=== PATIENT | male | born 1975 | race Caucasian/White ===

== ENCOUNTER 2018-06-05 07:58 | Inpatient (IN) | payer OTHER ==
[~2018-06-05] VITALS: Ht 170.2 cm; Wt 72.0 kg
[2018-06-05] VITALS (10 sets, daily range): BP systolic 89–111; BP diastolic 61–90; PULSE 99–108; RESP 13–36; Ht 170.2 cm; Wt 72.0 kg
[2018-06-05] MEDS ORDERED: CEFEPIME 2GM/50 ML (PMX) 50 ML IVPB STA (08:05)
[2018-06-05] MEDS ORDERED: SOD CHLORIDE 0.9% 1,000 ML IV STA ×2 (08:05)
[2018-06-05] MEDS ORDERED: SODIUM CHLORIDE 0.9% 1L BAG IV* STA (08:05)
[2018-06-05] MEDS ORDERED: AMIODARONE 150 MG INJ IV STA (08:14)
[2018-06-05] MEDS ORDERED: ASPIRIN 325 MG TAB PO ONE (08:30)
[2018-06-05] MEDS ORDERED: VANCOMYCIN 1 GM (PMX) 250 ML IVPB ONE (08:30)
[2018-06-05] MEDS ORDERED: FAMOTIDINE 20 MG INJ IV ONE (08:30)
[2018-06-05] MEDS ORDERED: IOHEXOL 100 ML ONE (09:43)
[2018-06-05] MEDS ORDERED: SOD CHLORIDE 0.9% 100 ML ONE (09:44)
[2018-06-05] MEDS ORDERED: LISI10TA2 PO (09:52)
[2018-06-05] MEDS ORDERED: SPIR25TA PO (09:52)
[2018-06-05] MEDS ORDERED: ASPI-817 PO (09:53)
[2018-06-05] MEDS ORDERED: FURO40TA4 PO (09:53)
[2018-06-05] MEDS ORDERED: FENTAnyl 50 MCG/ML VIAL IV ONE (10:00)
[2018-06-05] MEDS ORDERED: ONDANSETRON 4 MG INJ IV PRN (11:00)
[2018-06-05] MEDS ORDERED: morphine 2 MG INJ IV PRN (11:00)
[2018-06-05] MEDS ORDERED: NACL 0.9% 3 ML SYG IV SCH (11:00)
[2018-06-05] MEDS ORDERED: ACETAMINOPHEN 325 MG TAB PO PRN (11:00)
[2018-06-05] MEDS ORDERED: NITROGLYCERIN (SL) 0.4 MG TAB SL PRN (11:00)
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
[2018-06-05] MEDS ORDERED: POTASSIUM CHLORIDE 100 ML IVPB SCH (11:30)
--- NOTE | 2018-06-05 11:51 | ERD ---
ER Documentation Chief Complaint Chief Complaint PT BIB RA 40 with c/o cardiac arrest and ROSC HPI This is a 42-year-old male with a past medical history of hypertension and suspected congestive heart failure as the patient takes Lasix and spironolactone. The patient was brought into the emergency department by EMS after a witnessed arrest. Bystanders which indicated to EMS were friends and coworkers stated that they noticed the patient walking to work when he suddenly fell over and became unresponsive. EMS indicated there is no signs of trauma or drug paraphernalia and the pupils were dilated. When EMS arrived they indicated that the patient was pulseless and placed on a monitor which indicated ventricular fibrillation. The patient underwent brisk chest compressions according to EMS and they administered cardioversion with the patient being placed on high flow supplemental oxygen. They had return of spontaneous ci rculation. When the patient had arrived to the emergency department he was now alert awake and responsive. He stated he did not remember what it happened. He stated he has a history of amphetamine abuse but denies IV opiate use. He states he has no history of alcoholism. He was not complaining of chest pain but was complaining of mild shortness of breath. He denies any recent travel or prolonged immobilization. ROS All systems reviewed and are negative except as per history of present illness. Medications Home Meds Reported Medications Furosemide* (Furosemide*) 40 Mg Tablet, 40 MG PO DAILY, TAB 06/05/18 Aspirin* (Aspirin* EC) 81 Mg Tablet.dr, 81 MG PO DAILY, TAB 06/05/18 Spironolactone* (Aldactone*) 25 Mg Tablet, 25 MG PO DAILY, #30 TAB 06/05/18 Lisinopril* (Lisinopril*) 10 Mg Tablet, 10 MG PO DAILY, #30 TAB 06/05/18 Allergies Allergies: Coded Allergies: No Known Allergy (Unverified , 06/05/18) PMhx/Soc History of Surgery: No Anesthesia Reaction: No Hx Neurological Disorder: No Hx Respiratory Disorders: No Hx Cardiac Disorders: Yes (CHF, arrythmia) Hx Psychiatric Problems: No Hx Miscellaneous Medical Probl: Yes (HTN) Hx Alcohol Use: No Hx Substance Use: Yes (Meth, Marijuana) Hx Tobacco Use: Yes (pk/day) Smoking Status: Current every day smoker Physical Exam Vitals Vital Signs Date Temp Pulse Resp B/P (MAP) Pulse Ox O2 O2 Flow FiO2 Time Delivery Rate 3/30/19 98.1 104 18 109/85 100 Room Air 10:00 (93) 06/05/18 108 20 89/61 (70) 100 Non 09:00 Rebreather 06/05/18 98.8 128 30 104/69 100 08:01 (81) 06/05/18 Non 15 08:00 Rebreather 06/05/18 15.0 08:00 Physical Exam Constitutional:Well-developed. Well-nourished. Disheveled HEENT:Normocephalic. Atraumatic.Pupils were 4 mm equal round reactive to light. Dry mucous membranes.No tonsillar exudates. Neck: No nuchal rigidity. No lymphadenopathy. No posterior cervical spine tenderness or step-offs. Respiratory: Not using accessory muscles of respiration.Lungs were clear to auscultation bilaterally. No rhonchi. No rales. No wheezing. Cardiovascular: Regular rate regular rhythm.No murmurs. No rubs were appreciated.S1, S2 normal. Distal pulses are palpable 2+ bilaterally. GI: Abdomen was soft. Nontender. Non Distended. No pulsatile abdominal masses or bruits. No rebound. No guarding. Bowel sounds were present and normal. Muscle skeletal: Full range of motion of both the upper and lower extremities bilaterally.Normal muscle tone.No assymetrical calf tenderness or swelling. Skin: Diffuse pallor. No petechia, no purpura. No lesions on the palms or the soles of the feet. No maculopapular rash. NEURO: Patient was alert, awake, orientated to person place and time. The patient appeared very confused and nervous as he stated he did not remember what happened. Gait was not initially observed. Speech had regular rate and articulation. No facial droop. Result Diagram: 06/05/18 0811 06/05/18 0832 Results 24 hrs Laboratory Tests Test 06/05/18 08:02 06/05/18 08:11 06/05/18 08:19 06/05/18 08:32 Bedside Glucose 254 mg/dL White Blood 8.2 10^3/ul Count Red Blood Count 4.83 10^6/ul Hemoglobin 11.3 g/dl Hematocrit 37.8 % Mean Corpuscular 78.3 fl Volume Mean Corpuscular 23.4 pg Hemoglobin Mean Corpuscular 29.9 g/dl Hemoglobin Denise nt Red Cell 16.5 % Distribution Width Platelet Count 287 10^3/UL Mean Platelet 9.4 fl Volume Immature 1.100 % Granulocytes % Neutrophils % 63.5 % Lymphocytes % 26.8 % Monocytes % 5.3 % Eosinophils % 2.7 % Basophils % 0.6 % Nucleated Red 0.0 /100WBC Blood Cells % Immature 0.090 10^3/ul Granulocytes # Neutrophils # 5.2 10^3/ul Lymphocytes # 2.2 10^3/ul Monocytes # 0.4 10^3/ul Eosinophils # 0.2 10^3/ul Basophils # 0.1 10^3/ul Nucleated Red 0.0 10^3/ul Blood Cells # Prothrombin Time 14.3 Sec Prothrombin Time 1.1 Ratio INR 1.10 International Normalized Ratio Activated 27.5 Sec Partial Thrombop last Time Magnesium Level 2.0 mg/dl D-Dimer 3965.54 ng/ml D-Dimer Comment Sodium Level 140 mmol/L Potassium Level 3.4 mmol/L Chloride Level 104 mmol/L Carbon Dioxide 25 mmol/L Level Anion Gap 11 Blood Urea 19 mg/dl Nitrogen Creatinine 1.17 mg/dl Est Glomerular > 60 mL/min Filtrat Rate mL/min Glucose Level 165 mg/dl Lactic Acid 2.9 mmol/L Level Calcium Level 8.6 mg/dl Total Bilirubin 1.3 mg/dl Direct Bilirubin 0.00 mg/dl Indirect 1.3 mg/dl Bilirubin Aspartate Amino 32 IU/L Transf (AST/SGOT ) Alanine 24 IU/L Aminotransferase (ALT/SGPT) Alkaline 102 IU/L Phosphatase Ammonia 24 umol/l Creatine Kinase 129 IU/L Creatine Kinase 2.2 Index Creatinine 2.84 ng/ml Kinase MB (Mass) Troponin I 0.025 ng/ml Total Protein 7.2 g/dl Albumin 3.9 g/dl Globulin 3.30 g/dl Albumin/Globulin 1.18 Ratio Free Thyroxine 2.18 ug/ml Index Thyroxine (T4) 6.5 ug/dl Triiodothyronine 33.6 % (T3) Uptake Salicylates < 1.0 mg/dl Level Acetaminophen < 10.0 ug/ml Level Ethyl Alcohol < 10.0 mg/dl Level Test 06/05/18 09:38 06/05/18 10:50 Blood Gas Blood arterial Specimen Source Arterial Blood 06/05/2018 11:23 Date Drawn :00 AM Arterial Blood 7.335 pH (Temp corrected) Arterial Blood 37.8 mmhg pCO2 (Temp correct) Arterial Blood 131.3 mmHG pO2 (Temp corrected) Arterial Blood 19.7 mmol/L HCO3 Arterial Blood -5.6 mmol/L Base Excess Arterial Blood 98.1 mmHG Oxygen Saturatio n Ronni Test N/A Arterial Blood Right Brachial Gas Puncture Site Arterial 0.9 % Blood Carboxyhem oglobin Arterial Blood 0.3 % Methemoglobin Blood Gas A-a O2 59.9 mmHg Differential Oxyhemoglobin 96.9 % Percent Blood Gas 37.0 C Temperature Blood Gas NASAL CANNULA Modality FiO2 33.0 % Blood Gas MDA Notified Whom Blood Gas 06/05/2018 11:26 Notified Time :24 AM Lactic Acid 1.8 mmol/L Level Current Medications Medications Dose Sig/Love Start Time Status Last (Trade) Ordered Route PRN Stop Time Admin Dose Reason Admin Sodium 1,000 ml @ Q1H STAT 06/05/18 DC 06/05/18 Chloride 1,000 mls/hr IV 08:05 08:19 06/05/18 09:04 Sodium 1,000 ml @ Q1H STAT 06/05/18 DC 06/05/18 Chloride 1,000 mls/hr IV 08:05 10:50 06/05/18 09:04 Sodium 2,160 ml BOLUS OVER 2 06/05/18 DC 06/05/18 Chloride HOURS STAT 08:05 08:05 (NS) IV* 06/05/18 08:10 Famotidine 20 mg ONCE ONCE 06/05/18 DC 06/05/18 (Pepcid Iv) IV 08:30 08:19 06/05/18 08:31 Cefepime HCl 50 ml @ ONCE STAT 06/05/18 DC 06/05/18 100 mls/hr IVPB 08:05 09:02 06/05/18 08:34 Vancomycin 250 ml @ ONCE ONCE 06/05/18 DC 06/05/18 HCl 125 mls/hr IVPB 08:30 09:52 06/05/18 10:29 Amiodarone 150 mg ONCE STAT 06/05/18 DC 06/05/18 HCl IV 08:14 08:26 (Cordarone) 06/05/18 08:15 Aspirin 325 mg ONCE ONCE 06/05/18 DC (Aspirin) PO 08:30 06/05/18 08:31 Fentanyl 50 mcg ONCE ONCE 06/05/18 DC 06/05/18 (Sublimaze) IV 10:00 10:01 06/05/18 10:01 Iohexol 100 ml @ ud STK-MED 06/05/18 DC ONCE .ROUTE 09:43 06/05/18 09:44 Sodium 100 ml @ ud STK-MED 06/05/18 DC 06/05/18 Chloride ONCE .ROUTE 09:44 10:31 06/05/18 09:45 Sodium 1,000 ml @ Q24H IV 06/05/18 Chloride 40 mls/hr 10:58 IV Flush 3 ml PER 06/05/18 (NS 3 ml) PROTOCOL IV 11:00 Lorazepam 0.5 mg Q6H PRN 06/05/18 (Ativan) IV .ANXIETY 11:00 Ondansetron 4 mg Q6H PRN 06/05/18 HCl (Zofran IV 11:00 Inj) NAUSEA/VOMITI NG 1 tab Q5M PRN 06/05/18 Nitroglycerin SL .CHEST 11:00 PAIN (Nitroglyceri n (Sl Tab) 0.4 Mg) 650 mg Q6H PRN 06/05/18 Acetaminophen PO .PAIN 1-3 11:00 (Tylenol OR TEMP Tab) 1 tab Q6H PRN 06/05/18 Acetaminophen PO .PAIN 4-6 11:00 / Hydrocodone Bitart ([place] (5/325)) Morphine 2 mg Q4H PRN 06/05/18 Sulfate IV .PAIN 11:00 (morphine) 7-10 40 mg DAILY@06 06/06/18 Pantoprazole IV 06:00 (Protonix Iv) Aspirin 81 mg DAILY PO 06/06/18 (Aspirin) 09:00 80 mg HS PO 06/05/18 Atorvastatin 21:00 Calcium (Lipitor) Potassium 100 ml @ Q2H IVPB 06/05/18 Chloride 50 mls/hr 11:30 06/05/18 15:29 Procedures/MDM The patient presented to the emergency department with an acute and persistent change in their mental status. The differential diagnosis is diverse however reversible causes such as hypoglycemia, opiate overdose, thiamine deficiency were immediately considered. The patient was placed on a plant protection officer, continuous pulse oximetry and IV access was established. The patients airway was secure however hypoxic events such as anemia, shock, or severe pulmonary disease were all considered as etiologies in this patients presentation. Circulation assessed with good cap refill and did not require fluids or pressure support. Finger stick for rapid glucose determined to be normal. The patient had a suspected witnessed cardiac arrest with return of spontaneous circulation. An EKG at 8:00 was immediately obtained upon arrival into the emergency department. 12 Lead EKG tracing ordered and reviewed by myself showed: Sinus tachycardia 110 bpm and no arrhythmia. DC interval normal. QRS duration normal. No ST segment elevation. Left ventricular hypertrophy No ST segment depression. No changes consistent with acute ischemia. The patient was placed on high flow supplemental oxygen however the patient was maintaining his airway. He was alert awake orientated x3. The patient did have return of spontaneous circulation given his clinical history but did not meet hypothermic protocol as the patient was now alert and awake. I did administer amiodarone. I also administered aspirin. He was complaining of mild shortness of breath and therefore obtained a d-dimer which was elevated. He had a CT scan of his chest reviewed by myself the radiologist which showed no signs of aortic dissection or pulmonary embolism. He did have pulmonary vascular congestion. The patient was given gentle IV fluid hydration as he did have an elevated lactic acid and met Sirs criteria upo n arrival. Therefore he was treated for sepsis of unclear etiology. Patient's infectious symptoms have not stabilized and the patient is at risk of rapid decompensation. The patient will be admitted for careful hydration, antibiotic therapy, and infectious source control. Severe Sepsis Assessment: Infectious Source: unknown End organ damage indicated by: Lactate > 2.0 mmol/L Hypotension( SBP < 90 or >40 mmHG drop or MAP < 65) Acute Resp Failure (sat < 92% w/o oxygen) Severe Sepsis Managment: Blood Cultures X 2 before broad spectrum antibiotics initiated within 3 hours of recognition. 30 ml/kg NS bolus Completed Initial Lactate: 2.9 Repeat Lactate pending Septic Shock Assessment (1 hour post 30 ml/kg fluid bolus): Hypotension (SBP < 90 or 40 mmHg drop, MAP < 65): No Lactic acid > 4.0 No The patient began to complain of chest pain at around 9:09 AM. Therefore an EKG was immediately obtained. This was reviewed by myself and indicated the patient had a normal sinus rhythm at 96 bpm. The patient still had criteria for left ventricular hypertrophy however also showed some ischemic changes in the lateral leads with ST segment depression in V4 V5 and V6 however there is no underlying ST segment elevation or depression. At this time I spoke with the correction officer supervisor Dr. Vinson kindly stated he will come to the bedside to evaluate the patient to discuss possible cardiac catheterization. The patient was not a STEMI. I considered further perfusion assessment with CVP measurement, SCVO2, bedside ultrasound volume assessment, passive leg raise, trial of further fluid bolus. And preceded with gentle IV fluid resuscitation but did not receive a total of 30 cc/kg normal saline due to potential fluid overload. Patient will be admitted in serious condition under the care of Dr. Aldridge to the intensive care unit. Critical Care: Time: 120 minutes Treatments/Evaluations: Close monitoring and treatment of unstable vital signs, cardiorespiratory, and neurologic status, while maintaining tight balance of fluid, respiratory, and cardiac interventions. Time does not include performing any of the above billable procedures. Departure Diagnosis: Primary Impression: Ventricular fibrillation Additional Impressions: Signs of return of spontaneous circulation Sepsis Sepsis type: sepsis due to unspecified organism Qualified Codes: A41.9 - Sepsis, unspecified organism Condition: Serious COLLETTE SHERMAN MD Jun 05, 2018 11:38
[2018-06-05] MEDS: SOD CHLORIDE 0.9% 1,000 ML IV SCH ×2 (12:07→16:36)
--- NOTE | 2018-06-05 12:23 | CONS ---
Assessment/Plan Assessment/Plan Hospital Course (Demo Recall) 1. V. fib cardiac arrest 2. Status post cardiopulmonary arrest secondary to above 3. Congestive heart failure rule out severe cardiomyopathy 4. Rule out acute coronary syndrome [place] 5. History of methamphetamine use 6. Noncompliance 7. Smoker 8. Prolonged QT and EKG Recommendations: Replace electrolytes including potassium magnesium to bring potassium more than 4 a mag more than 2.0 Beta-lucille if blood pressure allows Patient was recommended to undergo urgent left heart catheterization coronary angiogram percutaneous coronary intervention. However patient tells me that "is not ready for it yet" he refused to have it done today. Patient is to be closely monitored for any recurrence of ventricular arrhythmias. He has been strongly advised against using drugs and smoking echocardiogram More than 30 minutes critical care time was for management treatment is critically patient excluding any procedures Thank you for his referral. We will continue to follow along with you ALEX OLSEN MD [facility] Consultation Date/Type/Reason Admit Date/Time Date of Consultation: Jun 05, 2018 Type of Consult Cardiology Reason for Consultation VF cardiac arrest Requesting Provider: COLLETTE SHERMAN MD Date/Time of Note DATE: 06/05/18 TIME: 12:17 Hx of Present Illness Urgent interventional cardiology consultation note Chief complaint: V. fib cardiac arrest Reason for consult: V. fib cardiac arrest History of present illness: Thank you for this referral. History was obtained partially from the patient who is a poor historian. From discussion with physician staff including ER physicians This is a 42-year-old male with past medical history significant for congestive heart failure , meth use [place] [facility] [place]opulmonary arrest found to be in V. fib arrest by paramedics in the field. According to bystanders from EMS patient was going to work and as he was walking from his car to the shop he suddenly passed out. EMS approached patient and although was thought to be pulseless, after the pads were attached was found to be in V. fib arrest and patient was immediately shocked. Patient received quality CPR throughout this time. Per report when he arrived to the hospital he spontaneously instantly woke up alert and oriented and the first things that he said was "what happened to me, was shot or stabbed?". Currently patient is seen but arousable. Patient does admit to using meth last night Patient currently denies chest pain although when he arrived he was given pain medication due to intense pain in the chest. Patient denies any discomfort in the abdomen, nausea, vomiting, headache, leg pain. Allergies: No known drug allergies Medications aspirin lisinopril Lasix. However patient admits that he has not been very compliant taking them Family history: Denies any early coronary artery disease to me Social history: Active smoker. Use drug including meds. Denies heavy alcohol use Past medical history: "Irregular heartbeat, congestive heart failure Review of system: Patient denies all others except for above-mentioned Past Medical History Home Meds Reported Medications Furosemide* (Furosemide*) 40 Mg Tablet, 40 MG PO DAILY, TAB 06/05/18 Aspirin* (Aspirin* EC) 81 Mg Tablet.dr, 81 MG PO DAILY, TAB 06/05/18 Spironolactone* (Aldactone*) 25 Mg Tablet, 25 MG PO DAILY, #30 TAB 06/05/18 Lisinopril* (Lisinopril*) 10 Mg Tablet, 10 MG PO DAILY, #30 TAB 06/05/18 Medications Current Medications Sodium Chloride 1,000 ml @ 40 mls/hr Q24H IV Last administered on 06/05/18at 12:07; Admin Dose 40 MLS/HR; Start 06/05/18 at 10:58 IV Flush (NS 3 ml) 3 ml PER PROTOCOL IV ; Start 06/05/18 at 11:00 Lorazepam (Ativan) 0.5 mg Q6H PRN IV .ANXIETY; Start 06/05/18 at 11:00 Ondansetron HCl (Zofran Inj) 4 mg Q6H PRN IV NAUSEA/VOMITING; Start 06/05/18 at 11:00 Nitroglycerin (Nitroglycerin (Sl Tab) 0.4 Mg) 1 tab Q5M PRN SL .CHEST PAIN; Start 06/05/18 at 11:00 Acetaminophen (Tylenol Tab) 650 mg Q6H PRN PO .PAIN 1-3 OR TEMP; Start 06/05/18 at 11:00 Acetaminophen/ Hydrocodone Bitart ([place] (5/325)) 1 tab Q6H PRN PO .PAIN 4-6; Start 06/05/18 at 11:00 Morphine Sulfate (morphine) 2 mg Q4H PRN IV .PAIN 7-10; Start 06/05/18 at 11:00 Pantoprazole (Protonix Iv) 40 mg DAILY@06 IV ; Start 06/06/18 at 06:00 Aspirin (Aspirin) 81 mg DAILY PO ; Start 06/06/18 at 09:00 Atorvastatin Calcium (Lipitor) 80 mg HS PO ; Start 06/05/18 at 21:00 Potassium Chloride 100 ml @ 50 mls/hr Q2H IVPB Last administered on 06/05/18at 12:06; Admin Dose 50 MLS/HR; Start 06/05/18 at 11:30; Stop 06/05/18 at 15:29 Allergies: Coded Allergies: No Known Allergy (Unverified , 06/05/18) Social History Smoking Status: Current every day smoker Exam/Review of Systems Vital Signs Vitals Vital Signs Date Temp Pulse Resp B/P (MAP) Pulse Ox O2 O2 Flow FiO2 Time Delivery Rate 06/05/18 98.1 104 18 109/85 100 Room Air 10:00 (93) 06/05/18 15 08:00 Exam Exam General: no acute distress HEENT: NC/AT. pupils are equal. round. NECK: NO JVD. no stridor. CV: RRR. systolic murmur; no gallop or rubs. PULM: no wheezing or rhonchi. GI: SOFT, NT, ND, no rebound or guarding Extremity: trace B/L LE edema. no clubbing. neuro: Drowsy but arousable responds appropriately Psych: calm and pleasant rectal: deferred Derm: Multiple tattoos EKG was personally reviewed which shows sinus tach with ST-T wave abnormality consistent with LVH and strain pattern there is prolonged QT also noted Head CT: No acute disease CT of chest: 1. No evidence of pulmonary embolism. 2. Diffuse ground-glass opacities and septal thickening of the bilateral lungs suggestive of pulmonary edema. Superimposed infection is not totally excluded. 3. Stable small shotty mediastinal lymph nodes may be reactive. Recommend atte ntion on follow-up. Labs Result Diagram: 06/05/18 0811 06/05/18 0832 Results 24hrs Laboratory Tests Test 06/05/18 08:02 06/05/18 08:11 06/05/18 08:19 06/05/18 08:32 Bedside Glucose 254 H White Blood 8.2 Count Red Blood Count 4.83 Hemoglobin 11.3 L Hematocrit 37.8 L Mean Corpuscular 78.3 L Volume Mean Corpuscular 23.4 L Hemoglobin Mean Corpuscular 29.9 L Hemoglobin Denise nt Red Cell 16.5 H Distribution Width Platelet Count 287 Mean Platelet 9.4 Volume Immature 1.100 H Granulocytes % Neutrophils % 63.5 Lymphocytes % 26.8 Monocytes % 5.3 Eosinophils % 2.7 Basophils % 0.6 Nucleated Red 0.0 Blood Cells % Immature 0.090 H Granulocytes # Neutrophils # 5.2 Lymphocytes # 2.2 Monocytes # 0.4 Eosinophils # 0.2 Basophils # 0.1 Nucleated Red 0.0 Blood Cells # Prothrombin Time 14.3 Prothrombin Time 1.1 Ratio INR 1.10 International Normalized Ratio Activated 27.5 Partial Thrombop last Time Magnesium Level 2.0 D-Dimer 3965.54 H D-Dimer Comment Sodium Level 140 Potassium Level 3.4 L Chloride Level 104 Carbon Dioxide 25 Level Anion Gap 11 Blood Urea 19 Nitrogen Creatinine 1.17 Est Glomerular > 60 Filtrat Rate mL/min Glucose Level 165 Lactic Acid 2.9 *H Level Calcium Level 8.6 Total Bilirubin 1.3 Direct Bilirubin 0.00 Indirect 1.3 H Bilirubin Aspartate Amino 32 Transf (AST/SGOT ) Alanine 24 Aminotransferase (ALT/SGPT) Alkaline 102 Phosphatase Ammonia 24 Creatine Kinase 129 Creatine Kinase 2.2 Index Creatinine 2.84 H Kinase MB (Mass) Troponin I 0.025 Total Protein 7.2 Albumin 3.9 Globulin 3.30 H Albumin/Globulin 1.18 Ratio Free Thyroxine 2.18 Index Thyroxine (T4) 6.5 Triiodothyronine 33.6 (T3) Uptake Salicylates < 1.0 L Level Acetaminophen < 10.0 L Level Ethyl Alcohol < 10.0 H Level Test 06/05/18 09:38 06/05/18 10:40 06/05/18 10:50 Blood Gas Blood arterial Specimen Source Arterial Blood 06/05/2018 11:23 Date Drawn :00 AM Arterial Blood 7.335 L pH (Temp corrected) Arterial Blood 37.8 pCO2 (Temp correct) Arterial Blood 131.3 H pO2 (Temp corrected) Arterial Blood 19.7 L HCO3 Arterial Blood -5.6 L Base Excess Arterial Blood 98.1 H Oxygen Saturatio n Ronni Test N/A Arterial Blood Right Brachial Gas Puncture Site Arterial 0.9 Blood Carboxyhem oglobin Arterial Blood 0.3 Methemoglobin Blood Gas A-a O2 59.9 H Differential Oxyhemoglobin 96.9 Percent Blood Gas 37.0 Temperature Blood Gas NASAL CANNULA Modality FiO2 33.0 Blood Gas MDA Notified Whom Blood Gas 06/05/2018 11:26 Notified Time :24 AM Urine Color YELLOW Urine Clarity SLIGHTLY CLOUDY A Urine pH 6.0 Urine Specific 1.038 H [place] Urine Ketones NEGATIVE Urine Nitrite NEGATIVE Urine Bilirubin NEGATIVE Urine NEGATIVE Urobilinogen Urine Leukocyte NEGATIVE Esterase Urine 15 H Microscopic RBC Urine 17 H Microscopic WBC Urine Bacteria FEW A Urine Hemoglobin NEGATIVE Urine Glucose 1+ H Urine Total 2+ H Protein Urine Opiates Negative Screen Urine Negative Barbiturates Urine positive Amphetamines Screen Urine Negative Benzodiazepines Screen Urine Cocaine Negative Screen Urine Negative Cannabinoids Lactic Acid 1.8 Level Medications Medications Current Medications Sodium Chloride 1,000 ml @ 40 mls/hr Q24H IV Last administered on 06/05/18at 12:07; Admin Dose 40 MLS/HR; Start 06/05/18 at 10:58 IV Flush (NS 3 ml) 3 ml PER PROTOCOL IV ; Start 06/05/18 at 11:00 Lorazepam (Ativan) 0.5 mg Q6H PRN IV .ANXIETY; Start 06/05/18 at 11:00 Ondansetron HCl (Zofran Inj) 4 mg Q6H PRN IV NAUSEA/VOMITING; Start 06/05/18 at 11:00 Nitroglycerin (Nitroglycerin (Sl Tab) 0.4 Mg) 1 tab Q5M PRN SL .CHEST PAIN; Start 06/05/18 at 11:00 Acetaminophen (Tylenol Tab) 650 mg Q6H PRN PO .PAIN 1-3 OR TEMP; Start 06/05/18 at 11:00 Acetaminophen/ Hydrocodone Bitart ([place] (5/325)) 1 tab Q6H PRN PO .PAIN 4-6; Start 06/05/18 at 11:00 Morphine Sulfate (morphine) 2 mg Q4H PRN IV .PAIN 7-10; Start 06/05/18 at 11:00 Pantoprazole (Protonix Iv) 40 mg DAILY@06 IV ; Start 06/06/18 at 06:00 Aspirin (Aspirin) 81 mg DAILY PO ; Start 06/06/18 at 09:00 Atorvastatin Calcium (Lipitor) 80 mg HS PO ; Start 06/05/18 at 21:00 Potassium Chloride 100 ml @ 50 mls/hr Q2H IVPB Last administered on 06/05/18at 12:06; Admin Dose 50 MLS/HR; Start 06/05/18 at 11:30; Stop 06/05/18 at 15:29 ALEX OLSEN MD Jun 05, 2018 12:23
[2018-06-05] MEDS ORDERED: MAGNESIUM SULFATE 2 GM/50 ML 50 ML IVPB ONE (12:30)
[2018-06-05] MEDS: HYDROCODONE/APAP (5/325) TAB PO PRN (13:26)
[2018-06-05] MEDS ORDERED: POTASSIUM CHLORIDE 20 MEQ POWDER FOR ORAL SOLN PO ONE (13:30)
[2018-06-05] MEDS: ATORVASTATIN 80 MG TAB PO SCH (20:37)
[2018-06-06] VITALS (19 sets, daily range): BP systolic 106–139; BP diastolic 69–100; PULSE 97–122; RESP 11–33
[2018-06-06] MEDS: HYDROCODONE/APAP (5/325) TAB PO PRN (03:11)
[2018-06-06] MEDS ORDERED: PANTOPRAZOLE 40 MG INJ IV SCH (06:00)
[2018-06-06] MEDS: ASPIRIN 81 MG TAB PO SCH (08:56)
--- NOTE | 2018-06-06 09:21 | PN ---
Date/Time of Note Date/Time of Note DATE: 06/06/18 TIME: Objective Vitals Vital Signs Date Temp Pulse Resp B/P (MAP) Pulse Ox O2 O2 Flow FiO2 Time Delivery Rate 06/06/18 97.7 105 31 126/90 95 Room Air 08:00 (102) 06/05/18 2.0 17:00 Intake and Output 06/05/18 06/05/18 06/06/18 1515:00 23:00 07:00 IntakeIntake Total 2300 ml 1210 ml 580 ml OutputOutput Total 375 ml BalanceBalance 2300 ml 835 ml 580 ml Results Result Diagram: 06/06/18 0450 06/06/18 0449 Medications Medications Current Medications Sodium Chloride 1,000 ml @ 40 mls/hr Q24H IV Last administered on 06/05/18at 16:36; Admin Dose 40 MLS/HR; Start 06/05/18 at 10:58 IV Flush (NS 3 ml) 3 ml PER PROTOCOL IV ; Start 06/05/18 at 11:00 Lorazepam (Ativan) 0.5 mg Q6H PRN IV .ANXIETY; Start 06/05/18 at 11:00 Ondansetron HCl (Zofran Inj) 4 mg Q6H PRN IV NAUSEA/VOMITING; Start 06/05/18 at 11:00 Nitroglycerin (Nitroglycerin (Sl Tab) 0.4 Mg) 1 tab Q5M PRN SL .CHEST PAIN; Start 06/05/18 at 11:00 Acetaminophen (Tylenol Tab) 650 mg Q6H PRN PO .PAIN 1-3 OR TEMP; Start 06/05/18 at 11:00 Acetaminophen/ Hydrocodone Bitart ([place] (5/325)) 1 tab Q6H PRN PO .PAIN 4-6 Last administered on 06/06/18at 03:11; Admin Dose 1 TAB; Start 06/05/18 at 11:00 Morphine Sulfate (morphine) 2 mg Q4H PRN IV .PAIN 7-10; Start 06/05/18 at 11:00 Pantoprazole (Protonix Iv) 40 mg DAILY@06 IV Last administered on 06/06/18at 05:41; Admin Dose 40 MG; Start 06/06/18 at 06:00 Aspirin (Aspirin) 81 mg DAILY PO Last administered on 06/06/18at 08:56; Admin Dose 81 MG; Start 06/06/18 at 09:00 Atorvastatin Calcium (Lipitor) 80 mg HS PO Last administered on 06/05/18at 20:37; Admin Dose 80 MG; Start 06/05/18 at 21:00 VTE Prophylaxis Risk score (from [facility] [place] risk: 2 SCD applied (from [facility] [place]): No SCD contraindication: other Lines/Catheters IV Catheter Type: Hernandez in Place: No Assessment/Plan Hospital Course Subjective Patient doing well, just complaining of chest discomfort when he takes breaths. Objective Physical exam General: Patient is laying in bed and answers questions appropriately Mentation: Patient is alert and oriented 4, Head: Normocephalic atraumatic Eyes: EOMI, pupils reactive to light Neck: Supple, nontender, midline Respiratory: Clear to auscultation bilaterally Cardiovascular: regular rate, no obvious murmurs Gastrointestinal: non-tender to palpation, bowel sounds heard. Neurological: Moves all extremities spontaneously Skin: No new skin lesions Assessment and plan Cardiopulmonary arrest, V. fib arrest -Shock x1 in the field -Regained complete consciousness, alert and oriented x4, at baseline no apparent residual effects -Most likely secondary to meth use recently and his already failing heart -EKG concerning for ischemia, cardiology recommended cardiac cath, however patient refused yesterday, will think about it, possible today. -Non-ST elevation CO per cardiology per ER doctor -CT head negative, CTA of the chest showing some edema, likely secondary to above cardiopulmonary arrest Likely congestive heart failure -Patient states that he has some heart issues due to meth, likely CHF -Echo noted -Cardiology consulted -Resume home meds of diuretics and blood pressure meds when okay with cardiology Elevated lactic acid -Likely due to cardiopulmonary arrest, monitor Chest pain -Secondary to above cardiopulmonary arrest as well as CPR, pain management as needed Electronic derangement -Replace as needed If disposition -Patient is alert and oriented, cardiology recommendations appreciated, patient to decide if he is okay with cardiac cath or not. DEBI KING Jun 06, 2018 09:21
[2018-06-06] MEDS: SOD CHLORIDE 0.9% 1,000 ML IV SCH (15:52)
[2018-06-06] MEDS ORDERED: morphine LIQ (10 MG/5 ML) CUP PO PRN (16:00)
--- NOTE | 2018-06-06 16:21 | PN ---
DATE: 06/06/2018 INTERVENTIONAL CARDIOLOGY FOLLOWUP PROGRESS NOTE AND CRITICAL CARE SUBJECTIVE: I discussed with the staff. Telemetry was reviewed. The patient has remained in sinus tachycardia mostly. I discussed with 2 brothers in detail. The patient did complain of chest wall t enderness. It is worse with touch. He denies PND or orthopnea to me. MEDICATIONS: Reviewed as per medical reconciliation sheet which was personally reviewed. PHYSICAL EXAMINATION: VITAL SIGNS: Temperature 98, heart of 110, blood pressure of 120/100, respiratory rate of 29. GENERAL: Appears anxious gentleman. HEENT: Normocephalic, atraumatic. Pupils are equal and round. CARDIOVASCULAR: Tachycardic. PULMONARY: With no wheezes heard. Minimal rhonchi at the base. GASTROINTESTINAL: Soft, nontender. CHEST: Positive for reproducible chest wall tenderness with mild palpation. EXTREMITIES: With trivial lower extremity edema. NEUROLOGIC: He is awake and alert. PSYCHIATRIC: Anxious, overall stable. LABORATORY: WBC of 10.2, hemoglobin 11.1, platelets of 294. Sodium 137, potassium 5, BUN of 22, cre atinine 1.18, glucose of 117. Troponin has been negative. LDL is 87, HDL of 27. TSH is 0.46. DIAGNOSTIC DATA: Echocardiogram has showed severe LV dysfunction. ASSESSMENT AND PLAN: 1. Cardiac arrest. 2. Ventricular fibrillation, status post cardioversion. 3. Severe cardiomyopathy. 4. History of drug use. 5. Smoker. 6. History of noncompliance. 7. Prolonged QT on the EKG. RECOMMENDATIONS: Electrolytes including potassium and magnesium will be replaced as needed. Try to keep the potassium more than 4 and magnesium more than 2. I will start the patient on digoxin and ca rvedilol as tolerated increased. For now, we will continue with aspirin and statin. I have had a ve ry lengthy discussion with the patient as well as his 2 brothers. His 2 brothers appeared to be very understanding. I have explained to them that my recommendations are for the patient to get coronary angiography done and if an intervention needs to be done to have a PCI done. The patient also furth er needs to completely stay away from drugs and smoking and has to be using medication on a regular b asis. I also recommended if the patient coronary angio does not show any significant obstructive cor onary artery disease, then he would need to have a defibrillator prior to discharge. If there is a s ignificant obstructive coronary artery disease that can be intervened, then the best option would be to place a LifeVest for the next 3 months and reassess the LV function in about 3 months or so to see if he will qualify for ICD. Risks and benefits of the procedure were discussed with the patient and his 2 brothers in detail. Risk of procedure including infection, vascular complication, bleed ing complication, pneumothorax, hemothorax, perforation, [place], arrhythmia, and renal failure were discussed with them. The patient has not consented to procedure yet. If he agrees to it, we will s chedule the patient for the procedure for tomorrow. We may want to closely monitor him. Transcutane ous patches will be placed on him just in case he needed. More than 40 minutes of critical care time was spent on management and treatment of this critically i ll patient excluding any procedures. Dictated By: ALEX OLSEN MD AV/NTS Conf#: [id number] DID#: [id number] CC: DEBI KING MD;*EndCC*
[2018-06-06] MEDS: LORAZEPAM 2 MG INJ IV PRN (16:35)
[2018-06-06] MEDS: ATORVASTATIN 80 MG TAB PO SCH (20:35)
[2018-06-06] MEDS ORDERED: ZOLPIDEM 5 MG TAB PO ONE (21:30)
[2018-06-07] VITALS (13 sets, daily range): BP systolic 130–147; BP diastolic 77–91; PULSE 97–109; RESP 18–20
[2018-06-07] MEDS: LORAZEPAM 2 MG INJ IV PRN ×2 (01:56→09:29)
[2018-06-07] MEDS: PANTOPRAZOLE (EC) 40 MG TAB PO SCH (06:45)
[2018-06-07] MEDS: ASPIRIN 81 MG TAB PO SCH (09:05)
--- NOTE | 2018-06-07 09:31 | PN ---
Date/Time of Note Date/Time of Note DATE: 06/07/18 TIME: 09:31 Assessment/Plan VTE Prophylaxis Risk score (from Ns)>0 risk: 1 SCD applied (from Ns): No SCD contraindicated: low risk/ambulating Pharmacological prophylaxis: NA/contraindicated Pharm contraindication: low risk/ambulating Lines/Catheters IV C[facility]ter Type [facility]from [facility]): Peripheral IV Urinary Cath still in place: No Assessment/Plan Assessment/Plan 1. Cardiopulmonary arrest s/p V. fib arrest - Most likely secondary to meth use - Cardiology on board and appreciate recommendations. Patient to decide if amenable to cardiac cath - CT head negative, CTA of the chest showing some edema, likely secondary to above cardiopulmonary arrest 2. Severe CM - Cardiology on board and will continue current treatment - counseled about the importance of abstaining from meth use. Likely congestive heart failure - ECHO results noted 3. Anemia - will check iron levels 4. h/o substance abuse - Utox results noted 5. Acute systolic and diastolic heart failure - CTA with pulm edema and BNP elevation noted - ECHO results with EF 15% - will need defibrillator prior to d/c given h/o VFib arrest and low EF 6. Disposition - Patient to decide if he would like to proceed with cardiac cath prior to discharge Result Diagram: 06/07/18 0441 06/07/18 0441 Results 24hrs Laboratory Tests Test 06/07/18 04:41 White Blood Count 9.8 Red Blood Count 4.47 L Hemoglobin 10.7 L Hematocrit 33.9 L Mean Corpuscular Volume 75.8 L Mean Corpuscular Hemoglobin 23.9 L Mean Corpuscular Hemoglobin Concent 31.6 L Red Cell Distribution Width 17.4 H Platelet Count 297 Mean Platelet Volume 9.9 Immature Granulocytes % 0.600 H Neutrophils % 67.8 Lymphocytes % 23.6 Monocytes % 6.1 Eosinophils % 1.1 Basophils % 0.8 Nucleated Red Blood Cells % 0.0 Immature Granulocytes # 0.060 H Neutrophils # 6.6 Lymphocytes # 2.3 Monocytes # 0.6 Eosinophils # 0.1 Basophils # 0.1 Nucleated Red Blood Cells # 0.0 Sodium Level 137 Potassium Level 4.7 Chloride Level 100 Carbon Dioxide Level 24 Anion Gap 13 Blood Urea Nitrogen 21 H Creatinine 1.19 Est Glomerular Filtrat Rate mL/min > 60 Glucose Level 129 Calcium Level 9.0 Phosphorus Level 2.7 Magnesium Level 2.1 Subjective 24 Hr Interval Summary Free Text/Dictation Patient resting and in no acute distress. No acute overnight events. Exam/Review of Systems Exam Vitals Vital Signs Date Temp Pulse Resp B/P (MAP) Pulse Ox O2 O2 Flow FiO2 Time Delivery Rate 06/07/18 98.2 102 18 135/87 98 07:33 (103) 06/06/18 Room Air 17:08 06/05/18 2.0 17:00 Intake and Output 06/06/18 06/06/18 06/07/18 1515:00 23:00 07:00 IntakeIntake Total 600 ml 802 ml OutputOutput Total 300 ml 200 ml BalanceBalance 300 ml -200 ml 802 ml Exam General: Patient is laying in bed. no acute distress Neck: Supple, nontender, midline Respiratory: Clear to auscultation bilaterally. no wheezing or rhonchi Cardiovascular: regular rhythm, tachycardia, no obvious murmurs Gastrointestinal: non-tender to palpation, bowel sounds heard. Neurological: Moves all extremities spontaneously Skin: No new skin lesions Results Results 24hrs Laboratory Tests Test 06/07/18 04:41 White Blood Count 9.8 Red Blood Count 4.47 L Hemoglobin 10.7 L Hematocrit 33.9 L Mean Corpuscular Volume 75.8 L Mean Corpuscular Hemoglobin 23.9 L Mean Corpuscular Hemoglobin Concent 31.6 L Red Cell Distribution Width 17.4 H Platelet Count 297 Mean Platelet Volume 9.9 Immature Granulocytes % 0.600 H Neutrophils % 67.8 Lymphocytes % 23.6 Monocytes % 6.1 Eosinophils % 1.1 Basophils % 0.8 Nucleated Red Blood Cells % 0.0 Immature Granulocytes # 0.060 H Neutrophils # 6.6 Lymphocytes # 2.3 Monocytes # 0.6 Eosinophils # 0.1 Basophils # 0.1 Nucleated Red Blood Cells # 0.0 Sodium Level 137 Potassium Level 4.7 Chloride Level 100 Carbon Dioxide Level 24 Anion Gap 13 Blood Urea Nitrogen 21 H Creatinine 1.19 Est Glomerular Filtrat Rate mL/min > 60 Glucose Level 129 Calcium Level 9.0 Phosphorus Level 2.7 Magnesium Level 2.1 Medications Medication Current Medications Sodium Chloride 1,000 ml @ 40 mls/hr Q24H IV Last administered on 06/06/18at 15:52; Admin Dose 40 MLS/HR; Start 06/05/18 at 10:58 IV Flush (NS 3 ml) 3 ml PER PROTOCOL IV ; Start 06/05/18 at 11:00 Lorazepam (Ativan) 0.5 mg Q6H PRN IV .ANXIETY Last administered on 06/07/18 09:29; Admin Dose 0.5 MG; Start 06/05/18 at 11:00 Ondansetron HCl (Zofran Inj) 4 mg Q6H PRN IV NAUSEA/VOMITING; Start 06/05/18 at 11:00 Nitroglycerin (Nitroglycerin (Sl Tab) 0.4 Mg) 1 tab Q5M PRN SL .CHEST PAIN; Start 06/05/18 at 11:00 Acetaminophen (Tylenol Tab) 650 mg Q6H PRN PO .PAIN 1-3 OR TEMP; Start 06/05/18 at 11:00 Acetaminophen/ Hydrocodone Bitart ([place] (5/325)) 1 tab Q6H PRN PO .PAIN 4-6 Last administered on 06/06/18at 03:11; Admin Dose 1 TAB; Start 06/05/18 at 11:00 Aspirin (Aspirin) 81 mg DAILY PO Last administered on 06/07/18 09:05; Admin Dose 81 MG; Start 06/06/18 at 09:00 Atorvastatin Calcium (Lipitor) 80 mg HS PO Last administered on 06/06/18at 20:35; Admin Dose 80 MG; Start 06/05/18 at 21:00 Digoxin (Digoxin) 0.125 mg DAILY@13 PO ; Start 06/07/18 at 13:00 Carvedilol (Coreg) 3.125 mg BID PO Last administered on 06/07/18at 09:06; Admin Dose 3.125 MG; Start 06/06/18 at 21:00 Pantoprazole (Protonix Tab) 40 mg DAILY@06 PO Last administered on 06/07/18at 06:45; Admin Dose 40 MG; Start 06/07/18 at 06:00 Morphine Sulfate (morphine) 6 mg Q4H PRN PO .PAIN 7-10; Start 06/06/18 at 16:00 ESTHER TABARES MD Jun 07, 2018 09:31
--- NOTE | 2018-06-07 11:35 | RADRPT ---
Echocardiogram Report Patient Name: MIAH ENCARNACIONPatient ID: [id number] : 1975 (42y 6m)Study Date: 06/05/2018 12:51:37 PM Gender: MAccession #: [id number] [place] [facility] [place] Ref.Physician: DEBI KING Height(Cm): 170 BSA: 1.91Weight(Kg): 77.1 Quality: GoodAccount #: Procedures: Echocardiographic Report: Transthoracic echocardiogram with complete 2D, M-Mode, and Doppler examination. Indications: Cardiac Arrest. Measurements: 2D/M Mode Doppler Measurement Value Normal Range Measurement Value Normal Range LA Volume 85.7 [ 18.0 - 58.0 ] ml AV Peak Edy 0.7 [ 100.0 - 170.0 ] cm /sec LA Volume Index 45 [ 16 - 34 ] ml/m2 AV Peak PG 2.0 [ 2.0 - 9.0 ] mmHg LVIDd 2D 7.2 [ 4.2 - 5.8 ] cm LVOT Peak Edy 0.2 [ 70.0 - 110.0 ] cm/ sec LVIDs 2D 6.5 [ 2.5 - 4.0 ] cm MV E Peak Edy 1.1 [ 60.0 - 130.0 ] cm/ sec LVPWd 2D 1.0 [ 0.6 - 1.0 ] cm Lat E` Edy 0.1 [ 10.0 - 15.0 ] cm/s ec IVSd 2D 0.9 [ 0.6 - 1.0 ] cm Lateral E/E` 16.5 [ 1.0 - 2.0 ] ratio AoR Diam 2D 3.2 [ 2.6 - 3.4 ] cm Med E` Edy 0.0 cm/sec EF 2D 20.3 [ 52.0 - 72.0 ] percent TR Peak Edy 2.8 [ 100.0 - 280.0 ] cm /sec LA Dimen 2D 3.8 [ 3.0 - 4.0 ] cm TR Peak PG 31.0 mmHg PV Peak Edy 0.7 [ 40.0 - 80.0 ] cm/s ec PV Peak PG 2.0 mmHg RVSP 51.0 [ 10.0 - 36.0 ] mmHg RA Pressure 20.0 mmHg Findings: Left Ventricle: Normal left ventricular wall thickness. Severe enlargement of left ventricle cavity. Severe left ventricular systolic dysfunction. Ejection fraction is visually estimated at 15 %. Tissue Doppler/Mitral Doppler indices are consistent with restrictive physiology with markedly elevated left atrial pressure (Stage III-IV diastolic dysfunction). E/E'= 30. Right Ventricle: Normal right ventricular size. Moderate right ventricular hypokinesis. Left Atrium: There is mild enlargement of left atrium. LA Volume Index= 45. Right Atrium: The right atrium is normal in size. Atrial Septum: Normal atrial septum. Mitral Valve: Mitral valve leaflets appear mildly thickened. Mild to moderate mitral valve regurgitation. Aortic Valve: No significant aortic stenosis or insufficiency. Normal trileaflet aortic valve structure. Aortic cusps appear mildly calcified. Tricuspid Valve: Normal appearance of the tricuspid valve. Estimated peak PA systolic pressure 51 mmHg. There is mild to moderate tricuspid regurgitation. Pulmonic Valve: Normal pulmonic valve appearance. There is trace pulmonic regurgitation. Pericardium: Normal pericardium with no significant pericardial effusion. Aorta: Normal aortic root. IVC: Dilated inferior vena cava with poor inspiratory collapse consistent with elevated right atrial pressures. Pulmonary Artery: Normal pulmonary artery size. Conclusions: Normal left ventricular wall thickness. Severe enlargement of left ventricle cavity. Severe left ventricular systolic dysfunction. Ejection fraction is visually estimated at 15 %. Tissue Doppler/Mitral Doppler indices are consistent with restrictive physiology with markedly elevated left atrial pressure (Stage III-IV diastolic dysfunction). E/E'= 30. There is mild enlargement of left atrium. LA Volume Index= 45. Mitral valve leaflets appear mildly thickened. Mild to moderate mitral valve regurgitation. No significant aortic stenosis or insufficiency. Normal trileaflet aortic valve structure. Aortic cusps appear mildly calcified. Normal appearance of the tricuspid valve. Estimated peak PA systolic pressure 51 mmHg. There is mild to moderate tricuspid regurgitation. Electronically Signed By: Jarek Mejia 2018-06-05 14:01:30 PDT
[2018-06-07] MEDS: DIGOXIN 0.125 MG TAB PO SCH (13:25)
[2018-06-07] MEDS: HYDROCODONE/APAP (5/325) TAB PO PRN (15:23)
--- NOTE | 2018-06-07 17:45 | CONS ---
Consult Date/Type/Reason Admit Date/Time Jun 05, 2018 at 11:05 Initial Consult Date 06/05/18 Type of Consultation: CV Requesting Provider: COLLETTE SHERMAN MD Date/Time of Note DATE: 06/07/18 TIME: 17:41 Subjective Interventional cardiology follow-up progress note Subjective: Case discussed with the staff. Discussed with the patient younger brother at e bedside. Telemetry was reviewed. Patient has been remained in sinus rhythm however he has not been compliant with telemetry. He has been taking it on multiple times. Patient also has been agitated and has not been following be compliant. He has chest wall tenderness on palpation still. Objective: General: no acute distress HEENT: NC/AT. pupils are equal. round. NECK: NO JVD. no stridor. CV: RRR. systolic murmur; no gallop or rubs. PULM: no wheezing or rhonchi. Chest: Positive reproducible chest wall tenderness GI: SOFT, NT, ND, no rebound or guarding Extremity: trace B/L LE edema. no clubbing. neuro: awake but drowsy keep closing his eyes. Psych: Easily agitated. rectal: deferred Echocardiogram was personally reviewed which shows: Normal left ventricular wall thickness. Severe enlargement of left ventricle cavity. Severe left ventricular systolic dysfunction. Ejection fraction is visually estimated at 15 %. Tissue Doppler/Mitral Doppler indices are consistent with restrictive physiology with markedly elevated left atrial pressure (Stage III-IV diastolic dysfunction). E/E'= 30. There is mild enlargement of left atrium. LA Volume Index= 45. Mitral valve leaflets appear mildly thickened. Mild to moderate mitral valve regurgitation. No significant aortic stenosis or insufficiency. Normal trileaflet aortic valve structure. Aortic cusps appear mildly calcified. Normal appearance of the tricuspid valve. Estimated peak PA systolic pressure 51 mmHg. There is mild to moderate tricuspid regurgitation. Objective Vitals Vital Signs Date Temp Pulse Resp B/P (MAP) Pulse Ox O2 O2 Flow FiO2 Time Delivery Rate 06/07/18 98.0 108 18 147/77 98 15:38 (100) 06/07/18 Nasal 11:28 Cannula 06/05/18 2.0 17:00 Intake and Output 06/06/18 06/06/18 06/07/18 1515:00 23:00 07:00 IntakeIntake Total 600 ml 802 ml OutputOutput Total 300 ml 200 ml BalanceBalance 300 ml -200 ml 802 ml Results/Medications Result Diagram: 06/07/18 0441 06/07/18 0441 Results 24 hrs Laboratory Tests Test 06/07/18 04:41 White Blood Count 9.8 Red Blood Count 4.47 L Hemoglobin 10.7 L Hematocrit 33.9 L Mean Corpuscular Volume 75.8 L Mean Corpuscular Hemoglobin 23.9 L Mean Corpuscular Hemoglobin Concent 31.6 L Red Cell Distribution Width 17.4 H Platelet Count 297 Mean Platelet Volume 9.9 Immature Granulocytes % 0.600 H Neutrophils % 67.8 Lymphocytes % 23.6 Monocytes % 6.1 Eosinophils % 1.1 Basophils % 0.8 Nucleated Red Blood Cells % 0.0 Immature Granulocytes # 0.060 H Neutrophils # 6.6 Lymphocytes # 2.3 Monocytes # 0.6 Eosinophils # 0.1 Basophils # 0.1 Nucleated Red Blood Cells # 0.0 Sodium Level 137 Potassium Level 4.7 Chloride Level 100 Carbon Dioxide Level 24 Anion Gap 13 Blood Urea Nitrogen 21 H Creatinine 1.19 Est Glomerular Filtrat Rate mL/min > 60 Glucose Level 129 Calcium Level 9.0 Phosphorus Level 2.7 Magnesium Level 2.1 Home Meds Reported Medications Furosemide* (Furosemide*) 40 Mg Tablet, 40 MG PO DAILY, TAB 06/05/18 Aspirin* (Aspirin* EC) 81 Mg Tablet.dr, 81 MG PO DAILY, TAB 06/05/18 Spironolactone* (Aldactone*) 25 Mg Tablet, 25 MG PO DAILY, #30 TAB 06/05/18 Lisinopril* (Lisinopril*) 10 Mg Tablet, 10 MG PO DAILY, #30 TAB 06/05/18 Medications Current Medications Sodium Chloride 1,000 ml @ 40 mls/hr Q24H IV Last administered on 06/06/18at 1 5:52; Admin Dose 40 MLS/HR; Start 06/05/18 at 10:58 IV Flush (NS 3 ml) 3 ml PER PROTOCOL IV ; Start 06/05/18 at 11:00 Lorazepam (Ativan) 0.5 mg Q6H PRN IV .ANXIETY Last administered on 06/07/18at 09:29; Admin Dose 0.5 MG; Start 06/05/18 at 11:00 Ondansetron HCl (Zofran Inj) 4 mg Q6H PRN IV NAUSEA/VOMITING; Start 06/05/18 at 11:00 Nitroglycerin (Nitroglycerin (Sl Tab) 0.4 Mg) 1 tab Q5M PRN SL .CHEST PAIN; Start 06/05/18 at 11:00 Acetaminophen (Tylenol Tab) 650 mg Q6H PRN PO .PAIN 1-3 OR TEMP; Start 06/05/18 at 11:00 Acetaminophen/ Hydrocodone Bitart ([place] (5/325)) 1 tab Q6H PRN PO .PAIN 4-6 Last administered on 06/07/18at 15:23; Admin Dose 1 TAB; Start 06/05/18 at 11:00 Aspirin (Aspirin) 81 mg DAILY PO Last administered on 06/07/18at 09:05; Admin Dose 81 MG; Start 06/06/18 at 09:00 Atorvastatin Calcium (Lipitor) 80 mg HS PO Last administered on 06/06/18at 20:35; Admin Dose 80 MG; Start 06/05/18 at 21:00 Digoxin (Digoxin) 0.125 mg DAILY@13 PO Last administered on 06/07/18at 13:25; Admin Dose 0.125 MG; Start 06/07/18 at 13:00 Carvedilol (Coreg) 3.125 mg BID PO Last administered on 06/07/18at 09:06; Admin Dose 3.125 MG; Start 06/06/18 at 21:00 Pantoprazole (Protonix Tab) 40 mg DAILY@06 PO Last administered on 06/07/18at 06:45; Admin Dose 40 MG; Start 06/07/18 at 06:00 Morphine Sulfate (morphine) 6 mg Q4H PRN PO .PAIN 7-10; Start 06/06/18 at 16:00 Assessment/Plan Hospital Course (Demo Recall) 1. Status post cardiac arrest. 2. Ventricular fibrillation, status post cardioversion. 3. Severe cardiomyopathy. 4. History of drug use. 5. Smoker. 6. History of noncompliance. 7. Prolonged QT on the EKG. RECOMMENDATIONS: Electrolytes including potassium and magnesium will be replaced as needed. Try to keep the potassium more than 4 and magnesium more than 2. Continue with digoxin Continue with an increase carvedilol as tolerated increased. For now, we will continue with aspirin and statin. I have had a very lengthy discussion with the patient as well as his 2 brothers. His 2 brothers appeared to be very understanding. I have explained to them that my recommendations are for the patient to get coronary angiography done and if an intervention needs to be done to have a PCI done. The patient also further needs to completely stay away from drugs and smoking and has to be using medication on a regular basis. I also recommended if the patient coronary angio does not show any significant obstructive coronary artery disease, then he would need to have a defibrillator prior to discharge. If there is a significant obstructive coronary artery disease that can be intervened, then the best option would be to place a LifeVest for the next 3 months and reassess the LV function in about 3 months or so to see if he will qualify for ICD. Risks and benefits of the procedure were discussed with the patient and his 2 brothers in detail. Risk of procedure including but not limited to risk of infection, vascular complication, bleeding complication, pneumothorax, hemothorax, perforation, OR, arrhythmia, and renal failure were discussed with them. The patient has not consented to procedure yet and appears confused and cornel tated today and cannot give me a straight answer.. If he agrees to it, we will schedule the patient for the procedure for tomorrow. Importance of compliance including telemetry monitoring discussed with the patient. He does answer that it is annoying and does not wanted we may want to closely monitor him. Transcutaneous patches placed on him just in case he needed, but patient has not been very compliant with Thank you for his referral. We will continue to follow along with you ALEX OLSEN MD [facility] ALEX OLSEN MD Jun 07, 2018 17:45
[2018-06-07] MEDS: ATORVASTATIN 80 MG TAB PO SCH (21:00)
[2018-06-08] VITALS (22 sets, daily range): BP systolic 107–137; BP diastolic 78–100; PULSE 78–103; RESP 10–23
[2018-06-08] MEDS: HYDROCODONE/APAP (5/325) TAB PO PRN ×2 (02:13→20:56)
[2018-06-08] MEDS: PANTOPRAZOLE (EC) 40 MG TAB PO SCH (06:49)
--- NOTE | 2018-06-08 08:48 | PN ---
Date/Time of Note Date/Time of Note DATE: 06/08/18 TIME: 08:48 Assessment/Plan VTE Prophylaxis Risk score (from Ns)>0 risk: 4 SCD applied (from Ns): No SCD contraindicated: low risk/ambulating Pharmacological prophylaxis: NA/contraindicated Pharm contraindication: low risk/ambulating Lines/Catheters IV C[facility]ter [facility]from [facility] Saline Lock Urinary Cath still in place: No Assessment/Plan Assessment/Plan 1. Cardiopulmonary arrest s/p V. fib arrest - Most likely secondary to meth use - Cardiology on board and appreciate recommendations. Patient agreeable to cardiac cath and scheduled today for 1:30pm - CT head negative, CTA of the chest showing some edema, likely secondary to above cardiopulmonary arrest 2. Severe CM - Cardiology on board and will continue current treatment - counseled about the importance of abstaining from meth use. Likely congestive heart failure - ECHO results noted 3. Anemia - will check iron levels 4. h/o substance abuse - Utox results noted 5. Acute systolic and diastolic heart failure - CTA with pulm edema and BNP elevation noted - ECHO results with EF 15% - will need defibrillator prior to d/c if no CAD. If present, will need lifevest for 3 months given h/o VFib arrest and low EF 6. Disposition - Patient agreeable to cardiac cath which will be performed this afternoon Result Diagram: 06/08/18 0513 06/08/18 0513 Results 24hrs Laboratory Tests Test 06/08/18 05:13 White Blood Count 7.8 # Red Blood Count 4.37 L Hemoglobin 10.4 L Hematocrit 32.9 L Mean Corpuscular Volume 75.3 L Mean Corpuscular Hemoglobin 23.8 L Mean Corpuscular Hemoglobin Concent 31.6 L Red Cell Distribution Width 17.4 H Platelet Count 243 Mean Platelet Volume 8.7 Immature Granulocytes % 0.300 Neutrophils % 68.1 Lymphocytes % 21.6 Monocytes % 6.8 Eosinophils % 2.4 Basophils % 0.8 Nucleated Red Blood Cells % 0.0 Immature Granulocytes # 0.020 Neutrophils # 5.3 Lymphocytes # 1.7 Monocytes # 0.5 Eosinophils # 0.2 Basophils # 0.1 Nucleated Red Blood Cells # 0.0 Prothrombin Time 16.2 H Prothrombin Time Ratio 1.3 INR International Normalized Ratio 1.29 Sodium Level 136 Potassium Level 4.6 Chloride Level 104 Carbon Dioxide Level 22 Anion Gap 10 Blood Urea Nitrogen 21 H Creatinine 1.13 Est Glomerular Filtrat Rate mL/min > 60 Glucose Level 95 Calcium Level 8.7 Phosphorus Level 3.2 Magnesium Level 1.9 Total Bilirubin 3.0 H Direct Bilirubin 0.00 Indirect Bilirubin 3.0 H Aspartate Amino Transf (AST/SGOT) 86 H Alanine Aminotransferase (ALT/SGPT) 130 H Alkaline Phosphatase 100 Total Protein 6.4 Albumin 3.4 Globulin 3.00 Albumin/Globulin Ratio 1.13 Subjective 24 Hr Interval Summary Free Text/Dictation Patient states he was hungry this morning after not being fed for the past couple days. He wanted water and something to eat which was why he tried to leave. Brothers at bedside and discussion held about plan of care. Patient agreeable to cardiac cath today and assured will be able to eat after procedure. Admits to shortness of breath but no chest pain. Exam/Review of Systems Exam Vitals Vital Signs Date Temp Pulse Resp B/P (MAP) Pulse Ox O2 O2 Flow FiO2 Time Delivery Rate 06/08/18 97.5 90 20 133/94 95 07:17 (107) 06/08/18 Nasal 00:00 Cannula 06/05/18 2.0 17:00 Intake and Output 06/07/18 06/07/18 06/08/18 1515:00 23:00 07:00 IntakeIntake Total 100 ml 500 ml BalanceBalance 100 ml 500 ml Exam General: Patient is laying in bed. no acute distress. pale complexion Neck: Supple, nontender, midline Respiratory: Clear to auscultation bilaterally. no wheezing or rhonchi Cardiovascular: regular rhythm and rate, no obvious murmurs Gastrointestinal: non-tender to palpation, bowel sounds heard. Neurological: Moves all extremities spontaneously Skin: No new skin lesions Results Results 24hrs Laboratory Tests Test 06/08/18 05:13 White Blood Count 7.8 # Red Blood Count 4.37 L Hemoglobin 10.4 L Hematocrit 32.9 L Mean Corpuscular Volume 75.3 L Mean Corpuscular Hemoglobin 23.8 L Mean Corpuscular Hemoglobin Concent 31.6 L Red Cell Distribution Width 17.4 H Platelet Count 243 Mean Platelet Volume 8.7 Immature Granulocytes % 0.300 Neutrophils % 68.1 Lymphocytes % 21.6 Monocytes % 6.8 Eosinophils % 2.4 Basophils % 0.8 Nucleated Red Blood Cells % 0.0 Immature Granulocytes # 0.020 Neutrophils # 5.3 Lymphocytes # 1.7 Monocytes # 0.5 Eosinophils # 0.2 Basophils # 0.1 Nucleated Red Blood Cells # 0.0 Prothrombin Time 16.2 H Prothrombin Time Ratio 1.3 INR International Normalized Ratio 1.29 Sodium Level 136 Potassium Level 4.6 Chloride Level 104 Carbon Dioxide Level 22 Anion Gap 10 Blood Urea Nitrogen 21 H Creatinine 1.13 Est Glomerular Filtrat Rate mL/min > 60 Glucose Level 95 Calcium Level 8.7 Phosphorus Level 3.2 Magnesium Level 1.9 Total Bilirubin 3.0 H Direct Bilirubin 0.00 Indirect Bilirubin 3.0 H Aspartate Amino Transf (AST/SGOT) 86 H Alanine Aminotransferase (ALT/SGPT) 130 H Alkaline Phosphatase 100 Total Protein 6.4 Albumin 3.4 Globulin 3.00 Albumin/Globulin Ratio 1.13 Medications Medication Current Medications Sodium Chloride 1,000 ml @ 40 mls/hr Q24H IV Last administered on 06/06/18at 15:52; Admin Dose 40 MLS/HR; Start 06/05/18 at 10:58 IV Flush (NS 3 ml) 3 ml PER PROTOCOL IV ; Start 06/05/18 at 11:00 Lorazepam (Ativan) 0.5 mg Q6H PRN IV .ANXIETY Last administered on 06/07/18at 09:29; Admin Dose 0.5 MG; Start 06/05/18 at 11:00 Ondansetron HCl (Zofran Inj) 4 mg Q6H PRN IV NAUSEA/VOMITING; Start 06/05/18 at 11:00 Nitroglycerin (Nitroglycerin (Sl Tab) 0.4 Mg) 1 tab Q5M PRN SL .CHEST PAIN; Start 06/05/18 at 11:00 Acetaminophen (Tylenol Tab) 650 mg Q6H PRN PO .PAIN 1-3 OR TEMP; Start 06/05/18 at 11:00 Acetaminophen/ Hydrocodone Bitart ([place] (5/325)) 1 tab Q6H PRN PO .PAIN 4-6 Last administered on 06/08/18at 02:13; Admin Dose 1 TAB; Start 06/05/18 at 11:00 Aspirin (Aspirin) 81 mg DAILY PO Last administered on 06/07/18at 09:05; Admin Dose 81 MG; Start 06/06/18 at 09:00 Atorvastatin Calcium (Lipitor) 80 mg HS PO Last administered on 06/07/18at 21:00; Admin Dose 80 MG; Start 06/05/18 at 21:00 Digoxin (Digoxin) 0.125 mg DAILY@13 PO Last administered on 06/07/18at 13:25; Admin Dose 0.125 MG; Start 06/07/18 at 13:00 Pantoprazole (Protonix Tab) 40 mg DAILY@06 PO Last administered on 06/08/18at 06:49; Admin Dose 40 MG; Start 06/07/18 at 06:00 Morphine Sulfate (morphine) 6 mg Q4H PRN PO .PAIN 7-10; Start 06/06/18 at 16:00 Carvedilol (Coreg) 6.25 mg BID PO Last administered on 06/07/18at 21:00; Admin Dose 6.25 MG; Start 06/07/18 at 21:00 ESTHER TABARES MD Jun 08, 2018 08:48
[2018-06-08] MEDS: SOD CHLORIDE 0.9% 1,000 ML IV SCH ×3 (10:58→18:50)
[2018-06-08] MEDS: ASPIRIN 81 MG TAB PO SCH (11:28)
[2018-06-08] MEDS ORDERED: LIDOCAINE 1% (MDV) 20 ML INJ ONE (14:32)
[2018-06-08] MEDS ORDERED: HEPARIN 1000 UNITS/ML 10 ML INJ ONE (14:32)
[2018-06-08] MEDS ORDERED: IODIXANOL LOCM 100 ML BTL ONE (14:32)
[2018-06-08] MEDS ORDERED: VERAPAMIL 5 MG INJ ONE (14:32)
[2018-06-08] MEDS ORDERED: NITROGLYCERIN (IC) 100 MCG/ML INJ ONE (14:32)
[2018-06-08] MEDS ORDERED: FENTAnyl 50 MCG/ML VIAL ONE (15:15)
--- NOTE | 2018-06-08 15:36 | OPR ---
Date/Time of Note Date/Time of Note DATE: 06/08/18 TIME: 15:33 Operative Report Procedure Date: Jun 08, 2018 Preoperative Diagnosis VT arrest Postoperative Diagnosis same Operation/Procedure Performed [facility] Surgeon see signature line Transformer Coil Winder N/A Anesthesia Type: moderate sedation Estimated Blood Loss: minimal Transfusion none Specimen none Grafts/Implants none Complications none Procedure Description Cost Control Supervisor: Jarek Mejia MD Indication: Severe cardiomyopathy, V. tach cardiac arrest rule out coronary artery disease Procure performed: #1 left heart catheterization and selective right and left coronary angiogram using left radiall approach. #2 Moderate sedation for more than 30 minutes Findings: 1. Left main: is normal and birfurcates to LAD & LCX. 2. LAD: has no significant% stenosis at proximal or mid LAD. Diagonal is large with about 40% ostial stenosis 3. Left circumflex artery: is nondominant. it has no significant stenosis 4. RCA: is dominant. it has no significant stenosis 5. Ramus intermedius moderate size vessel with about 40% stenosis 6. LVEDP is 29 with no significant gradient across the aortic Procedure in detail: Written informed consent with obtained after risks benefits and alternatives discussed with the patient in detail. risks including but not limited to risk of infection vascular complications, bleeding complications, CT stroke arrhythmia renal failure at even were discussed with the patient in detail. Patient was brought into the cardiac veterinary laboratory technician and placed in supine position. Radial area was prepped and draped in regular sterile fashion and then he was in anesthetized using 1% lidocaine. radial artery was cannulated and using modified seldinger technique a 6 Hungarian sheath was placed in the radial artery. JR4 catheter was advanced and engaged into the right coronary artery and angiographic view was obtained. Then a JL3.5 catheter was advanced and engaged into the left main coronary artery and angiographic view was obtained. Then a pigtail was advanced to engage the left ventricle hemodynamics as recorded by pullback aortic pressure was measured. Patient tolerated the procedure well with no complication. contrast used: 25CC visipaque Conclusions: Mild coronary artery disease Recommendations: Aggressive medical therapy. ICD for secondary prevention of sudden cardiac prior to discharge JAREK MEJIA MD [facility] JAREK MEJIA MD Jun 08, 2018 15:36
--- NOTE | 2018-06-08 16:09 | CONS ---
Consult Date/Type/Reason Admit Date/Time Jun 05, 2018 at 11:05 Initial Consult Date 06/05/18 Type of Consultation: CV Requesting Provider: COLLETTE SHERMAN MD Date/Time of Note DATE: 06/08/18 TIME: 16:06 Subjective Interventional cardiology follow-up progress note Subjective: Case discussed with the staff. Discussed with the patient brothers at the [facility]. Telemetry was reviewed. Patient has been remained in sinus rhythm Patient also has been intermittently agitated and has leave AMA but changed his mind and came back. He has chest wall tenderness on palpation still but much improved He had finally agreed to undergo coronary angiography which was done on 06/08/2018 which showed no significant obstructive coronary artery disease Objective: General: no acute distress HEENT: NC/AT. pupils are equal. round. NECK: NO JVD. no stridor. CV: RRR. systolic murmur; no gallop or rubs. PULM: no wheezing or rhonchi. Chest: Positive reproducible chest wall tenderness GI: SOFT, NT, ND, no rebound or guarding Extremity: trace B/L LE edema. no clubbing. neuro: awake and alert Psych: Easily agitated. rectal: deferred Echocardiogram was personally reviewed which shows: Normal left ventricular wall thickness. Severe enlargement of left ventricle cavity. Severe left ventricular systolic dysfunction. Ejection fraction is visually estimated at 15 %. Tissue Doppler/Mitral Doppler indices are consistent with restrictive physiology with markedly elevated left atrial pressure (Stage III-IV diastolic dysfunction). E/E'= 30. There is mild enlargement of left atrium. LA Volume Index= 45. Mitral valve leaflets appear mildly thickened. Mild to moderate mitral valve regurgitation. No significant aortic stenosis or insufficiency. Normal trileaflet aortic valve structure. Aortic cusps appear mildly calcified. Normal appearance of the tricuspid valve. Estimated peak PA systolic pressure 51 mmHg. There is mild to moderate tricuspid regurgitation. Objective Vitals Vital Signs Date Temp Pulse Resp B/P (MAP) Pulse Ox O2 O2 Flow FiO2 Time Delivery Rate 06/08/18 90 12:23 06/08/18 97.7 20 137/100 92 11:18 (112) 06/08/18 Nasal 00:00 Cannula 06/05/18 2.0 17:00 Intake and Output 06/07/18 06/07/18 06/08/18 1515:00 23:00 07:00 IntakeIntake Total 100 ml 500 ml BalanceBalance 100 ml 500 ml Results/Medications Result Diagram: 06/08/1813 06/08/1813 Results 24 hrs Laboratory Tests Test 06/08/18 05:13 White Blood Count 7.8 # Red Blood Count 4.37 L Hemoglobin 10.4 L Hematocrit 32.9 L Mean Corpuscular Volume 75.3 L Mean Corpuscular Hemoglobin 23.8 L Mean Corpuscular Hemoglobin Concent 31.6 L Red Cell Distribution Width 17.4 H Platelet Count 243 Mean Platelet Volume 8.7 Immature Granulocytes % 0.300 Neutrophils % 68.1 Lymphocytes % 21.6 Monocytes % 6.8 Eosinophils % 2.4 Basophils % 0.8 Nucleated Red Blood Cells % 0.0 Immature Granulocytes # 0.020 Neutrophils # 5.3 Lymphocytes # 1.7 Monocytes # 0.5 Eosinophils # 0.2 Basophils # 0.1 Nucleated Red Blood Cells # 0.0 Prothrombin Time 16.2 H Prothrombin Time Ratio 1.3 INR International Normalized Ratio 1.29 Sodium Level 136 Potassium Level 4.6 Chloride Level 104 Carbon Dioxide Level 22 Anion Gap 10 Blood Urea Nitrogen 21 H Creatinine 1.13 Est Glomerular Filtrat Rate mL/min > 60 Glucose Level 95 Calcium Level 8.7 Phosphorus Level 3.2 Magnesium Level 1.9 Iron Level 19 L Total Iron Binding Capacity 411 Percent Iron Saturation 5 L Total Bilirubin 3.0 H Direct Bilirubin 0.00 Indirect Bilirubin 3.0 H Aspartate Amino Transf (AST/SGOT) 86 H Alanine Aminotransferase (ALT/SGPT) 130 H Alkaline Phosphatase 100 Total Protein 6.4 Albumin 3.4 Globulin 3.00 Albumin/Globulin Ratio 1.13 Home Meds Reported Medications Furosemide* (Furosemide*) 40 Mg Tablet, 40 MG PO DAILY, TAB 06/05/18 Aspirin* (Aspirin* EC) 81 Mg Tablet.dr, 81 MG PO DAILY, TAB 06/05/18 Spironolactone* (Aldactone*) 25 Mg Tablet, 25 MG PO DAILY, #30 TAB 06/05/18 Lisinopril* (Lisinopril*) 10 Mg Tablet, 10 MG PO DAILY, #30 TAB 06/05/18 Medications Current Medications Sodium Chloride 1,000 ml @ 40 mls/hr Q24H IV Last administered on 06/06/18at 15:52; Admin Dose 40 MLS/HR; Start 06/05/18 at 10:58 IV Flush (NS 3 ml) 3 ml PER PROTOCOL IV ; Start 06/05/18 at 11:00 Lorazepam (Ativan) 0.5 mg Q6H PRN IV .ANXIETY Last administered on 06/07/18at 09:29; Admin Dose 0.5 MG; Start 06/05/18 at 11:00 Ondansetron HCl (Zofran Inj) 4 mg Q6H PRN IV NAUSEA/VOMITING; Start 06/05/18 at 11:00 Nitroglycerin (Nitroglycerin (Sl Tab) 0.4 Mg) 1 tab Q5M PRN SL .CHEST PAIN; Start 06/05/18 at 11:00 Acetaminophen (Tylenol Tab) 650 mg Q6H PRN PO .PAIN 1-3 OR TEMP; Start 06/05/18 at 11:00 Acetaminophen/ Hydrocodone Bitart ([place] (5/325)) 1 tab Q6H PRN PO .PAIN 4-6 Last administered on 06/08/18at 02:13; Admin Dose 1 TAB; Start 06/05/18 at 11:00 Aspirin (Aspirin) 81 mg DAILY PO Last administered on 06/08/18 11:28; Admin Dose 81 MG; Start 06/06/18 at 09:00 Atorvastatin Calcium (Lipitor) 80 mg HS PO Last administered on 06/07/18at 21:00; Admin Dose 80 MG; Start 06/05/18 at 21:00 Digoxin (Digoxin) 0.125 mg DAILY@13 PO Last administered on 06/07/18 13:25; Admin Dose 0.125 MG; Start 06/07/18 at 13:00 Pantoprazole (Protonix Tab) 40 mg DAILY@06 PO Last administered on 06/08/18 06:49; Admin Dose 40 MG; Start 06/07/18 at 06:00 Morphine Sulfate (morphine) 6 mg Q4H PRN PO .PAIN 7-10; Start 06/06/18 at 16:00 Carvedilol (Coreg) 6.25 mg BID PO Last administered on 06/08/18 11:29; Admin Dose 6.25 MG; Start 06/07/18 at 21:00 Assessment/Plan Hospital Course (Demo Recall) 1. Status post cardiac arrest. 2. Ventricular fibrillation, status post cardioversion. 3. Severe cardiomyopathy. 4. History of drug use. 5. Smoker. 6. History of noncompliance. 7. Prolonged QT on the EKG. RECOMMENDATIONS: Electrolytes including potassium and magnesium will be replaced as needed. Try to keep the potassium more than 4 and magnesium more than 2. Continue with digoxin Continue with an increase carvedilol as tolerated increased. Will DC statin and aspirin now that he has no significant obstructive coronary artery disease I have had a very lengthy discussion with the patient as well as his 2 brothers. His 2 brothers appeared to be very understanding. I have explained to them that my recommendations are for the patient to get ICD to prevent second cardiac . the patient also further needs to completely stay away from drugs and smoking and has to be using medication on a regular basis. The patient has consented to procedure now although intermittently previously has changed his mind. Patient has been scheduled for ICD placement tomorrow morning. Thank you for his referral. We will continue to follow along with you ALEX OLSEN MD [facility] ALEX OLSEN MD Jun 08, 2018 16:08
[2018-06-08] MEDS: LORAZEPAM 2 MG INJ IV PRN (16:32)
[2018-06-08] MEDS: DIGOXIN 0.125 MG TAB PO SCH (18:50)
[2018-06-08] MEDS: ATORVASTATIN 80 MG TAB PO SCH (20:56)
[2018-06-08] MEDS ORDERED: SOD CHLORIDE 0.9% 1,000 ML IV SCH (22:00)
[2018-06-09 04:00] VITALS: PULSE 83
[2018-06-09 04:05] VITALS: BP 105/77; PULSE 87; RESP 20
[2018-06-09] MEDS: PANTOPRAZOLE (EC) 40 MG TAB PO SCH (05:59)
--- NOTE | 2018-06-09 12:30 | DS ---
Date/Time of Note Date/Time of Note DATE: 06/09/18 TIME: 12:27 Discharge Summary Admission/Discharge Info Admit Date/Time Jun 05, 2018 at 11:05 Discharge Date/Time Jun 09, 2018 at 06:50 Discharge Diagnosis 1. Cardiopulmonary arrest s/p V. fib arrest 2. Severe CM 3. Anemia 4. h/o substance abuse 5. Acute systolic and diastolic heart failure Patient Condition: Stable Consults Cardiology- Dr. 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 fib arrest by paramedics in the field. According to bystanders from EMS patient was going to work and as he was walking from his car to the shop he suddenly passed out. EMS approached patient and although was thought to be pulseless, after the pads were attached was found to be in V. fib arrest and patient was immediately shocked. Patient received quality CPR throughout this time. Patient was a bit groggy in the ambulance and when he arrived to the hospital he spontaneously instantly woke up alert and oriented and the first things that he said was "what happened to me, was shot or stabbed?". Currently patient is very sleepy and is snoring however is easily aroused. Patient does admit to using meth last night however states he has not been using it on a routine basis as he was previous he told of his failing heart due to meth use. Patient denies using any other illicit substances at this time. Patient currently denies chest pain although when he arrived he was given pain medication due to intense pain in the chest. Patient denies any discomfort in the abdomen, nausea, vomiting, headache, leg pain. Hospital Course Patient was admitted and evaluated by cardiology who recommended LHC and defibrillator placement given EF findings of 15% as well as episode of Vfib arrest. Patient was noncompliant during hospitalization with keeping tele monitoring on and maintaining NPO status. He tried to elope once but returned to his room. He agreed to cardiac catheterization and plans were made for AICD placement but patient left AGAINST MEDICAL ADVICE prior to the procedure. Home Meds Reported Medications Furosemide* (Furosemide*) 40 Mg Tablet, 40 MG PO DAILY, TAB 06/05/18 Aspirin* (Aspirin* EC) 81 Mg Tablet.dr, 81 MG PO DAILY, TAB 06/05/18 Spironolactone* (Aldactone*) 25 Mg Tablet, 25 MG PO DAILY, #30 TAB 06/05/18 Lisinopril* (Lisinopril*) 10 Mg Tablet, 10 MG PO DAILY, #30 TAB 06/05/18 Primary Care Provider [facility] Time spent on discharge: < 30 minutes Pending Labs Laboratory Tests Test 06/09/18 12:20 White Blood Count Pending Red Blood Count Pending Hemoglobin Pending Hematocrit Pending Mean Corpuscular Volume Pending Mean Corpuscular Hemoglobin Pending Mean Corpuscular Hemoglobin Concent Pending Red Cell Distribution Width Pending Platelet Count Pending Mean Platelet Volume Pending ESTHER TABARES MD Jun 09, 2018 12:30
== END 2018-06-09 06:50 | disposition left against medical advice (07) | DRG 280 ==
LOC: E/R 07:58 → ICU 11:05 → 6WM 06-06 17:44 → UNDODISIN 06-08 09:57
PROVIDERS: ADMIT Internal Medicine; ATTEND Internal Medicine
PROC: B211YZZ Fluoroscopy of Multiple Coronary Arteries using Other Contrast (ICD-10-PCS; 2018-06-08)
PROC: B215YZZ Fluoroscopy of Left Heart using Other Contrast (ICD-10-PCS; 2018-06-08)
PROC: 4A023N7 Measurement of Cardiac Sampling and Pressure, Left Heart, Percutaneous Approach (ICD-10-PCS; principal; 2018-06-08 13:30)
DX: I49.01 Ventricular fibrillation (principal); I21.4 Non-ST elevation (NSTEMI) myocardial infarction; I50.41 Acute combined systolic (congestive) and diastolic (congestive) heart failure; I46.2 Cardiac arrest due to underlying cardiac condition; I11.0 Hypertensive heart disease with heart failure; I42.9 Cardiomyopathy, unspecified; I45.81 Long QT syndrome; I25.10 Atherosclerotic heart disease of native coronary artery without angina pectoris; D64.9 Anemia, unspecified; F17.210 Nicotine dependence, cigarettes, uncomplicated; F15.10 Other stimulant abuse, uncomplicated; Z79.82 Long term (current) use of aspirin; Z91.14 Patient's other noncompliance with medication regimen; Z53.21 Procedure and treatment not carried out due to patient leaving prior to being seen by health care provider
CPT/HCPCS: 36600; 70450; 71045; 71275; 80048; 80053; 80061; 80069; 80307; 81001; 82140; 82550; 82553; 82803; 82962; 83036; 83540; 83605; 83735; 83880; 84100; 84436; 84443; 84479; 84484; 85025; 85378; 85610; 85730; 87081; 87086; 93005; 93306; 93458; 96361; 96365; 96375; C1887; C9113; J0282; J0692; J1644; J2060; J3010; J3370; J3475; J3480; J7030; Q9967

== ENCOUNTER 2018-06-09 08:09 | Emergency (ER) | payer OTHER ==
[~2018-06-09] VITALS: Ht 167.6 cm; Wt 65.0 kg
[~2018-06-09 08:09] MED LIST: ASPI-817 PO; FURO40TA4 PO; LISI10TA2 PO; SPIR25TA PO
[2018-06-09 08:15] VITALS: Ht 167.6 cm; Wt 65.0 kg
--- NOTE | 2018-06-09 08:26 | ERD ---
ER Documentation Chief Complaint Chief Complaint CODE GREEN: PT C/O DIZZINESS. PT TO HAVE AICD PLACEMENT TODAY AMJessica'Christina HPI 42-year-old male presents the emergency department from the [facility] for shortness of breath. Patient was recently admitted after a return of spontaneous circulation after a V. fib arrest. He underwent an angiogram yesterday that demonstrated nonocclusive disease but was noted to have a significant cardiomyopathy. He was scheduled for an AICD placement today but signed out AGAINST MEDICAL ADVICE. He made it as far as the [facility] when he began having shortness of breath and was brought back to the emergency department. He has no new symptoms at this time including no loss of consciousness, chest pain. ROS All systems reviewed and are negative except as per history of present illness. Medications Home Meds Reported Medications Furosemide* (Furosemide*) 40 Mg Tablet, 40 MG PO DAILY, TAB 06/05/18 Aspirin* (Aspirin* EC) 81 Mg Tablet.dr, 81 MG PO DAILY, TAB 06/05/18 Spironolactone* (Aldactone*) 25 Mg Tablet, 25 MG PO DAILY, #30 TAB 06/05/18 Lisinopril* (Lisinopril*) 10 Mg Tablet, 10 MG PO DAILY, #30 TAB 06/05/18 Allergies Allergies: Coded Allergies: No Known Allergy (Unverified , 06/05/18) PMhx/Soc History of Surgery: No Anesthesia Reaction: No (UNK) Hx Neurological Disorder: No Hx Respiratory Disorders: No Hx Cardiac Disorders: Yes (CHF, ARRYTHMIA) Hx Psychiatric Problems: No Hx Miscellaneous Medical Probl: Yes (HTN) Hx Alcohol Use: No Hx Substance Use: Yes (METH, MARIJUANA) Hx Tobacco Use: Yes (1 DAY) Physical Exam Vitals Vital Signs Date Temp Pulse Resp B/P (MAP) Pulse Ox O2 O2 Flow FiO2 Time Delivery Rate 06/09/18 97.5 89 17 139/113 97 08:15 (122) Physical Exam GENERAL: Pale ill-appearing male HEENT: Pupils equal, round, and reactive to light. EOMI. There is no scleral icterus. NECK: C-spine is soft and supple, there is no meningismus. There is no cervical lymphadenopathy. LUNGS: Clear to auscultation bilaterally. There are no rales, wheezes or rhonchi. HEART: Regular rate and rhythm, no murmurs, clicks, rubs or gallops. ABDOMEN: Soft, non-tender, non-distended. There are bowel sounds in all four quadrants. No rebound or guarding. EXTREMITIES: There is no peripheral cyanosis or edema. No focal swelling or erythema. NEURO: The patient moves all four extremities with 5/5 strength. Cranial nerves II - XII are intact. Normal gait. Alert and oriented SKIN: There is no apparent rash or petechiae. HEME/LYMPHATIC: There is no evidence of excessive bruising or lymphedema. PSYCHIATRIC: The patient does not appear anxious or depressed. Procedures/MDM Patient was taken to a room, seen and evaluated. Comfort measures were initiated. Diagnostic tests were ordered and reviewed. 3 LEAD RHYTHM STRIP: Normal sinus rhythm without ectopy EK lead EKG reviewed by myself: Normal Sinus Rhythm Nonspecific interventricular conduction delay ST depressions and T wave inversions in the lateral leads, no ST elevation Impression: Abnormal EKG RADIOLOGY: Reviewed with the radiologist CONSULTATION: Hospitalist was notified for admission. Dr. Mejia was notified. REEVALUATION: 0825: Records from the hospital were reviewed and patient was readmitted MEDICAL DECISION MAKIN-year-old male with a history of a previous V. fib arrest presents to the emergency department after leaving AGAINST MEDICAL ADVICE. At this time, his disease is known based on his recent angiogram and echocardiogram. Patient will be brought back upstairs having rescinded his AMA to continue his treatment. Departure Diagnosis: Primary Impression: Cardiomyopathy Condition: SARAH Leal Jun 09, 2018 08:26
[2018-06-09] MEDS ORDERED: DEXTROSE 5%-0.45% NACL 1,000 ML IV SCH (08:29)
[2018-06-09] MEDS ORDERED: MAGNESIUM HYDROXIDE 30ML CUP PO PRN (08:30)
[2018-06-09] MEDS ORDERED: NACL 0.9% 3 ML SYG IV SCH (08:30)
[2018-06-09] MEDS ORDERED: DOCUSATE SODIUM 100 MG CAP PO PRN (08:30)
[2018-06-09] MEDS ORDERED: ACETAMINOPHEN 325 MG TAB PO PRN (08:30)
[2018-06-09] MEDS ORDERED: ONDANSETRON 4 MG INJ IV PRN (08:30)
--- NOTE | 2018-06-09 08:35 | HP ---
Date/Time of Note Date/Time of Note DATE: 06/09/18 TIME: 08:35 Assessment/Plan VTE Prophylaxis SCD applied (from Nsg): Yes Pharmacological prophylaxis: other Assessment/Plan Assessment/Plan 1. Severe Cardiomyopathy - Cardiology on board with plans for pacer placement on Thursday - continue current medications. d/c aspirin and statin given no CAD found on PCI - ECHO results noted 2. H/o Cardiopulmonary arrest s/p V. fib arrest - Plans for AICD placement on thursday - continue digoxin and carvedilol - Most likely secondary to meth use - Cardiology on board and appreciate recommendations 3. Anemia - will need PO replacement upon discharge 4. h/o substance abuse 5. Acute systolic and diastolic heart failure - ECHO results with EF 15% 6. tobacco abuse 7. Diet - Cardiac 8. Disposition - Admit to telemetry with close monitoring pending AICD placement on Thursday HPI/ROS Admit Date/Time Admit Date/Time 06/09/18 0835 Hx of Present Illness 42 yo M with recent hospitalization following Vfib arrest and PCI left the hospital this am AGAINST MEDICAL ADVICE but did not make it farther than the front door. Yemi Helms was called and patient was taken to ED for evaluation of shortness of breath and dizziness. When discussed reason for leaving, he stated that he was just getting frustrated since was being kept NPO. Discussed need for AICD placement which he was agreeable to and stated he was not going to leave again. Patient admitted to shortness of breath, thirst, and hunger, but denies any LOC, chest pain, palpitations, nausea, vomiting, abdominal issues or urinary issues. ROS Constitutional: No fatigue, No nausea Eyes: No discharge ENT: No congestion Respiratory: shortness of breath; No cough, No wheezing Cardiovascular: lightheadedness; No chest pain, No palpitations Gastrointestinal: No pain, No constipation, No diarrhea, No nausea, No vomiting Genitourinary: No bleeding, No discharge, No flank pain Musculoskeletal: No back pain Skin: no complaints Neurologic: no complaints Endocrine: no complaints Lymphatic: no complaints Psychological: nl mood/affect Immunologic: no complaints PMH/Family/Social Past Medical History Medical History: congestive heart failure, other (anemia) Medications Current Medications Aspirin (Halfprin) 81 mg DAILY PO ; Start 06/09/18 at 09:00 Furosemide (Lasix) 40 mg DAILY PO ; Start 06/09/18 at 09:00 Lisinopril (Zestril) 10 mg DAILY PO ; Start 06/09/18 at 09:00 Spironolactone (Aldactone) 25 mg DAILY PO ; Start 06/09/18 at 09:00 Dextrose/Sodium Chloride 1,000 ml @ 40 mls/hr Q24H IV ; Start 06/09/18 at 08:29 IV Flush (NS 3 ml) 3 ml PER PROTOCOL IV ; Start 06/09/18 at 08:30 Ondansetron HCl (Zofran Inj) 4 mg Q6H PRN IV NAUSEA/VOMITING; Start 06/09/18 at 08:30 Acetaminophen (Tylenol Tab) 650 mg Q6H PRN PO .PAIN 1-3 OR TEMP; Start 06/09/18 at 08:30 Docusate Sodium (Colace) 100 mg Q12H PRN PO .CONSTIPATION; Start 06/09/18 at 08:30 Magnesium Hydroxide (Milk Of Mag) 30 ml DAILY PRN PO .CONSTIPATION; Start 06/09/18 at 08:30 Pantoprazole (Protonix Tab) 40 mg DAILY@06 PO ; Start 06/10/18 at 06:00 Coded Allergies: No Known Allergy (Unverified , 06/09/18) Past Surgical History Past Surgical Hx: other (PCI) Family History Significant Family History: no pertinent family hx Social History Alcohol Use: other Smoking Status: Current every day smoker Drug Use: other (meth use) Exam/Review of Systems Vital Signs Vitals Vital Signs Date Temp Pulse Resp B/P (MAP) Pulse Ox O2 O2 Flow FiO2 Time Delivery Rate 06/09/18 97.5 89 17 139/113 97 08:15 (122) Exam Exam General: Patient is laying in bed and answers questions appropriately Mentation: Patient is alert and oriented 4 Head: Normocephalic atraumatic Eyes: EOMI, pupils reactive to light Neck: Supple, nontender, midline Respiratory: Clear to auscultation bilaterally Cardiovascular: regular rate and rhythm,, no obvious murmurs Gastrointestinal: soft, non-tender to palpation, bowel sounds heard. Neurological: Moves all extremities spontaneously Skin: No new skin lesions. pale complexion Additional Comments Home medications reviewed ESTHER TABARES MD Jun 09, 2018 08:35
[2018-06-09] MEDS ORDERED: SPIRONOLACTONE 25 MG TAB PO SCH (09:00)
[2018-06-09] MEDS ORDERED: FUROSEMIDE 40 MG TAB PO SCH (09:00)
[2018-06-09] MEDS ORDERED: morphine 2 MG INJ IV PRN (09:00)
[2018-06-09] MEDS ORDERED: HYDROCODONE/APAP (5/325) TAB PO PRN (09:00)
[2018-06-09] MEDS ORDERED: LORAZEPAM 2 MG INJ IV PRN (09:00)
[2018-06-09] MEDS ORDERED: ASPIRIN (EC) 81 MG TAB PO SCH (09:00)
[2018-06-09] MEDS ORDERED: LISINOPRIL 10 MG TAB PO SCH (09:00)
--- NOTE | 2018-06-09 10:21 | CONS ---
Assessment/Plan Assessment/Plan Hospital Course (Demo Recall) 1. Status post cardiac arrest. 2. Ventricular fibrillation, status post cardioversion. 3. Severe nonischemic cardiomyopathy. 4. History of drug use. 5. Smoker. 6. History of noncompliance. 7. Prolonged QT on the EKG. 8. Congestive heart failure acute on chronic secondary to systolic heart failure RECOMMENDATIONS: Electrolytes including potassium and magnesium will be replaced as needed. Try to keep the potassium more than 4 and magnesium more than 2. Continue with digoxin carvedilol OFF statin and aspirin now that he has no significant obstructive coronary artery disease I have had a very lengthy discussion with the patient as well as his 2 brothers. His 2 brothers appeared to be very understanding. I have explained to them that my recommendations are for the patient to get ICD to prevent second cardiac . the patient also further needs to completely stay away from drugs and smoking and has to be using medication on a regular basis. The patient has consented to procedure now although intermittently previously has changed his mind and this morning he had signed out against AMA again patient has been scheduled for ICD placement once he consents Thank you for his referral. We will continue to follow along with you ALEX OLSEN MD [facility] Consultation Date/Type/Reason Admit Date/Time 06/09/18 0835 Date of Consultation: Jun 09, 2018 Type of Consult Cardiology Reason for Consultation CHF cardiomyopathy Requesting Provider: ESTHER TABARES MD Date/Time of Note DATE: 06/09/18 TIME: 10:12 Hx of Present Illness interventional cardiology consultation note Chief complaint: Weakness shortness of breath diaphoresis Reason for consult: History of V. fib cardiac arrest History of present illness: Thank you for this referral. History was obtained partially from the patient who is a poor historian. From discussion with physician staff including ER physicians and from the review of the old chart. Patient also very well-known to me since he just left the hospital AMA AGAINST MEDICAL ADVICE This is a 42-year-old male with past medical history significant for congestive heart failure , meth use , with recent V. fib cardiopulmonary arrest found to be in V. fib arrest who was admitted to the hospital over the past week after his V. fib arrest. Patient is stabilized workup included coronary angiography which was done yesterday by myself which did not show major obstructive coronary artery disease. Patient has threatened multiple times to sign AGAINST MEDICAL ADVICE but his brother have convinced him to come back. This morning he was in fact scheduled to get an ICD. However prior to the ICD he signed out AGAINST MEDICAL ADVICE and left the hospital. Patient could not go very far and in the parking lot he became shortness of breath diaphoretic weak and had to be brought back to the emergency room. Patient mitigated admitted for workup. No V. tach at this point is noted Allergies: No known drug allergies Medications as per medical reconciliation sheet. Patient has been noncompliant at home with his medications Family history: Denies any early coronary artery disease to me Social history: Active smoker. Use drug including meds. Denies heavy alcohol use Past medical history: V. fib cardiac arrest in May 2018 severe nonischemic cardiomyopathy ejection fracture of about 15% Review of system: Patient denies all others except for above-mentioned Past Medical History Home Meds Reported Medications Furosemide* (Furosemide*) 40 Mg Tablet, 40 MG PO DAILY, TAB 06/05/18 Aspirin* (Aspirin* EC) 81 Mg Tablet.dr, 81 MG PO DAILY, TAB 06/05/18 Spironolactone* (Aldactone*) 25 Mg Tablet, 25 MG PO DAILY, #30 TAB 06/05/18 Lisinopril* (Lisinopril*) 10 Mg Tablet, 10 MG PO DAILY, #30 TAB 06/05/18 Medications Current Medications Aspirin (Halfprin) 81 mg DAILY PO Last administered on 06/09/18at 09:52; Admin Dose 81 MG; Start 06/09/18 at 09:00 Furosemide (Lasix) 40 mg DAILY PO Last administered on 06/09/18at 09:52; Admin Dose 40 MG; Start 06/09/18 at 09:00 Lisinopril (Zestril) 10 mg DAILY PO Last administered on 06/09/18at 09:51; Admin Dose 10 MG; Start 06/09/18 at 09:00 Dextrose/Sodium Chloride 1,000 ml @ 40 mls/hr Q24H IV Last administered on 06/09/18at 09:53; Admin Dose 40 MLS/HR; Start 06/09/18 at 08:29 IV Flush (NS 3 ml) 3 ml PER PROTOCOL IV ; Start 06/09/18 at 08:30 Ondansetron HCl (Zofran Inj) 4 mg Q6H PRN IV NAUSEA/VOMITING; Start 06/09/18 at 08:30 Acetaminophen (Tylenol Tab) 650 mg Q6H PRN PO .PAIN 1-3 OR TEMP; Start 06/09/18 at 08:30 Docusate Sodium (Colace) 100 mg Q12H PRN PO .CONSTIPATION; Start 06/09/18 at 08:30 Magnesium Hydroxide (Milk Of Mag) 30 ml DAILY PRN PO .CONSTIPATION; Start 06/09/18 at 08:30 Pantoprazole (Protonix Tab) 40 mg DAILY@06 PO ; Start 06/10/18 at 06:00 Carvedilol (Coreg) 6.25 mg BID PO ; Start 06/09/18 at 09:00; Status UNV Digoxin (Digoxin) 0.125 mg DAILY@13 PO ; Start 06/09/18 at 13:00; Status UNV Atorvastatin Calcium (Lipitor) 80 mg HS PO ; Start 06/09/18 at 21:00; Status UNV Lorazepam (Ativan) 0.5 mg Q6H PRN IV anxiety; Start 06/09/18 at 09:00 Acetaminophen/ Hydrocodone Bitart ([place] (5/325)) 1 tab Q6H PRN PO MODERATE PAIN LEVEL 4-6; Start 06/09/18 at 09:00; Status UNV Morphine Sulfate (morphine) 2 mg Q4H PRN IV SEVERE PAIN LEVEL 7-10; Start 06/09/18 at 09:00 Allergies: Coded Allergies: No Known Allergy (Unverified , 06/09/18) Social History Smoking Status: Current every day smoker Exam/Review of Systems Vital Signs Vitals Vital Signs Date Temp Pulse Resp B/P (MAP) Pulse Ox O2 O2 Flow FiO2 Time Delivery Rate 06/09/18 89 21 135/106 100 Nasal 10:00 (116) Cannula 06/09/18 2.0 09:30 06/09/18 97.5 08:15 Exam Exam General: no acute distress HEENT: NC/AT. pupils are equal. round. NECK: + JVD. no stridor. CV: RRR. systolic murmur; no gallop or rubs. PULM: no wheezing or rhonchi. GI: SOFT, NT, ND, no rebound or guarding Extremity: trace B/L LE edema. no clubbing. neuro: awake and alert, OX3. Psych: Anxious rectal: deferred Medications Medications Current Medications Aspirin (Halfprin) 81 mg DAILY PO Last administered on 06/09/18at 09:52; Admin Dose 81 MG; Start 06/09/18 at 09:00 Furosemide (Lasix) 40 mg DAILY PO Last administered on 06/09/18at 09:52; Admin Dose 40 MG; Start 06/09/18 at 09:00 Lisinopril (Zestril) 10 mg DAILY PO Last administered on 06/09/18at 09:51; Admin Dose 10 MG; Start 06/09/18 at 09:00 Dextrose/Sodium Chloride 1,000 ml @ 40 mls/hr Q24H IV Last administered on 06/09/18at 09:53; Admin Dose 40 MLS/HR; Start 06/09/18 at 08:29 IV Flush (NS 3 ml) 3 ml PER PROTOCOL IV ; Start 06/09/18 at 08:30 Ondansetron HCl (Zofran Inj) 4 mg Q6H PRN IV NAUSEA/VOMITING; Start 06/09/18 at 08:30 Acetaminophen (Tylenol Tab) 650 mg Q6H PRN PO .PAIN 1-3 OR TEMP; Start 06/09/18 at 08:30 Docusate Sodium (Colace) 100 mg Q12H PRN PO .CONSTIPATION; Start 06/09/18 at 08:30 Magnesium Hydroxide (Milk Of Mag) 30 ml DAILY PRN PO .CONSTIPATION; Start 06/09/18 at 08:30 Pantoprazole (Protonix Tab) 40 mg DAILY@06 PO ; Start 06/10/18 at 06:00 Carvedilol (Coreg) 6.25 mg BID PO ; Start 06/09/18 at 09:00; Status UNV Digoxin (Digoxin) 0.125 mg DAILY@13 PO ; Start 06/09/18 at 13:00; Status UNV Atorvastatin Calcium (Lipitor) 80 mg HS PO ; Start 06/09/18 at 21:00; Status UNV Lorazepam (Ativan) 0.5 mg Q6H PRN IV anxiety; Start 06/09/18 at 09:00 Acetaminophen/ Hydrocodone Bitart ([place] (5/325)) 1 tab Q6H PRN PO MODERATE PAIN LEVEL 4-6; Start 06/09/18 at 09:00; Status UNV Morphine Sulfate (morphine) 2 mg Q4H PRN IV SEVERE PAIN LEVEL 7-10; Start 06/09/18 at 09:00 ALEX OLSEN MD Jun 09, 2018 10:21
--- NOTE | 2018-06-09 12:39 | DS ---
Date/Time of Note Date/Time of Note DATE: 06/09/18 TIME: 12:38 Discharge Summary Admission/Discharge Info Admit Date/Time 06/09/18 0830 Discharge Date/Time 06/09/18 1030 AGAINST MEDICAL ADVICE Discharge Diagnosis 1. Severe Cardiomyopathy 2. H/o Cardiopulmonary arrest s/p V. fib arrest 3. Anemia 4. h/o substance abuse 5. Acute systolic and diastolic heart failure 6. tobacco abuse Patient Condition: Stable Consults Cardiology- Dr Mejia Hx of Present Illness 42 yo M with recent hospitalization following Vfib arrest and PCI left the hospital this am AGAINST MEDICAL ADVICE but did not make it farther than the front door. Yemi Scooter was called and patient was taken to ED for evaluation of shortness of breath and dizziness. When discussed reason for leaving, he stated that he was just getting frustrated since was being kept NPO. Discussed need for AICD placement which he was agreeable to and stated he was not going to leave again. Patient admitted to shortness of breath, thirst, and hunger, but denies any LOC, chest pain, palpitations, nausea, vomiting, abdominal issues or urinary issues. Hospital Course Patient left AGAINST MEDICAL ADVICE again following interview. No workup or interventions were performed prior to his leave. Home Meds Reported Medications Furosemide* (Furosemide*) 40 Mg Tablet, 40 MG PO DAILY, TAB 06/05/18 Aspirin* (Aspirin* EC) 81 Mg Tablet., 81 MG PO DAILY, TAB 06/05/18 Spironolactone* (Aldactone*) 25 Mg Tablet, 25 MG PO DAILY, #30 TAB 06/05/18 Lisinopril* (Lisinopril*) 10 Mg Tablet, 10 MG PO DAILY, #30 TAB 06/05/18 Primary Care Provider [facility] Time spent on discharge: < 30 minutes ESTHER TABARES MD Jun 09, 2018 12:39
[2018-06-09] MEDS ORDERED: DIGOXIN 0.125 MG TAB PO SCH (13:00)
[2018-06-09] MEDS ORDERED: ATORVASTATIN 80 MG TAB PO SCH (21:00)
[2018-06-10] MEDS ORDERED: PANTOPRAZOLE (EC) 40 MG TAB PO SCH (06:00)
[2018-06-11] VITALS (9 sets, daily range): BP systolic 101–111; BP diastolic 59–71; PULSE 62–70; RESP 13–22
== END 2018-06-09 12:37 | disposition left against medical advice (07) ==
LOC: E/R 08:09 → CANBEDREQ 20:32
DX: I42.9 Cardiomyopathy, unspecified (principal); I10 Essential (primary) hypertension; I50.9 Heart failure, unspecified; Z79.82 Long term (current) use of aspirin; Z87.891 Personal history of nicotine dependence
CPT/HCPCS: J7042; Z7610; 36415; 99283

== ENCOUNTER 2018-06-09 13:29 | Inpatient (IN) | payer OTHER ==
[~2018-06-09] VITALS: Ht 170.2 cm; Wt 68.1 kg
--- NOTE | 2018-06-09 13:46 | ERD ---
ER Documentation Chief Complaint Chief Complaint BIB RA FOR EVAL OF CP AND DIZZINESS. PT SIGNED OUT AMA MULTIPLE TIMES HPI 42-year-old male who was recently readmitted to the hospital for placement of an AICD secondary to a nonischemic cardiomyopathy that resulted in a cardiac arrest event with return of spontaneous circulation who then checked out AGAINST MEDICAL ADVICE represents to the emergency department to complete his admission. Patient has no new complaints at this time. He reports no chest pain or shortness of breath. ROS All systems reviewed and are negative except as per history of present illness. Medications Home Meds Reported Medications Furosemide* (Furosemide*) 40 Mg Tablet, 40 MG PO DAILY, TAB 06/05/18 Aspirin* (Aspirin* EC) 81 Mg Tablet.dr, 81 MG PO DAILY, TAB 06/05/18 Spironolactone* (Aldactone*) 25 Mg Tablet, 25 MG PO DAILY, #30 TAB 06/05/18 Lisinopril* (Lisinopril*) 10 Mg Tablet, 10 MG PO DAILY, #30 TAB 06/05/18 Allergies Allergies: Coded Allergies: No Known Allergy (Unverified , 06/09/18) PMhx/Soc History of Surgery: No Anesthesia Reaction: No (UNK) Hx Neurological Disorder: No Hx Respiratory Disorders: No Hx Cardiac Disorders: Yes (CHF, ARRYTHMIA) Hx Psychiatric Problems: No Hx Miscellaneous Medical Probl: Yes (HTN) Hx Alcohol Use: No Hx Substance Use: Yes (METH, MARIJUANA) Hx Tobacco Use: Yes (1 DAY) Physical Exam Vitals Vital Signs Date Temp Pulse Resp B/P (MAP) Pulse Ox O2 O2 Flow FiO2 Time Delivery Rate 06/09/18 97.5 89 17 130/96 100 13:31 (107) Physical Exam GENERAL: Chronically ill but in no acute distress HEENT: Pupils equal, round, and reactive to light. EOMI. There is no scleral icterus. NECK: C-spine is soft and supple, there is no meningismus. There is no cervical lymphadenopathy. LUNGS: Clear to auscultation bilaterally. There are no rales, wheezes or rhonchi. HEART: Regular rate and rhythm, no murmurs, clicks, rubs or gallops. ABDOMEN: Soft, non-tender, non-distended. There are bowel sounds in all four quadrants. No rebound or guarding. EXTREMITIES: There is no peripheral cyanosis or edema. No focal swelling or erythema. NEURO: The patient moves all four extremities with 5/5 strength. Cranial nerves II - XII are intact. Normal gait. Alert and oriented SKIN: There is no apparent rash or petechiae. HEME/LYMPHATIC: There is no evidence of excessive bruising or lymphedema. PSYCHIATRIC: The patient does not appear anxious or depressed. Procedures/MDM Patient was taken to a room, seen and examined Medical decision makin-year-old male read presents the emergency department after signing out AGAINST MEDICAL ADVICE twice. Medical screening examination shows that this is his ongoing issue. He will be readmitted for placement of his AICD. Departure Diagnosis: Primary Impression: Cardiomyopathy Condition: SARAH Leal Jun 09, 2018 13:46
[2018-06-09] MEDS ORDERED: SOD CHLORIDE 0.9% 1,000 ML IV SCH (14:39)
[2018-06-09] MEDS ORDERED: NITROGLYCERIN (SL) 0.4 MG TAB SL PRN (15:00)
[2018-06-09] MEDS ORDERED: DOCUSATE SODIUM 100 MG CAP PO PRN (15:00)
[2018-06-09] MEDS ORDERED: ACETAMINOPHEN 325 MG TAB PO PRN (15:00)
[2018-06-09] MEDS ORDERED: ONDANSETRON 4 MG INJ IV PRN (15:00)
[2018-06-09] MEDS ORDERED: NACL 0.9% 3 ML SYG IV SCH (15:00)
[2018-06-09] MEDS ORDERED: MAGNESIUM HYDROXIDE 30ML CUP PO PRN (15:00)
[2018-06-09] MEDS ORDERED: morphine 2 MG INJ IV PRN (15:00)
--- NOTE | 2018-06-09 15:18 | HP ---
Date/Time of Note Date/Time of Note DATE: 06/09/18 TIME: 15:10 Assessment/Plan VTE Prophylaxis SCD applied (from Nsg): Yes Pharmacological prophylaxis: NA/contraindicated Pharm contraindication: low risk/ambulating Assessment/Plan Assessment/Plan 1. Severe Cardiomyopathy - patient agreeable for now to stay until AICD placement on Thursday - Cardiology informed patient returned to ED after 2nd AMA today - ECHO results noted 2. H/o Cardiopulmonary arrest s/p V. fib arrest - Plans for AICD placement on Thursday - continue digoxin and carvedilol - Most likely secondary to meth use - Cardiology on board and appreciate recommendations 3. Anemia - will need PO replacement upon discharge 4. h/o substance abuse 5. Acute systolic and diastolic heart failure - ECHO results with EF 15% 6. tobacco abuse 7. Diet - Cardiac 8. Disposition - Will admit patient to telemetry pending AICD placement on Thursday. Given patients recent admission for VFib cardiac arrest with severe CM, benefits outweigh the risk for placement of AICD prior to discharge. Discussed with patient need to stop leaving AMA and returning to the hospital. HPI/ROS Admit Date/Time Admit Date/Time 06/09/18 1400 Hx of Present Illness 42 yo M with PMH Vfib arrest, severe CM, Illicit drug use, and tobacco abuse presented to ED after leaving AMA twice today for reevaluation for chest pain and shortness of breath. Patient states he left this am after finding out he wasn't going to have the AICD placed until Thursday. He reports when he talks for long periods of time he starts to cough with associated chest pain. He saw his brothers following leaving the ED this am and had a discussion. He returned to the ED for AICD placement. Patient admits to shortness of breath and chest discomfort with prolonged talking but denies any chest pain, nausea, vomiting, dizziness, abdominal issues, or urinary issues when at rest. ROS All 12 systems reviewed and pertinent positives as per HPI. All others negative. Constitutional: No chills, No fatigue, No nausea Eyes: No discharge ENT: No congestion Respiratory: shortness of breath; No cough, No sputum, No wheezing Cardiovascular: chest pain; No lightheadedness, No palpitations Gastrointestinal: No pain, No constipation, No diarrhea, No nausea, No vomiting Genitourinary: no complaints Musculoskeletal: no complaints Skin: No bruising, No laceration, No rash Neurologic: No confusion, No dizziness, No focal-weakness, No syncope Endocrine: no complaints Lymphatic: no complaints Psychological: nl mood/affect Immunologic: no complaints PMH/Family/Social Past Medical History Medical History: congestive heart failure, other (anemia) Medications Current Medications Digoxin (Digoxin) 0.125 mg DAILY@13 PO ; Start 06/10/18 at 13:00 Carvedilol (Coreg) 6.25 mg BID PO ; Start 06/09/18 at 21:00 Sodium Chloride 1,000 ml @ 20 mls/hr Q24H IV ; Start 06/09/18 at 14:39; Stop 06/10/18 at 00:38 IV Flush (NS 3 ml) 3 ml PER PROTOCOL IV ; Start 06/09/18 at 15:00 Ondansetron HCl (Zofran Inj) 4 mg Q6H PRN IV NAUSEA/VOMITING; Start 06/09/18 at 15:00 Nitroglycerin (Nitroglycerin (Sl Tab) 0.4 Mg) 1 tab Q5M PRN SL .CHEST PAIN; Start 06/09/18 at 15:00 Acetaminophen (Tylenol Tab) 650 mg Q6H PRN PO .PAIN 1-3 OR TEMP; Start 06/09/18 at 15:00 Acetaminophen/ Hydrocodone Bitart ([place] (5/325)) 1 tab Q6H PRN PO .PAIN 4-6; Start 06/09/18 at 15:00 Morphine Sulfate (morphine) 2 mg Q4H PRN IV .PAIN 7-10; Start 06/09/18 at 15:00 Docusate Sodium (Colace) 100 mg Q12H PRN PO .CONSTIPATION; Start 06/09/18 at 15:00 Magnesium Hydroxide (Milk Of Mag) 30 ml DAILY PRN PO .CONSTIPATION; Start 06/09/18 at 15:00 Pantoprazole (Protonix Iv) 40 mg DAILY@06 IV ; Start 06/10/18 at 06:00 Coded Allergies: No Known Allergy (Unverified , 06/09/18) Past Surgical History Past Surgical Hx: other (PCI) Family History Significant Family History: no pertinent family hx Social History Alcohol Use: other Smoking Status: Current every day smoker Drug Use: other (meth) Exam/Review of Systems Vital Signs Vitals Vital Signs Date Temp Pulse Resp B/P (MAP) Pulse Ox O2 O2 Flow FiO2 Time Delivery Rate 06/09/18 97.5 89 17 130/96 100 13:31 (107) Exam Exam General: Patient is laying in bed and answers questions appropriately. fatigued. dry cough with prolonged talking Mentation: Patient is alert and oriented 4 Head: Normocephalic atraumatic Eyes: EOMI, pupils reactive to light Neck: Supple, nontender, midline Respiratory: Clear to auscultation bilaterally Cardiovascular: regular rate and rhythm,, no obvious murmurs Gastrointestinal: soft, non-tender to palpation, bowel sounds heard. Neurological: Moves all extremities spontaneously Skin: No new skin lesions. pale complexion Additional Comments home medications reviewed ESTHER TABARES MD Jun 09, 2018 15:18
[2018-06-09] MEDS ORDERED: traZODone 50 MG TAB PO PRN (15:30)
[2018-06-09 22:12] VITALS: PULSE 95
[2018-06-09 22:15] VITALS: BP 132/95; PULSE 98; RESP 20; Ht 170.2 cm; Wt 68.1 kg
[2018-06-09 22:45] VITALS: BP 132/95; PULSE 98; RESP 20
[2018-06-10] VITALS (10 sets, daily range): BP systolic 126–180; BP diastolic 88–92; PULSE 75–98; RESP 16–18
[2018-06-10] MEDS: PANTOPRAZOLE 40 MG INJ IV SCH (05:45)
[2018-06-10] MEDS: LISINOPRIL 10 MG TAB PO SCH (08:18)
--- NOTE | 2018-06-10 09:11 | CONS ---
Assessment/Plan Assessment/Plan Hospital Course (Demo Recall) 1. Status post cardiac arrest. 2. Ventricular fibrillation, status post cardioversion. 3. Severe nonischemic cardiomyopathy. 4. History of drug use. 5. Smoker. 6. History of noncompliance. 7. Prolonged QT on the EKG. 8. Congestive heart failure acute on chronic secondary to systolic heart failure RECOMMENDATIONS: Electrolytes including potassium and magnesium will be replaced as needed. Try to keep the potassium more than 4 and magnesium more than 2. Continue with digoxin carvedilol We will add lisinopril and increase as tolerated/needed. Diuretic as needed I have had a very lengthy discussion with the patient as well as his 2 brothers. His 2 brothers appeared to be very understanding. I have explained to them that my recommendations are for the patient to get ICD to prevent second cardiac . the patient also further needs to completely stay away from drugs and smoking and has to be using medication on a regular basis. Risks benefits alternatives of ICD placement defibrillator threshold testing was discussed with the patient in detail. Risks including but not limited to risk of infection vascular complication bleeding complication pneumothorax hemothorax arrhythmia renal failure that anesthesiology complication etc. discussed with him in detail. Importance of compliance been discussed with him. At this point he has agreed to the procedure and has consented to it. Patient will be scheduled for tomorrow again for the procedure, although intermittently previously the has changed his mind had signed out against AMA . We will keep n.p.o. after midnight for the planned procedure for tomorrow at noontime Thank you for his referral. We will continue to follow along with you ALEX OLSEN MD [facility] Consultation Date/Type/Reason Admit Date/Time 06/09/18 1400 Date of Consultation: Jun 10, 2018 Type of Consult Cardiology Requesting Provider: ESTHER TABARES MD Date/Time of Note DATE: 06/10/18 TIME: 09:06 Hx of Present Illness interventional cardiology consult ation note Chief complaint: Weakness shortness of breath Reason for consult: History of V. fib cardiac arrest History of present illness: Thank you for this referral. History was obtained partially from the patient who is a poor historian. From discussion with physician staff including PREMA matt and from the review of the old chart. Patient also very well-known to me since he just left the hospital AMA AGAINST MEDICAL ADVICE This is a 42-year-old male with past medical history significant for congestive heart failure , meth use , with recent V. fib cardiopulmonary arrest found to be in V. fib arrest who was admitted to the hospital over the past week after his V. fib arrest. Patient is workup included coronary angiography which was done 06/08/18 by myself which did not show major obstructive coronary artery disease. Patient has threatened multiple times to sign AGAINST MEDICAL ADVICE but his brother have convinced him to come back. Patient signed an AGAINST MEDICAL ADVICE again multiple times yesterday. He was scheduled to have an ICD left AGAINST MEDICAL ADVICE. He came back to the emergency room because of increasing shortness of breath and he came to emergency room signed out AMA. However came back again. Now he wants to proceed with ICD as of now No V. tach at this point is noted Allergies: No known drug allergies Medications as per medical reconciliation sheet. Patient has been noncompliant at home with his medications Family history: Denies any early coronary artery disease to me Social history: Active smoker. Use drug including meds. Denies heavy alcohol use Past medical history: V. fib cardiac arrest in May 2018 severe nonischemic cardiomyopathy ejection fracture of about 15% Review of system: Patient denies all others except for above-mentioned Past Medical History Home Meds Reported Medications Furosemide* (Furosemide*) 40 Mg Tablet, 40 MG PO DAILY, TAB 06/05/18 Aspirin* (Aspirin* EC) 81 Mg Tablet.dr, 81 MG PO DAILY, TAB 06/05/18 Spironolactone* (Aldactone*) 25 Mg Tablet, 25 MG PO DAILY, #30 TAB 06/05/18 Lisinopril* (Lisinopril*) 10 Mg Tablet, 10 MG PO DAILY, #30 TAB 06/05/18 Medications Current Medications Digoxin (Digoxin) 0.125 mg DAILY@13 PO ; Start 06/10/18 at 13:00 Carvedilol (Coreg) 6.25 mg BID PO Last administered on 06/10/18at 08:18; Admin Dose 6.25 MG; Start 06/09/18 at 21:00 IV Flush (NS 3 ml) 3 ml PER PROTOCOL IV ; Start 06/09/18 at 15:00 Ondansetron HCl (Zofran Inj) 4 mg Q6H PRN IV NAUSEA/VOMITING; Start 06/09/18 at 15:00 Nitroglycerin (Nitroglycerin (Sl Tab) 0.4 Mg) 1 tab Q5M PRN SL .CHEST PAIN; Start 06/09/18 at 15:00 Acetaminophen (Tylenol Tab) 650 mg Q6H PRN PO .PAIN 1-3 OR TEMP; Start 06/09/18 at 15:00 Acetaminophen/ Hydrocodone Bitart ([place] (5/325)) 1 tab Q6H PRN PO .PAIN 4-6; Start 06/09/18 at 15:00 Morphine Sulfate (morphine) 2 mg Q4H PRN IV .PAIN 7-10; Start 06/09/18 at 15:00 Docusate Sodium (Colace) 100 mg Q12H PRN PO .CONSTIPATION; Start 06/09/18 at 15:00 Magnesium Hydroxide (Milk Of Mag) 30 ml DAILY PRN PO .CONSTIPATION; Start 06/09/18 at 15:00 Pantoprazole (Protonix Iv) 40 mg DAILY@06 IV Last administered on 06/10/18at 05:45; Admin Dose 40 MG; Start 06/10/18 at 06:00 Trazodone HCl (Desyrel) TAKE 1 TABLET HS ... HS PRN PO insomnia Last administ ered on 06/10/18at 00:57; Admin Dose 50 MG; Start 06/09/18 at 15:30 Lisinopril (Zestril) 10 mg DAILY PO Last administered on 06/10/18at 08:18; Admin Dose 10 MG; Start 06/10/18 at 09:00 Dextrose/Sodium Chloride 1,000 ml @ 100 mls/hr Q10H IV ; Start 06/11/18 at 02:00; Stop 06/11/18 at 11:59; Status UNV Allergies: Coded Allergies: No Known Allergy (Unverified , 06/09/18) Past Surgical History Past Surgical Hx: other (PCI) Social History Alcohol Use: other Smoking Status: Current every day smoker Drug Use: other (meth) Exam/Review of Systems Vital Signs Vitals Vital Signs Date Temp Pulse Resp B/P (MAP) Pulse Ox O2 O2 Flow FiO2 Time Delivery Rate 06/10/18 98.7 98 18 140/92 98 Room Air 07:25 (108) Exam Exam Objective: General: no acute distress HEENT: NC/AT. pupils are equal. round. NECK: NO JVD. no stridor. CV: RRR. systolic murmur; no gallop or rubs. PULM: no wheezing or rhonchi. Chest: Positive reproducible chest wall tenderness GI: SOFT, NT, ND, no rebound or guarding Extremity: trace B/L LE edema. no clubbing. neuro: awake and alert at this point Psych: Calm at the moment rectal: deferred Echocardiogram was personally reviewed which shows: Normal left ventricular wall thickness. Severe enlargement of left ventricle ca vity. Severe left ventricular systolic dysfunction. Ejection fraction is visually estimated at 15 %. Tissue Doppler/Mitral Doppler indices are consistent with restrictive physiology with markedly elevated left atrial pressure (Stage III-IV diastolic dysfunction). E/E'= 30. There is mild enlargement of left atrium. LA Volume Index= 45. Mitral valve leaflets appear mildly thickened. Mild to moderate mitral valve regurgitation. No significant aortic stenosis or insufficiency. Normal trileaflet aortic valve structure. Aortic cusps appear mildly calcified. Normal appearance of the tricuspid valve. Estimated peak PA systolic pressure 51 mmHg. There is mild to moderate tricuspid regurgitation. Labs Result Diagram: 06/10/18 0757 Results 24hrs Laboratory Tests Test 06/09/18 16:37 06/10/18 07:57 Urine Opiates Screen Negative Urine Barbiturates Negative Urine Amphetamines Screen Negative Urine Benzodiazepines Screen Negative Urine Cocaine Screen Negative Urine Cannabinoids Negative White Blood Count 7.7 Red Blood Count 4.60 L Hemoglobin 10.9 L Hematocrit 34.4 L Mean Corpuscular Volume 74.8 L Mean Corpuscular Hemoglobin 23.7 L Mean Corpuscular Hemoglobin Concent 31.7 L Red Cell Distribution Width 18.3 H Platelet Count 304 Mean Platelet Volume 9.7 Immature Granulocytes % 0.400 Neutrophils % 69.0 Lymphocytes % 20.4 Monocytes % 7.5 Eosinophils % 2.1 Basophils % 0.6 Nucleated Red Blood Cells % 0.0 Immature Granulocytes # 0.030 Neutrophils # 5.3 Lymphocytes # 1.6 Monocytes # 0.6 Eosinophils # 0.2 Basophils # 0.1 Nucleated Red Blood Cells # 0.0 Medications Medications Current Medications Digoxin (Digoxin) 0.125 mg DAILY@13 PO ; Start 06/10/18 at 13:00 Carvedilol (Coreg) 6.25 mg BID PO Last administered on 06/10/18at 08:18; Admin Dose 6.25 MG; Start 06/09/18 at 21:00 IV Flush (NS 3 ml) 3 ml PER PROTOCOL IV ; Start 06/09/18 at 15:00 Ondansetron HCl (Zofran Inj) 4 mg Q6H PRN IV NAUSEA/VOMITING; Start 06/09/18 at 15:00 Nitroglycerin (Nitroglycerin (Sl Tab) 0.4 Mg) 1 tab Q5M PRN SL .CHEST PAIN; Start 06/09/18 at 15:00 Acetaminophen (Tylenol Tab) 650 mg Q6H PRN PO .PAIN 1-3 OR TEMP; Start 06/09/18 at 15:00 Acetaminophen/ Hydrocodone Bitart ([place] (5/325)) 1 tab Q6H PRN PO .PAIN 4-6; Start 06/09/18 at 15:00 Morphine Sulfate (morphine) 2 mg Q4H PRN IV .PAIN 7-10; Start 06/09/18 at 15:00 Docusate Sodium (Colace) 100 mg Q12H PRN PO .CONSTIPATION; Start 06/09/18 at 15:00 Magnesium Hydroxide (Milk Of Mag) 30 ml DAILY PRN PO .CONSTIPATION; Start 06/09/18 at 15:00 Pantoprazole (Protonix Iv) 40 mg DAILY@06 IV Last administered on 06/10/18at 05:45; Admin Dose 40 MG; Start 06/10/18 at 06:00 Trazodone HCl (Desyrel) TAKE 1 TABLET HS ... HS PRN PO insomnia Last administered on 06/10/18at 00:57; Admin Dose 50 MG; Start 06/09/18 at 15:30 Lisinopril (Zestril) 10 mg DAILY PO Last administered on 06/10/18at 08:18; Admin Dose 10 MG; Start 06/10/18 at 09:00 Dextrose/Sodium Chloride 1,000 ml @ 100 mls/hr Q10H IV ; Start 06/11/18 at 02:00; Stop 06/11/18 at 11:59; Status ALEX ECHEVERRIA MD Jun 10, 2018 09:11
--- NOTE | 2018-06-10 09:21 | PN ---
Date/Time of Note Date/Time of Note DATE: 06/10/18 TIME: 09:21 Assessment/Plan VTE Prophylaxis SCD applied (from Nsg): Yes Pharmacological prophylaxis: NA/contraindicated Pharm contraindication: surgical contra Lines/Catheters IV Catheter Type (from Nrsg): Saline Lock Urinary Cath still in place: No Assessment/Plan Assessment/Plan 1. Severe Cardiomyopathy - Plans for AICD placement tomorrow and will keep NPO after midnight - Cardiology consultation appreciated - ECHO results noted 2. H/o Cardiopulmonary arrest s/p V. fib arrest - continue digoxin and carvedilol - Most likely secondary to meth use - Cardiology on board and appreciate recommendations 3. Anemia - will need PO replacement upon discharge 4. h/o substance abuse - utox negative 5. Acute systolic and diastolic heart failure - ECHO results with EF 15% 6. tobacco abuse 7. Disposition - keep NPO after midnight for AICD placement tomorrow Result Diagram: 06/10/18 0757 Results 24hrs Laboratory Tests Test 06/09/18 16:37 06/10/18 07:57 Urine Opiates Screen Negative Urine Barbiturates Negative Urine Amphetamines Screen Negative Urine Benzodiazepines Screen Negative Urine Cocaine Screen Negative Urine Cannabinoids Negative White Blood Count 7.7 Red Blood Count 4.60 L Hemoglobin 10.9 L Hematocrit 34.4 L Mean Corpuscular Volume 74.8 L Mean Corpuscular Hemoglobin 23.7 L Mean Corpuscular Hemoglobin Concent 31.7 L Red Cell Distribution Width 18.3 H Platelet Count 304 Mean Platelet Volume 9.7 Immature Granulocytes % 0.400 Neutrophils % 69.0 Lymphocytes % 20.4 Monocytes % 7.5 Eosinophils % 2.1 Basophils % 0.6 Nucleated Red Blood Cells % 0.0 Immature Granulocytes # 0.030 Neutrophils # 5.3 Lymphocytes # 1.6 Monocytes # 0.6 Eosinophils # 0.2 Basophils # 0.1 Nucleated Red Blood Cells # 0.0 Subjective 24 Hr Interval Summary Free Text/Dictation Patient resting and denies any acute issues. Discussed AICD placement tomorrow and to not leave AMA. Exam/Review of Systems Exam Vitals Vital Signs Date Temp Pulse Resp B/P (MAP) Pulse Ox O2 O2 Flow FiO2 Time Delivery Rate 06/10/18 94 09:17 06/10/18 98.7 18 140/92 98 Room Air 07:25 (108) Exam General: Patient is laying in bed and answers questions appropriately Mentation: Patient is alert and oriented 4 Neck: Supple, nontender, midline Respiratory: Clear to auscultation bilaterally Cardiovascular: regular rate and rhythm,, no obvious murmurs Gastrointestinal: soft, non-tender to palpation, bowel sounds heard. Neurological: Moves all extremities spontaneously Skin: No new skin lesions. pale complexion Results Results 24hrs Laboratory Tests Test 06/09/18 16:37 06/10/18 07:57 Urine Opiates Screen Negative Urine Barbiturates Negative Urine Amphetamines Screen Negative Urine Benzodiazepines Screen Negative Urine Cocaine Screen Negative Urine Cannabinoids Negative White Blood Count 7.7 Red Blood Count 4.60 L Hemoglobin 10.9 L Hematocrit 34.4 L Mean Corpuscular Volume 74.8 L Mean Corpuscular Hemoglobin 23.7 L Mean Corpuscular Hemoglobin Concent 31.7 L Red Cell Distribution Width 18.3 H Platelet Count 304 Mean Platelet Volume 9.7 Immature Granulocytes % 0.400 Neutrophils % 69.0 Lymphocytes % 20.4 Monocytes % 7.5 Eosinophils % 2.1 Basophils % 0.6 Nucleated Red Blood Cells % 0.0 Immature Granulocytes # 0.030 Neutrophils # 5.3 Lymphocytes # 1.6 Monocytes # 0.6 Eosinophils # 0.2 Basophils # 0.1 Nucleated Red Blood Cells # 0.0 Medications Medication Current Medications Digoxin (Digoxin) 0.125 mg DAILY@13 PO ; Start 06/10/18 at 13:00 Carvedilol (Coreg) 6.25 mg BID PO Last administered on 06/10/18at 08:18; Admin Do se 6.25 MG; Start 06/09/18 at 21:00 IV Flush (NS 3 ml) 3 ml PER PROTOCOL IV ; Start 06/09/18 at 15:00 Ondansetron HCl (Zofran Inj) 4 mg Q6H PRN IV NAUSEA/VOMITING; Start 06/09/18 at 15:00 Nitroglycerin (Nitroglycerin (Sl Tab) 0.4 Mg) 1 tab Q5M PRN SL .CHEST PAIN; Start 06/09/18 at 15:00 Acetaminophen (Tylenol Tab) 650 mg Q6H PRN PO .PAIN 1-3 OR TEMP; Start 06/09/18 at 15:00 Acetaminophen/ Hydrocodone Bitart ([place] (5/325)) 1 tab Q6H PRN PO .PAIN 4-6; Start 06/09/18 at 15:00 Morphine Sulfate (morphine) 2 mg Q4H PRN IV .PAIN 7-10; Start 06/09/18 at 15:00 Docusate Sodium (Colace) 100 mg Q12H PRN PO .CONSTIPATION; Start 06/09/18 at 15:00 Magnesium Hydroxide (Milk Of Mag) 30 ml DAILY PRN PO .CONSTIPATION; Start 06/09/18 at 15:00 Pantoprazole (Protonix Iv) 40 mg DAILY@06 IV Last administered on 06/10/18at 05:45; Admin Dose 40 MG; Start 06/10/18 at 06:00 Trazodone HCl (Desyrel) TAKE 1 TABLET HS ... HS PRN PO insomnia Last administered on 06/10/18at 00:57; Admin Dose 50 MG; Start 06/09/18 at 15:30 Lisinopril (Zestril) 10 mg DAILY PO Last administered on 06/10/18at 08:18; Admin Dose 10 MG; Start 06/10/18 at 09:00 Dextrose/Sodium Chloride 1,000 ml @ 100 mls/hr Q10H IV ; Start 06/11/18 at 02:00; Stop 06/11/18 at 11:59 ESTHER TABARES MD Jun 10, 2018 09:21
[2018-06-10] MEDS: DIGOXIN 0.125 MG TAB PO SCH (12:36)
[2018-06-10] MEDS ORDERED: traZODone 50 MG TAB PO PRN (17:30)
[2018-06-11] VITALS (17 sets, daily range): BP systolic 92–140; BP diastolic 46–91; PULSE 68–96; RESP 13–18
[2018-06-11] MEDS ORDERED: DEXTROSE 5%-0.9% NACL 1,000 ML IV SCH (02:00)
[2018-06-11] MEDS: PANTOPRAZOLE 40 MG INJ IV SCH (06:06)
--- NOTE | 2018-06-11 08:38 | PN ---
Date/Time of Note Date/Time of Note DATE: 06/11/18 TIME: 08:37 Assessment/Plan VTE Prophylaxis Risk score (from [facility] [place])>0 risk: 1 SCD applied (from [facility] [place]): No SCD contraindicated: low risk/ambulating Pharmacological prophylaxis: NA/contraindicated Pharm contraindication: surgical contra Lines/Catheters Urinary Cath still in place: No Assessment/Plan Assessment/Plan 1. Severe Cardiomyopathy - AICD placement today and discussed with pt and brother postoperative care - Cardiology consultation appreciated - ECHO results noted 2. H/o Cardiopulmonary arrest s/p V. fib arrest - continue digoxin and carvedilol - Most likely secondary to meth use - Cardiology on board and appreciate recommendations 3. Anemia - will need PO replacement upon discharge 4. h/o substance abuse - utox negative 5. Acute systolic and diastolic heart failure - ECHO results with EF 15% 6. tobacco abuse 7. Disposition - AICD placement today Result Diagram: 06/11/18 0534 06/11/18 0534 Results 24hrs Laboratory Tests Test 06/11/18 05:34 White Blood Count 8.2 Red Blood Count 4.78 Hemoglobin 11.2 L Hematocrit 36.2 L Mean Corpuscular Volume 75.7 L Mean Corpuscular Hemoglobin 23.4 L Mean Corpuscular Hemoglobin Concent 30.9 L Red Cell Distribution Width 17.7 H Platelet Count 324 Mean Platelet Volume 9.6 Immature Granulocytes % 0.400 Neutrophils % 69.8 Lymphocytes % 18.4 Monocytes % 7.5 Eosinophils % 3.3 Basophils % 0.6 Nucleated Red Blood Cells % 0.0 Immature Granulocytes # 0.030 Neutrophils # 5.7 Lymphocytes # 1.5 Monocytes # 0.6 Eosinophils # 0.3 Basophils # 0.1 Nucleated Red Blood Cells # 0.0 Prothrombin Time 13.2 Prothrombin Time Ratio 1.0 INR International Normalized Ratio 0.99 Sodium Level 139 Potassium Level 4.4 Chloride Level 104 Carbon Dioxide Level 25 Anion Gap 10 Blood Urea Nitrogen 18 Creatinine 1.04 Est Glomerular Filtrat Rate mL/min > 60 Glucose Level 105 Calcium Level 9.0 Magnesium Level 1.9 Total Bilirubin 1.1 Direct Bilirubin 0.00 Indirect Bilirubin 1.1 Aspartate Amino Transf (AST/SGOT) 40 Alanine Aminotransferase (ALT/SGPT) 96 H Alkaline Phosphatase 135 H B-Type Natriuretic Peptide 8010 H Total Protein 7.2 Albumin 3.8 Globulin 3.40 H Albumin/Globulin Ratio 1.11 Digoxin Level 0.5 L Subjective 24 Hr Interval Summary Free Text/Dictation Patient is doing well and denies any new issues. No acute overnight events. Plans for AICD today Exam/Review of Systems Exam Vitals Vital Signs Date Temp Pulse Resp B/P (MAP) Pulse Ox O2 O2 Flow FiO2 Time Delivery Rate 06/11/18 96 08:18 06/11/18 97.5 16 132/91 98 Room Air 07:30 (105) Intake and Output 06/10/18 06/10/18 06/11/18 1515:00 23:00 07:00 IntakeIntake Total 1220 ml BalanceBalance 1220 ml Exam General: Patient is laying in bed and answers questions appropriately Mentation: Patient is alert and oriented 4 Neck: Supple, nontender, midline Respiratory: Clear to auscultation bilaterally Cardiovascular: regular rate and rhythm,, no obvious murmurs Gastrointestinal: soft, non-tender to palpation, bowel sounds heard. Neurological: Moves all extremities spontaneously. no focal deficits appreciated Results Results 24hrs Laboratory Tests Test 06/11/18 05:34 White Blood Count 8.2 Red Blood Count 4.78 Hemoglobin 11.2 L Hematocrit 36.2 L Mean Corpuscular Volume 75.7 L Mean Corpuscular Hemoglobin 23.4 L Mean Corpuscular Hemoglobin Concent 30.9 L Red Cell Distribution Width 17.7 H Platelet Count 324 Mean Platelet Volume 9.6 Immature Granulocytes % 0.400 Neutrophils % 69.8 Lymphocytes % 18.4 Monocytes % 7.5 Eosinophils % 3.3 Basophils % 0.6 Nucleated Red Blood Cells % 0.0 Immature Granulocytes # 0.030 Neutrophils # 5.7 Lymphocytes # 1.5 Monocytes # 0.6 Eosinophils # 0.3 Basophils # 0.1 Nucleated Red Blood Cells # 0.0 Prothrombin Time 13.2 Prothrombin Time Ratio 1.0 INR International Normalized Ratio 0.99 Sodium Level 139 Potassium Level 4.4 Chloride Level 104 Carbon Dioxide Level 25 Anion Gap 10 Blood Urea Nitrogen 18 Creatinine 1.04 Est Glomerular Filtrat Rate mL/min > 60 Glucose Level 105 Calcium Level 9.0 Magnesium Level 1.9 Total Bilirubin 1.1 Direct Bilirubin 0.00 Indirect Bilirubin 1.1 Aspartate Amino Transf (AST/SGOT) 40 Alanine Aminotransferase (ALT/SGPT) 96 H Alkaline Phosphatase 135 H B-Type Natriuretic Peptide 8010 H Total Protein 7.2 Albumin 3.8 Globulin 3.40 H Albumin/Globulin Ratio 1.11 Digoxin Level 0.5 L Medications Medication Current Medications Digoxin (Digoxin) 0.125 mg DAILY@13 PO Last administered on 06/10/18at 12:36; Admin Dose 0.125 MG; Start 06/10/18 at 13:00 Carvedilol (Coreg) 6.25 mg BID PO Last administered on 06/10/18at 21:31; Admin Dose 6.25 MG; Start 06/09/18 at 21:00 IV Flush (NS 3 ml) 3 ml PER PROTOCOL IV ; Start 06/09/18 at 15:00 Ondansetron HCl (Zofran Inj) 4 mg Q6H PRN IV NAUSEA/VOMITING; Start 06/09/18 at 15:00 Nitroglycerin (Nitroglycerin (Sl Tab) 0.4 Mg) 1 tab Q5M PRN SL .CHEST PAIN; Start 06/09/18 at 15:00 Acetaminophen (Tylenol Tab) 650 mg Q6H PRN PO .PAIN 1-3 OR TEMP; Start 06/09/18 at 15:00 Acetaminophen/ Hydrocodone Bitart ([place] (5/325)) 1 tab Q6H PRN PO .PAIN 4-6; Start 06/09/18 at 15:00 Morphine Sulfate (morphine) 2 mg Q4H PRN IV .PAIN 7-10; Start 06/09/18 at 15:00 Docusate Sodium (Colace) 100 mg Q12H PRN PO .CONSTIPATION; Start 06/09/18 at 15:00 Magnesium Hydroxide (Milk Of Mag) 30 ml DAILY PRN PO .CONSTIPATION; Start 06/09/18 at 15:00 Pantoprazole (Protonix Iv) 40 mg DAILY@06 IV Last administered on 06/11/18at 06:06; Admin Dose 40 MG; Start 06/10/18 at 06:00 Lisinopril (Zestril) 10 mg DAILY PO Last administered on 06/10/18at 08:18; Admin Dose 10 MG; Start 06/10/18 at 09:00 Dextrose/Sodium Chloride 1,000 ml @ 100 mls/hr Q10H IV Last administered on 06/11/18at 02:07; Admin Dose 100 MLS/HR; Start 06/11/18 at 02:00; Stop 06/11/18 at 11:59 Trazodone HCl (Desyrel) 50 mg HS MAY REPEAT X 1 PRN PO insomnia; Start 06/10/18 at 17:30 ESTHER TABARES MD Jun 11, 2018 08:37
[2018-06-11] MEDS: LISINOPRIL 10 MG TAB PO SCH (08:44)
--- NOTE | 2018-06-11 10:54 | CONS ---
Consult Date/Type/Reason Admit Date/Time Jun 09, 2018 at 13:44 Initial Consult Date 06/10/18 Type of Consultation: cv Requesting Provider: ESTHER TABARES MD Date/Time of Note DATE: 06/11/18 TIME: 10:51 Subjective interventional cardiology follow up note S: Jason STAFF physicians and pt's brother tele was reviewed. pt remains in NSR he is calm now and has not signed out AMA again and has been agreeable to ICD so far Objective: General: no acute distress HEENT: NC/AT. pupils are equal. round. NECK: NO JVD. no stridor. CV: RRR. systolic murmur; no gallop or rubs. PULM: no wheezing or rhonchi. Chest: Positive reproducible chest wall tenderness GI: SOFT, NT, ND, no rebound or guarding Extremity: trace B/L LE edema. no clubbing. neuro: sleeping comfortably Psych: Calm at the moment rectal: deferred Echocardiogram was personally reviewed which shows: Normal left ventricular wall thickness. Severe enlargement of left ventricle cavity. Severe left ventricular systolic dysfunction. Ejection fraction is visually estimated at 15 %. Tissue Doppler/Mitral Doppler indices are consistent with restrictive physiology with markedly elevated left atrial pressure (Stage III-IV diastolic dysfunction). E/E'= 30. There is mild enlargement of left atrium. LA Volume Index= 45. Mitral valve leaflets appear mildly thickened. Mild to moderate mitral valve regurgitation. No significant aortic stenosis or insufficiency. Normal trileaflet aortic valve structure. Aortic cusps appear mildly calcified. Normal appearance of the tricuspid valve. Estimated peak PA systolic pressure 51 mmHg. There is mild to moderate tricuspid regurgitation. Objective Vitals Vital Signs Date Temp Pulse Resp B/P (MAP) Pulse Ox O2 O2 Flow FiO2 Time Delivery Rate 06/11/18 96 08:18 06/11/18 97.5 16 132/91 98 Room Air 07:30 (105) Intake and Output 06/10/18 06/10/18 06/11/18 1515:00 23:00 07:00 IntakeIntake Total 1220 ml BalanceBalance 1220 ml Results/Medications Result Diagram: 06/11/18 0534 06/11/18 0534 Results 24 hrs Laboratory Tests Test 06/11/18 05:34 White Blood Count 8.2 Red Blood Count 4.78 Hemoglobin 11.2 L Hematocrit 36.2 L Mean Corpuscular Volume 75.7 L Mean Corpuscular Hemoglobin 23.4 L Mean Corpuscular Hemoglobin Concent 30.9 L Red Cell Distribution Width 17.7 H Platelet Count 324 Mean Platelet Volume 9.6 Immature Granulocytes % 0.400 Neutrophils % 69.8 Lymphocytes % 18.4 Monocytes % 7.5 Eosinophils % 3.3 Basophils % 0.6 Nucleated Red Blood Cells % 0.0 Immature Granulocytes # 0.030 Neutrophils # 5.7 Lymphocytes # 1.5 Monocytes # 0.6 Eosinophils # 0.3 Basophils # 0.1 Nucleated Red Blood Cells # 0.0 Prothrombin Time 13.2 Prothrombin Time Ratio 1.0 INR International Normalized Ratio 0.99 Sodium Level 139 Potassium Level 4.4 Chloride Level 104 Carbon Dioxide Level 25 Anion Gap 10 Blood Urea Nitrogen 18 Creatinine 1.04 Est Glomerular Filtrat Rate mL/min > 60 Glucose Level 105 Calcium Level 9.0 Magnesium Level 1.9 Total Bilirubin 1.1 Direct Bilirubin 0.00 Indirect Bilirubin 1.1 Aspartate Amino Transf (AST/SGOT) 40 Alanine Aminotransferase (ALT/SGPT) 96 H Alkaline Phosphatase 135 H B-Type Natriuretic Peptide 8010 H Total Protein 7.2 Albumin 3.8 Globulin 3.40 H Albumin/Globulin Ratio 1.11 Digoxin Level 0.5 L Home Meds Reported Medications Furosemide* (Furosemide*) 40 Mg Tablet, 40 MG PO DAILY, TAB 06/05/18 Aspirin* (Aspirin* EC) 81 Mg Tablet.dr, 81 MG PO DAILY, TAB 06/05/18 Spironolactone* (Aldactone*) 25 Mg Tablet, 25 MG PO DAILY, #30 TAB 06/05/18 Lisinopril* (Lisinopril*) 10 Mg Tablet, 10 MG PO DAILY, #30 TAB 06/05/18 Medications Current Medications Digoxin (Digoxin) 0.125 mg DAILY@13 PO Last administered on 06/10/18at 12:36; Admin Dose 0.125 MG; Start 06/10/18 at 13:00 Carvedilol (Coreg) 6.25 mg BID PO Last administered on 06/11/18at 08:44; Admin Dose 6.25 MG; Start 06/09/18 at 21:00 IV Flush (NS 3 ml) 3 ml PER PROTOCOL IV ; Start 06/09/18 at 15:00 Ondansetron HCl (Zofran Inj) 4 mg Q6H PRN IV NAUSEA/VOMITING; Start 06/09/18 at 15:00 Nitroglycerin (Nitroglycerin (Sl Tab) 0.4 Mg) 1 tab Q5M PRN SL .CHEST PAIN; Start 06/09/18 at 15:00 Acetaminophen (Tylenol Tab) 650 mg Q6H PRN PO .PAIN 1-3 OR TEMP; Start 06/09/18 at 15:00 Acetaminophen/ Hydrocodone Bitart ([place] (5/325)) 1 tab Q6H PRN PO .PAIN 4-6; Start 06/09/18 at 15:00 Morphine Sulfate (morphine) 2 mg Q4H PRN IV .PAIN 7-10; Start 06/09/18 at 15:00 Docusate Sodium (Colace) 100 mg Q12H PRN PO .CONSTIPATION; Start 06/09/18 at 15:00 Magnesium Hydroxide (Milk Of Mag) 30 ml DAILY PRN PO .CONSTIPATION; Start 06/09/18 at 15:00 Pantoprazole (Protonix Iv) 40 mg DAILY@06 IV Last administered on 06/11/18at 06:06; Admin Dose 40 MG; Start 06/10/18 at 06:00 Lisinopril (Zestril) 10 mg DAILY PO Last administered on 06/11/18at 08:44; Admin Dose 10 MG; Start 06/10/18 at 09:00 Dextrose/Sodium Chloride 1,000 ml @ 100 mls/hr Q10H IV Last administered on 06/11/18at 02:07; Admin Dose 100 MLS/HR; Start 06/11/18 at 02:00; Stop 06/11/18 at 11:59 Trazodone HCl (Desyrel) 50 mg HS MAY REPEAT X 1 PRN PO insomnia; Start 06/10/18 at 17:30 Assessment/Plan Hospital Course (Demo Recall) 1. Status post cardiac arrest. 2. Ventricular fibrillation, status post cardioversion. 3. Severe nonischemic cardiomyopathy. 4. History of drug use. 5. Smoker. 6. History of noncompliance. 7. Prolonged QT on the EKG. 8. Congestive heart failure acute on chronic secondary to systolic heart failure 9/debility RECOMMENDATIONS: Electrolytes including potassium and magnesium will be replaced as needed. Try to keep the potassium more than 4 and magnesium more than 2. Continue with digoxin Continue with carvedilol and increase as needed/tolerated cont lisinopril and increase as tolerated/needed. Diuretic as needed Plan for ICD placement today Thank you for his referral. We will continue to follow along with you ALEX OLSEN MD [facility] ALEX OLSEN MD Jun 11, 2018 10:54
--- NOTE | 2018-06-11 12:36 | PREAC ---
Date/Time of Note Date/Time of Note DATE: 06/11/18 TIME: 12:34 Anesthesia Eval and Record Evaluation Time Pre-Procedure Interview DATE: 06/11/18 TIME: 12:34 Age 42 Sex male NPO: 8 hrs Preoperative diagnosis S/P ventricular fibrillation and cardiac arrest Planned procedure AICD placement Past Medical History Past Medical History: Includes Cardio: HTN, Arrythmia, CHF, Other (Cardiomyopathy) Psych: Anxiety Recreational drugs: Other (Methamphetamine) Surgery & Anesthesia Issues No known issue Meds Anticoagulation: No Beta Yogesh within 24 hr: No Reason Beta Yogesh not given: Pt. not on B-Yogesh Reported Medications Furosemide* (Furosemide*) 40 Mg Tablet, 40 MG PO DAILY, TAB 06/05/18 Aspirin* (Aspirin* EC) 81 Mg Tablet.dr, 81 MG PO DAILY, TAB 06/05/18 Spironolactone* (Aldactone*) 25 Mg Tablet, 25 MG PO DAILY, #30 TAB 06/05/18 Lisinopril* (Lisinopril*) 10 Mg Tablet, 10 MG PO DAILY, #30 TAB 06/05/18 Current Medications Digoxin (Digoxin) 0.125 mg DAILY@13 PO Last administered on 06/10/18at 12:36; Admin Dose 0.125 MG; Start 06/10/18 at 13:00 Carvedilol (Coreg) 6.25 mg BID PO Last administered on 06/11/18at 08:44; Admin Dose 6.25 MG; Start 06/09/18 at 21:00 IV Flush (NS 3 ml) 3 ml PER PROTOCOL IV ; Start 06/09/18 at 15:00 Ondansetron HCl (Zofran Inj) 4 mg Q6H PRN IV NAUSEA/VOMITING; Start 06/09/18 at 15:00 Nitroglycerin (Nitroglycerin (Sl Tab) 0.4 Mg) 1 tab Q5M PRN SL .CHEST PAIN; Start 06/09/18 at 15:00 Acetaminophen (Tylenol Tab) 650 mg Q6H PRN PO .PAIN 1-3 OR TEMP; Start 06/09/18 at 15:00 Acetaminophen/ Hydrocodone Bitart ([place] (5/325)) 1 tab Q6H PRN PO .PAIN 4-6; Start 06/09/18 at 15:00 Morphine Sulfate (morphine) 2 mg Q4H PRN IV .PAIN 7-10; Start 06/09/18 at 15:00 Docusate Sodium (Colace) 100 mg Q12H PRN PO .CONSTIPATION; Start 06/09/18 at 15:00 Magnesium Hydroxide (Milk Of Mag) 30 ml DAILY PRN PO .CONSTIPATION; Start 06/09/18 at 15:00 Pantoprazole (Protonix Iv) 40 mg DAILY@06 IV Last administered on 06/11/18at 06:06; Admin Dose 40 MG; Start 06/10/18 at 06:00 Lisinopril (Zestril) 10 mg DAILY PO Last administered on 06/11/18at 08:44; Admin Dose 10 MG; Start 06/10/18 at 09:00 Trazodone HCl (Desyrel) 50 mg HS MAY REPEAT X 1 PRN PO insomnia; Start 06/10/18 at 17:30 Meds reviewed: Yes Allergies Coded Allergies: No Known Allergy (Unverified , 06/09/18) Allergies Reviewed: Yes Labs/Studies Labs Reviewed: Reviewed by anesthesiologist Result Diagram: 06/11/18 0534 06/11/18 0534 Laboratory Tests 06/11/18 05:34 test: N/A Pre-procedure Exam Last vitals Vital Signs Date Temp Pulse Resp B/P (MAP) Pulse Ox O2 O2 Flow FiO2 Time Delivery Rate 06/11/18 73 12:07 06/11/18 97.6 16 130/86 98 Room Air 11:44 (101) Airway: Adequate mouth opening Mallampati: Mallampati I Teeth: Normal Lung: Normal Heart: Normal ASA Physical Status ASA physical status: 3 Emergency: None Planned Anesthetic General/MAC: MAC Planned Pain Management Parenteral pain med Pre-operative Attestations Prior to commencing anesthesia and surgery, the patient was re-evaluated, there was verification of: *The patient's identity *The results of appropriate recent lab work and preoperative vital signs *The above evaluation not changing prior to induction *Anesthetic plan, risk benefits, alternative and complications discussed with patient/family; questions answered; patient/family understands, accepts and wishes to proceed. MIRELA KING MD Jun 11, 2018 12:36
[2018-06-11] MEDS ORDERED: PROPOFOL 20 ML ONE (12:45)
[2018-06-11] MEDS ORDERED: MIDAZOLAM 1 MG/ML 2 ML INJ ONE ×2 (12:45→13:36)
[2018-06-11] MEDS ORDERED: FENTAnyl 50 MCG/ML VIAL ONE ×2 (12:45→13:39)
[2018-06-11] MEDS: DIGOXIN 0.125 MG TAB PO SCH (13:00)
[2018-06-11] MEDS ORDERED: IODIXANOL LOCM 50 ML BTL ONE (13:05)
[2018-06-11] MEDS ORDERED: CEFAZOLIN 1 GM/50 ML (PMX) 50 ML IVPB ONE ×2 (13:10)
[2018-06-11] MEDS ORDERED: LIDOCAINE 1%/EPI (1:100,000) (MDV) 20 ML ONE (13:18)
[2018-06-11] MEDS ORDERED: POLYMYXIN/BACITRACIN 1L IRRIG IRR SCH (13:30)
[2018-06-11] MEDS ORDERED: POLYMYXIN/BACITRACIN 1L IRRIG IRR ONE (14:00)
--- NOTE | 2018-06-11 14:21 | OPR ---
Date/Time of Note Date/Time of Note DATE: 06/11/18 TIME: 14:17 Operative Report Procedure Date: Jun 11, 2018 Preoperative Diagnosis VF Postoperative Diagnosis same Operation/Procedure Performed ICD Surgeon see signature line Reed Man TONEY Anesthesia Type: other Estimated Blood Loss: minimal Transfusion none Specimen none Grafts/Implants none Complications none Procedure Description Operative\Procedure NOTE: Procedure performed: Implantation of single-chamber ICD using a MRI compatible [place] device Left subclavian venogram and radiological interpretations Fluoroscopy and supervision Intracardiac electrocardiogram and defibrillator threshold testing. Indication: CHF and severe cardiomyopathy. V. fib cardiac arrest Patinet meets secondary as well as primary indication for ICD placement Anesthesia: Per anesthesiologist Legislative Analyst: Alex Mejia MD Procedure in detail: Written informed consent was obtained after risks benefits and alternatives discussed with the patient and family in detail. Risks including but not limited to risk of infection, bleeding complications, anesthesia related complications, ID, CVA, perforation, pneumothorax hemothorax, etc discussed with pt in detail. Patient was brought into into the Manager Of Transportation and placed in supine position. sedation was given. Right and left chest area was prepped and draped in regular sterile fashion. [] Left subclavian venogram was performed that showed patent subclavian vein and a small cephalic vein. AC groove area was anesthetized using 1% lidocaine with epi. A 4 cm incision was made in the AC g roove area. Blunt dissection was carried out. Cephalic vein was isolated. It was cannulated using a micropuncture needle and an BMW wire was advanced through into the inferior vena cava. Micropuncture sheath was placed over it. BMW wire was removed and a J-wire was advanced through it. Then the micropuncture sheath was removed and a 7 Czech sheath was placed over into the cephalic vein. RV ICD lead was advanced under direct fluoroscopy and placed in the apex. Once a good position was found, threshold was checked which showed excellent threshold. It was screwed into place and threshold were checked again which showed good injury pattern and no diaphragmatic stimulation at 10 V an excellent thresholds. Then the sheath was peeled away. lead was tied down using 0 Ethibond suture. Pocket was irrigated with antibiotic solution. The lead was checked again which showed good thresholds. Then leads were connected into the device. Device was placed into the pocket and sutured using 0 Ethibond suture. At this point if defibrillator threshold testing was performed. First external defibrillator was checked as 1 J. Then through the device patient was induced into V. fib using the method of shock on T. The device appropriately detected the V. fib and successfully cardioverted the patient back into sinus/paced rhythm at 30 J (18 J was unsuccessful). Pocket was irrigated again using antibiotic solution. Wound was closed with 1 layer of 2.0 Vicryl and 2 layers of 3.0 Vicryl. Steri- Strip was applied and pressure dressing was applied. Patient tolerated procedure well with no complication and was transferred to the recovery room in stable condition. Immediate complication: none Please see physical chart for details regarding pacemaker information and t hresholds. Conclusions: Successful implantation of single -chamber ICD and defibrillator threshold testing. ALEX MEJIA MD Jun 11, 2018 14:21
--- NOTE | 2018-06-11 17:05 | PAC ---
Date/Time of Note Date/Time of Note DATE: 06/11/18 TIME: 17:04 Post-Anesthesia Notes Post-Anesthesia Note Last documented vital signs Vital Signs Date Temp Pulse Resp B/P (MAP) Pulse Ox O2 O2 Flow FiO2 Time Delivery Rate 06/11/18 70 16:03 06/11/18 97.7 16 118/68 91 Room Air 15:54 (85) 06/11/18 8.0 14:59 Activity: WNL Respiratory function: WNL Cardiovascular function: WNL Mental status: Baseline Pain reasonably controlled: Yes Hydration appropriate: Yes Nausea/Vomiting absent: Yes MIRELA KING MD Jun 11, 2018 17:05
[2018-06-11] MEDS ORDERED: FUROSEMIDE 20 MG INJ IV ONE (18:30)
[2018-06-11] MEDS: HYDROCODONE/APAP (5/325) TAB PO PRN (18:49)
[2018-06-11] MEDS: CEFAZOLIN 1 GM/50 ML (PMX) 50 ML IVPB SCH (21:44)
[2018-06-11] MEDS: morphine 2 MG INJ IV PRN (23:22)
[2018-06-12] VITALS (11 sets, daily range): BP systolic 105–123; BP diastolic 67–83; PULSE 54–84; RESP 16–20
[2018-06-12] MEDS: morphine 2 MG INJ IV PRN (02:13)
[2018-06-12] MEDS: PANTOPRAZOLE (EC) 40 MG TAB PO SCH (06:45)
[2018-06-12] MEDS: CEFAZOLIN 1 GM/50 ML (PMX) 50 ML IVPB SCH ×2 (06:45→13:43)
[2018-06-12] MEDS: HYDROCODONE/APAP (5/325) TAB PO PRN ×2 (08:49→13:41)
[2018-06-12] MEDS: LISINOPRIL 10 MG TAB PO SCH (08:50)
--- NOTE | 2018-06-12 09:14 | PN ---
Date/Time of Note Date/Time of Note DATE: 06/12/18 TIME: 09:14 Assessment/Plan VTE Prophylaxis Risk score (from Ns)>0 risk: 1 SCD applied (from Ns): No SCD contraindicated: low risk/ambulating Pharmacological prophylaxis: NA/contraindicated, other Pharm contraindication: low risk/ambulating Lines/Catheters IV [facility]from [facility]): Peripheral IV Urinary Cath still in place: No Assessment/Plan Assessment/Plan 1. Severe Cardiomyopathy s/p AICD placement 06/11/18 - Patient tolerated AICD placement yesterday and doing well. Surgical incision site clean and dry - continue antibiotics per Cardiology for infection prevention - Cardiology consultation appreciated - ECHO results noted 2. H/o Cardiopulmonary arrest s/p V. fib arrest - continue digoxin and carvedilol - Most likely secondary to meth use - Cardiology on board and appreciate recommendations 3. Anemia - will need PO replacement upon discharge 4. h/o substance abuse - utox negative 5. Acute systolic and diastolic heart failure - ECHO results with EF 15% 6. tobacco abuse 7. Disposition - Continue current treatment per Cardiology recommendations Result Diagram: 06/11/18 0534 06/11/18 0534 Subjective 24 Hr Interval Summary Free Text/Dictation Patient doing well and denies any acute issues. Resting comfortably and only experiencing pain with movement. No acute overnight events. Exam/Review of Systems Exam Vitals Vital Signs Date Temp Pulse Resp B/P (MAP) Pulse Ox O2 O2 Flow FiO2 Time Delivery Rate 06/12/18 54 08:02 06/12/18 98.7 16 116/71 98 Room Air 07:26 (86) 06/11/18 8.0 14:59 Intake and Output 06/11/18 06/11/18 06/12/18 1414:59 22:59 06:59 IntakeIntake Total 420 ml BalanceBalance 420 ml Exam General: Patient is laying in bed and answers questions appropriately Mentation: Patient is alert and oriented 4 Neck: Supple Chest: steri strips in place left chest wall. no discharge or drainage Respiratory: Clear to auscultation bilaterally. no wheezing Cardiovascular: regular rate and rhythm,, no obvious murmurs Gastrointestinal: soft, non-tender to palpation, bowel sounds heard. Neurological: Moves all extremities spontaneously. no focal deficits appreciated Medications Medication Current Medications Digoxin (Digoxin) 0.125 mg DAILY@13 PO Last administered on 06/10/18 12:36; Admin Dose 0.125 MG; Start 06/10/18 at 13:00 Carvedilol (Coreg) 6.25 mg BID PO Last administered on 06/12/18 08:49; Admin Dose 6.25 MG; Start 06/09/18 at 21:00 IV Flush (NS 3 ml) 3 ml PER PROTOCOL IV ; Start 06/09/18 at 15:00 Ondansetron HCl (Zofran Inj) 4 mg Q6H PRN IV NAUSEA/VOMITING; Start 06/09/18 at 15:00 Nitroglycerin (Nitroglycerin (Sl Tab) 0.4 Mg) 1 tab Q5M PRN SL .CHEST PAIN; Start 06/09/18 at 15:00 Acetaminophen (Tylenol Tab) 650 mg Q6H PRN PO .PAIN 1-3 OR TEMP; Start 06/09/18 at 15:00 Acetaminophen/ Hydrocodone Bitart ([place] (5/325)) 1 tab Q6H PRN PO .PAIN 4-6 Last administered on 06/12/18 08:49; Admin Dose 1 TAB; Start 06/09/18 at 15:00 Docusate Sodium (Colace) 100 mg Q12H PRN PO .CONSTIPATION; Start 06/09/18 at 15:00 Magnesium Hydroxide (Milk Of Mag) 30 ml DAILY PRN PO .CONSTIPATION; Start 06/09/18 at 15:00 Lisinopril (Zestril) 10 mg DAILY PO Last administered on 06/12/18at 08:50; Admin Dose 10 MG; Start 06/10/18 at 09:00 Trazodone HCl (Desyrel) 50 mg HS MAY REPEAT X 1 PRN PO insomnia Last administered on 06/12/18 02:53; Admin Dose 50 MG; Start 06/10/18 at 17:30 Morphine Sulfate (morphine) 1 mg Q1H PRN IV PAIN Last administered on 06/12/18 02:13; Admin Dose 1 MG; Start 06/11/18 at 14:30 Cefazolin Sodium 50 ml @ 100 mls/hr Q8 IVPB Last administered on 06/12/18 06:45; Admin Dose 100 MLS/HR; Start 06/11/18 at 22:00; Stop 06/12/18 at 14:29 Pantoprazole (Protonix Tab) 40 mg DAILY@06 PO Last administered on 06/12/18at 06:45; Admin Dose 40 MG; Start 06/12/18 at 06:00 Morphine Sulfate (morphine) 6 mg Q4H PRN PO .PAIN 7-10; Start 06/11/18 at 17:30 ESTHER TABARES MD Jun 12, 2018 09:14
--- NOTE | 2018-06-12 11:02 | CONS ---
Assessment/Plan Assessment/Plan Assessment/Plan (Daily) Assessment 1. Status post cardiac arrest. 2. Ventricular fibrillation, status post cardioversio, s/p ICD 3. Severe nonischemic cardiomyopathy. 4. History of drug use. 5. Smoker. 6. History of noncompliance. 7. Prolonged QT on the EKG. 8. Congestive heart failure acute on chronic secondary to systolic heart failure Plan: continue beta lucille and COURTNEY Consultation Date/Type/Reason Admit Date/Time Jun 09, 2018 at 13:44 Initial Consult Date 06/10/18 Type of Consult Cardiology Requesting Provider: ESTHER TABARES MD Date/Time of Note DATE: 06/12/18 TIME: 11:01 24 HR Interval Summary Free Text/Dictation fatigued, no distress Detailed Summary Respiratory: no complaints Cardiovascular: no complaints Gastrointestinal: no complaints Musculoskeletal: no complaints Skin: no complaints Neurologic: no complaints Endocrine: no complaints Exam/Review of Systems Vital Signs Vitals Vital Signs Date Temp Pulse Resp B/P (MAP) Pulse Ox O2 O2 Flow FiO2 Time Delivery Rate 06/12/18 54 08:02 06/12/18 98.7 16 116/71 98 Room Air 07:26 (86) 06/11/18 8.0 14:59 Intake and Output 06/11/18 06/11/18 06/12/18 1515:00 23:00 07:00 IntakeIntake Total 420 ml BalanceBalance 420 ml Exam Constitutional: frail Head: normocephalic, atraumatic Neck: supple Respiratory: clear to auscultation Cardiovascular: regular rate and rhythm Gastrointestinal: soft Musculoskeletal: nl extremities to inspection Labs Result Diagram: 06/11/18 0534 06/11/18 0534 Medications Medications Current Medications Digoxin (Digoxin) 0.125 mg DAILY@13 PO Last administered on 06/10/18at 12:36; Admin Dose 0.125 MG; Start 06/10/18 at 13:00 Carvedilol (Coreg) 6.25 mg BID PO Last administered on 06/12/18at 08:49; Admin Dose 6.25 MG; Start 06/09/18 at 21:00 IV Flush (NS 3 ml) 3 ml PER PROTOCOL IV ; Start 06/09/18 at 15:00 Ondansetron HCl (Zofran Inj) 4 mg Q6H PRN IV NAUSEA/VOMITING; Start 06/09/18 at 15:00 Nitroglycerin (Nitroglycerin (Sl Tab) 0.4 Mg) 1 tab Q5M PRN SL .CHEST PAIN; Start 06/09/18 at 15:00 Acetaminophen (Tylenol Tab) 650 mg Q6H PRN PO .PAIN 1-3 OR TEMP; Start 06/09/18 at 15:00 Acetaminophen/ Hydrocodone Bitart ([place] (5/325)) 1 tab Q6H PRN PO .PAIN 4-6 Last administered on 06/12/18at 08:49; Admin Dose 1 TAB; Start 06/09/18 at 15:00 Docusate Sodium (Colace) 100 mg Q12H PRN PO .CONSTIPATION; Start 06/09/18 at 15:00 Magnesium Hydroxide (Milk Of Mag) 30 ml DAILY PRN PO .CONSTIPATION; Start 06/09/18 at 15:00 Lisinopril (Zestril) 10 mg DAILY PO Last administered on 06/12/18at 08:50; Admin Dose 10 MG; Start 06/10/18 at 09:00 Trazodone HCl (Desyrel) 50 mg HS MAY REPEAT X 1 PRN PO insomnia Last administered on 06/12/18 02:53; Admin Dose 50 MG; Start 06/10/18 at 17:30 Morphine Sulfate (morphine) 1 mg Q1H PRN IV PAIN Last administered on 06/12/18at 02:13; Admin Dose 1 MG; Start 06/11/18 at 14:30 Cefazolin Sodium 50 ml @ 100 mls/hr Q8 IVPB Last administered on 06/12/18at 06:45; Admin Dose 100 MLS/HR; Start 06/11/18 at 22:00; Stop 06/12/18 at 14:29 Pantoprazole (Protonix Tab) 40 mg DAILY@06 PO Last administered on 06/12/18at 06:45; Admin Dose 40 MG; Start 06/12/18 at 06:00 Morphine Sulfate (morphine) 6 mg Q4H PRN PO .PAIN 7-10; Start 06/11/18 at 17:30 KAYODE DAILEY MD Jun 12, 2018 11:02
[2018-06-12] MEDS: DIGOXIN 0.125 MG TAB PO SCH (13:42)
[2018-06-12] MEDS: morphine LIQ (10 MG/5 ML) CUP PO PRN (19:03)
[2018-06-13] VITALS (10 sets, daily range): BP systolic 110–122; BP diastolic 70–85; PULSE 64–88; RESP 18–19
[2018-06-13] MEDS: HYDROCODONE/APAP (5/325) TAB PO PRN (00:10)
[2018-06-13] MEDS: morphine 2 MG INJ IV PRN (05:11)
[2018-06-13] MEDS: PANTOPRAZOLE (EC) 40 MG TAB PO SCH (06:06)
[2018-06-13] MEDS: LISINOPRIL 10 MG TAB PO SCH (08:51)
--- NOTE | 2018-06-13 09:13 | PN ---
Date/Time of Note Date/Time of Note DATE: 06/13/18 TIME: 09:13 Assessment/Plan VTE Prophylaxis Risk score (from Ns)>0 risk: 3 SCD applied (from Ns): No SCD contraindicated: low risk/ambulating Pharmacological prophylaxis: NA/contraindicated Pharm contraindication: low risk/ambulating Lines/Catheters [facility] Saline Lock Urinary Cath still in place: No Assessment/Plan Assessment/Plan 1. Severe Cardiomyopathy s/p AICD placement 06/11/18 - Patient instructed to keep arm in sling with he has not been compliant. Surgical incision site clean and dry - completed prophylactic antibiotics - Cardiology consultation appreciated. When cleared from Cardio standpoint, will d/c home - ECHO results noted 2. H/o Cardiopulmonary arrest s/p V. fib arrest - continue digoxin and carvedilol - Most likely secondary to meth use - Cardiology on board and appreciate recommendations 3. Anemia - iron supplement when d/c home 4. h/o substance abuse - utox negative 5. Acute systolic and diastolic heart failure - ECHO results with EF 15% 6. tobacco abuse 7. Disposition - When cleared by Cardiology, will d/c home Result Diagram: 06/11/18 0534 06/11/18 0534 Subjective 24 Hr Interval Summary Free Text/Dictation Patient states hes feeling well and denies any acute issues. Discussed postoperative care but not keeping arm in sling. Encouraged outpatient follow u p as well. No acute overnight events. Exam/Review of Systems Exam Vitals Vital Signs Date Temp Pulse Resp B/P (MAP) Pulse Ox O2 O2 Flow FiO2 Time Delivery Rate 06/13/18 98.2 83 18 121/78 96 Room Air 08:07 (92) 06/11/18 8.0 14:59 Intake and Output 06/12/18 06/12/18 06/13/18 1414:59 22:59 06:59 IntakeIntake Total 600 ml BalanceBalance 600 ml Exam General: Patient is laying in bed and answers questions appropriately Neck: Supple Chest: steri strips in place left chest wall. no discharge or drainage Respiratory: Clear to auscultation bilaterally. no wheezing Cardiovascular: regular rate and rhythm,, no obvious murmurs Gastrointestinal: soft, non-tender to palpation, bowel sounds heard. Medications Medication Current Medications Digoxin (Digoxin) 0.125 mg DAILY@13 PO Last administered on 06/12/18at 13:42; A dmin Dose 0.125 MG; Start 06/10/18 at 13:00 Carvedilol (Coreg) 6.25 mg BID PO Last administered on 06/13/18 08:51; Admin Dose 6.25 MG; Start 06/09/18 at 21:00 IV Flush (NS 3 ml) 3 ml PER PROTOCOL IV ; Start 06/09/18 at 15:00 Ondansetron HCl (Zofran Inj) 4 mg Q6H PRN IV NAUSEA/VOMITING; Start 06/09/18 at 15:00 Nitroglycerin (Nitroglycerin (Sl Tab) 0.4 Mg) 1 tab Q5M PRN SL .CHEST PAIN; Start 06/09/18 at 15:00 Acetaminophen (Tylenol Tab) 650 mg Q6H PRN PO .PAIN 1-3 OR TEMP; Start 06/09/18 at 15:00 Acetaminophen/ Hydrocodone Bitart ([place] (5/325)) 1 tab Q6H PRN PO .PAIN 4-6 Last administered on 06/13/18at 00:10; Admin Dose 1 TAB; Start 06/09/18 at 15:00 Docusate Sodium (Colace) 100 mg Q12H PRN PO .CONSTIPATION; Start 06/09/18 at 15:00 Magnesium Hydroxide (Milk Of Mag) 30 ml DAILY PRN PO .CONSTIPATION; Start 06/09/18 at 15:00 Lisinopril (Zestril) 10 mg DAILY PO Last administered on 06/13/18at 08:51; Admin Dose 10 MG; Start 06/10/18 at 09:00 Trazodone HCl (Desyrel) 50 mg HS MAY REPEAT X 1 PRN PO insomnia Last administered on 06/12/18 02:53; Admin Dose 50 MG; Start 06/10/18 at 17:30 Morphine Sulfate (morphine) 1 mg Q1H PRN IV PAIN Last administered on 06/13/18 05:11; Admin Dose 1 MG; Start 06/11/18 at 14:30 Pantoprazole (Protonix Tab) 40 mg DAILY@06 PO Last administered on 06/13/18 06:06; Admin Dose 40 MG; Start 06/12/18 at 06:00 Morphine Sulfate (morphine) 6 mg Q4H PRN PO .PAIN 7-10 Last administered on 06/12/18at 19:03; Admin Dose 6 MG; Start 06/11/18 at 17:30 ESTHER TABARES MD Jun 13, 2018 09:13
[2018-06-13] MEDS ORDERED: FERR325T5 PO (11:18)
[2018-06-13] MEDS ORDERED: FURO40TA4 PO (11:18)
[2018-06-13] MEDS ORDERED: CARV6.2579 PO (11:18)
[2018-06-13] MEDS ORDERED: DIGO125T PO (11:18)
[2018-06-13] MEDS ORDERED: LISI10TA2 PO (11:18)
--- NOTE | 2018-06-13 11:24 | PDOCDIS ---
Discharge Instructions DIAGNOSIS Discharge Diagnosis 1. Severe Cardiomyopathy s/p AICD placement 06/11/18 2. H/o Cardiopulmonary arrest s/p V. fib arrest 3. Iron deficiency anemia 4. h/o substance abuse 5. Acute systolic and diastolic heart failure-stable 6. tobacco abuse CONDITION [id number] Patient Condition: [id number] Stable HOME CARE INSTRUCTIONS: [id number] Diet Instructions: [id number] Low Fat /Cholesterol ACTIVITY: [id number] Activity Restrictions: [id number] No Restrictions FOLLOW UP/APPOINTMENTS Follow-up Plan 1. Call Dr. Javi Walls's office in order to make an appointment as soon as possible to establish care 2. Call Dr. Mejia's office in order to schedule a follow up after AICD placement. Its important to keep your arm in a slings for 3 weeks 3. Take all medications as prescribed. You will need to continue on Digoxin daily, Lisinopril daily, and Coreg twice a day. Take Lasix only when experiencing lower extremity swelling or feel as if you are gaining weight due to fluid retention 4. if experiencing any concerning symptoms, please go to your nearest emergency department REFERRALS Other Referrals Javi Walls MD Specialty: Internal Medicine Office Address [address] [place] [address] Office Jarek Mejia MD Specialty: Cardiology Office Address [address] [place] [address] Office ESTHER TABARES MD Jun 13, 2018 11:24
[2018-06-13] MEDS: DIGOXIN 0.125 MG TAB PO SCH (13:21)
--- NOTE | 2018-06-13 14:00 | CONS ---
Assessment/Plan Cardiology NYHA: II Heart Failure Type: Acute on Chronic Heart Failure Type: Systolic Assessment/Plan Hospital Course (Demo Recall) Coverage for Dr. Mejia 1. Status post cardiac arrest. 2. Ventricular fibrillation, status post cardioversion. 3. Severe nonischemic cardiomyopathy. 4. History of drug use. 5. Smoker. 6. History of noncompliance. 7. Prolonged QT on the EKG. 8. Congestive heart failure acute on chronic secondary to systolic heart failur e -ICD site with no significant abnormalities -Continue beta-lucille, COURTNEY inhibitor -Diuretics as needed -DC planning Consultation Date/Type/Reason Admit Date/Time Jun 09, 2018 at 13:44 Initial Consult Date 06/10/18 Type of Consult Cardiology Requesting Provider: ESTHER TABARES MD Date/Time of Note DATE: 06/13/18 TIME: 13:58 24 HR Interval Summary Free Text/Dictation No shortness of breath, palpitations or chest discomfort Exam/Review of Systems Vital Signs Vitals Vital Signs Date Temp Pulse Resp B/P (MAP) Pulse Ox O2 O2 Flow FiO2 Time Delivery Rate 06/13/18 86 12:00 06/13/18 98.2 18 122/85 99 Room Air 11:18 (97) 06/11/18 8.0 14:59 Intake and Output 06/12/18 06/12/18 06/13/18 1515:00 23:00 07:00 IntakeIntake Total 600 ml BalanceBalance 600 ml Exam Constitutional: alert, oriented (No apparent distress) Respiratory: other (Coarse breath sounds bilaterally, no wheezing) Cardiovascular: regular rate and rhythm (S1-S2 heard) Gastrointestinal: soft, non-tender, bowel sounds Extremities: other (No edema) Additional Comments ICD pocket site left upper chest wall, no drainage from incision, no erythema Labs Result Diagram: 06/11/18 0534 06/11/18 0534 Medications Medications Current Medications Digoxin (Digoxin) 0.125 mg DAILY@13 PO Last administered on 06/13/18at 13:21; Admin Dose 0.125 MG; Start 06/10/18 at 13:00 Carvedilol (Coreg) 6.25 mg BID PO Last administered on 06/13/18at 08:51; Admin Dose 6.25 MG; Start 06/09/18 at 21:00 IV Flush (NS 3 ml) 3 ml PER PROTOCOL IV ; Start 06/09/18 at 15:00 Ondansetron HCl (Zofran Inj) 4 mg Q6H PRN IV NAUSEA/VOMITING; Start 06/09/18 at 15:00 Nitroglycerin (Nitroglycerin (Sl Tab) 0.4 Mg) 1 tab Q5M PRN SL .CHEST PAIN; Start 06/09/18 at 15:00 Acetaminophen (Tylenol Tab) 650 mg Q6H PRN PO .PAIN 1-3 OR TEMP; Start 06/09/18 at 15:00 Acetaminophen/ Hydrocodone Bitart ([place] (5/325)) 1 tab Q6H PRN PO .PAIN 4-6 Last administered on 06/13/18at 00:10; Admin Dose 1 TAB; Start 06/09/18 at 15:00 Docusate Sodium (Colace) 100 mg Q12H PRN PO .CONSTIPATION; Start 06/09/18 at 15:00 Magnesium Hydroxide (Milk Of Mag) 30 ml DAILY PRN PO .CONSTIPATION; Start 06/09/18 at 15:00 Lisinopril (Zestril) 10 mg DAILY PO Last administered on 06/13/18at 08:51; Admin Dose 10 MG; Start 06/10/18 at 09:00 Trazodone HCl (Desyrel) 50 mg HS MAY REPEAT X 1 PRN PO insomnia Last administered on 06/12/18at 02:53; Admin Dose 50 MG; Start 06/10/18 at 17:30 Morphine Sulfate (morphine) 1 mg Q1H PRN IV PAIN Last administered on 06/13/18at 05:11; Admin Dose 1 MG; Start 06/11/18 at 14:30 Pantoprazole (Protonix Tab) 40 mg DAILY@06 PO Last administered on 06/13/18 06:06; Admin Dose 40 MG; Start 06/12/18 at 06:00 Morphine Sulfate (morphine) 6 mg Q4H PRN PO .PAIN 7-10 Last administered on 06/12/18at 19:03; Admin Dose 6 MG; Start 06/11/18 at 17:30 Noah Lozano DO Jun 13, 2018 14:00
--- NOTE | 2018-06-13 15:50 | DS ---
Date/Time of Note Date/Time of Note DATE: 06/13/18 TIME: 15:47 Discharge Summary Admission/Discharge Info Admit Date/Time Jun 09, 2018 at 13:44 Discharge Date/Time 06/13/18 Discharge Diagnosis 1. Severe Cardiomyopathy s/p AICD placement 06/11/18 2. H/o Cardiopulmonary arrest s/p V. fib arrest 3. Iron deficiency anemia 4. h/o substance abuse 5. Acute systolic and diastolic heart failure-stable 6. tobacco abuse Patient Condition: Stable Consults Cardiology- Dr. Mejia Procedures 06/11/18 Procedure performed: Implantation of single-chamber ICD using a MRI compatible [place] device Left subclavian venogram and radiological interpretations Fluoroscopy and supervision Intracardiac electrocardiogram and defibrillator threshold testing. Hx of Present Illness 42 yo M with PMH Vfib arrest, severe CM, Illicit drug use, and tobacco abuse presented to ED after leaving AMA twice today for reevaluation for chest pain and shortness of breath. Patient states he left this am after finding out he wasn't going to have the AICD placed until Thursday. He reports when he talks for long periods of time he starts to cough with associated chest pain. He saw his brothers following leaving the ED this am and had a discussion. He returned to the ED for AICD placement. Patient admits to shortness of breath and chest discomfort with prolonged talking but denies any chest pain, nausea, vomiting, dizziness, abdominal issues, or urinary issues when at rest. Hospital Course Patient was admitted for placement given recent cardiac arrest secondary to Vfib. Patient had AICD placed on 06/11/18 without any issues. He completed 3 doses of antibiotics and AICD was function properly after interrogation. Patient did not have any complications and pain was controlled. Patient was cleared by Cardiology for discharge and discussed post operative management. Patient remained stable during hospital course. Vitals and physical exam remained stable and patient was discharged home in good condition. Home Meds Active Scripts Ferrous Sulfate (Ferrous Sulfate) 325 Mg Tablet., 325 MG PO DAILY for 30 Days, #30 TAB 6 Refills Prov:ESTHER TABARES MD 06/13/18 Digoxin* (Digitek*) 125 Mcg Tablet, 0.125 MG PO DAILY@13 for 30 Days, #30 TAB 6 Refills Prov:ESTHER TABARES MD 06/13/18 Carvedilol* (Carvedilol*) 6.25 Mg Tablet, 6.25 MG PO BID for 30 Days, #60 TAB 6 Refills Prov:ESTHER TABARES MD 06/13/18 Furosemide* (Furosemide*) 40 Mg Tablet, 40 MG PO DAILY PRN for swelling of lower extremities for 30 Days, #30 TAB 6 Refills Prov:ESTHER TABARES MD 06/13/18 Lisinopril* (Lisinopril*) 10 Mg Tablet, 10 MG PO DAILY for 30 Days, #30 TAB Prov:ESTHER TABARES MD 06/13/18 Discontinued Reported Medications Aspirin* (Aspirin* EC) 81 Mg Tablet., 81 MG PO DAILY, TAB 06/05/18 Spironolactone* (Aldactone*) 25 Mg Tablet, 25 MG PO DAILY, #30 TAB 06/05/18 Follow-up Plan 1. Call Dr. Javi Walls's office in order to make an appointment as soon as possible to establish care 2. Call Dr. Mejia's office in order to schedule a follow up after AICD placement. Its important to keep your arm in a slings for 3 weeks 3. Take all medications as prescribed. You will need to continue on Digoxin daily, Lisinopril daily, and Coreg twice a day. Take Lasix only when experiencing lower extremity swelling or feel as if you are gaining weight due to fluid retention 4. if experiencing any concerning symptoms, please go to your nearest emergency department Primary Care Provider [facility] Time spent on discharge: > 30 minutes ESTHER TABARES MD Jun 13, 2018 15:50
[2018-06-13] MEDS: morphine LIQ (10 MG/5 ML) CUP PO PRN (16:01)
== END 2018-06-13 17:06 | disposition home or self-care (01) | DRG 245 ==
LOC: E/R 13:29 → TEL 13:44
PROVIDERS: ADMIT Internal Medicine; ATTEND Internal Medicine
PROC: 0JH608Z Insertion of Defibrillator Generator into Chest Subcutaneous Tissue and Fascia, Open Approach (ICD-10-PCS; principal; 2018-06-11)
PROC: 0JH60PZ Insertion of Cardiac Rhythm Related Device into Chest Subcutaneous Tissue and Fascia, Open Approach (ICD-10-PCS; 2018-06-11)
DX: I42.9 Cardiomyopathy, unspecified (principal); I50.41 Acute combined systolic (congestive) and diastolic (congestive) heart failure; D50.9 Iron deficiency anemia, unspecified; F17.200 Nicotine dependence, unspecified, uncomplicated; Z86.74 Personal history of sudden cardiac arrest
CPT/HCPCS: 33249; 71045; 80053; 80162; 80307; 83735; 83880; 85025; 85610; 93005; C1722; C1895; C9113; J0690; J1940; J2250; J2270; J3010; J7030; J7042; Q9967

== ENCOUNTER 2018-06-15 08:40 | Emergency (ER) | payer SELFPAY ==
[~2018-06-15] VITALS: Ht 165.1 cm; Wt 68.3 kg
[~2018-06-15 08:40] MED LIST changes: -ASPI-817 PO; +CARV6.2579 PO; +DIGO125T PO; +FERR325T5 PO; -SPIR25TA PO
[2018-06-15 08:44] VITALS: BP 164/86; PULSE 102; RESP 16; Ht 165.1 cm; Wt 68.3 kg
== END 2018-06-15 10:54 | disposition left against medical advice (07) ==
LOC: E/R 08:40
DX: Z53.21 Procedure and treatment not carried out due to patient leaving prior to being seen by health care provider (principal)

== ENCOUNTER 2018-06-15 14:43 | Inpatient (IN) | payer OTHER ==
[~2018-06-15] VITALS: Ht 162.6 cm; Wt 67.0 kg
[2018-06-15 15:12] VITALS: Ht 162.6 cm; Wt 67.0 kg
[2018-06-15] MEDS ORDERED: SODIUM CHLORIDE 0.9% 1L BAG IV* STA (15:20)
[2018-06-15] MEDS ORDERED: ACETAMINOPHEN 325 MG TAB PO ONE (15:30)
[2018-06-15] MEDS ORDERED: CEFTRIAXONE 1 GM/50 ML (PMX) 50 ML IVPB ONE (18:30)
[2018-06-15] MEDS ORDERED: hydrALAzine 20 MG INJ IV PRN (19:00)
[2018-06-15] MEDS ORDERED: morphine 2 MG INJ IV PRN (19:00)
[2018-06-15] MEDS ORDERED: ACETAMINOPHEN 325 MG TAB PO PRN (19:00)
[2018-06-15] MEDS ORDERED: NACL 0.9% 3 ML SYG IV SCH (19:00)
[2018-06-15] MEDS ORDERED: ONDANSETRON 4 MG INJ IV PRN (19:00)
[2018-06-15] MEDS ORDERED: LORAZEPAM 2 MG INJ IV PRN (19:00)
[2018-06-15] MEDS ORDERED: HYDROCODONE/APAP (5/325) TAB PO PRN (19:00)
[2018-06-15] MEDS ORDERED: VANCOMYCIN IV PER PHARMACY XX SCH (19:00)
[2018-06-15] MEDS ORDERED: MAGNESIUM HYDROXIDE 30ML CUP PO PRN (19:00)
[2018-06-15] MEDS ORDERED: NITROGLYCERIN (SL) 0.4 MG TAB SL PRN (19:00)
[2018-06-15] MEDS ORDERED: ALBUTEROL/IPRATROPIUM (NEB) 3 ML AMP HHN PRN (19:00)
[2018-06-15] MEDS ORDERED: DOCUSATE SODIUM 100 MG CAP PO PRN (19:00)
[2018-06-15] MEDS ORDERED: FUROSEMIDE 40 MG TAB PO PRN (19:00)
[2018-06-15] MEDS ORDERED: ZOLPIDEM 5 MG TAB PO PRN (20:00)
--- NOTE | 2018-06-15 20:18 | HP ---
DATE OF ADMISSION: 06/15/2018 IDENTIFICATION: This is a 42-year-old male. CHIEF COMPLAINT: Cough and chest pain. HISTORY OF PRESENT ILLNESS: A 42-year-old male with past medical history of severe cardiomyopathy, s moking history, recent cardiac arrest, IV drug abuse, recent AICD placement for severe cardiomyopathy , and advanced congestive heart failure who comes in after experiencing cough and chest pain for the last 3 days. The patient denies any upper or lower GI bleeding, no nausea or vomiting, no diarrhea o r constipation, but he has been having some subjective fevers at home; and when he came in today, he was found with a temperature of 101.4. He was given antibiotic in the ER, he had a chest x-ray perfo rmed that showed cardiomegaly and left chest pulse generator with intact leads. The patient's white blood cell count was normal, however. The patient was recently hospitalized here at our hospital fro 06/09/2018 to 06/13/2018. At that time, he was treated first, again as mentioned above, severe car diomyopathy with an AICD placement on 06/11/2018. The patient denies any oozing or discharge from hi s surgical incision site of his AICD. PAST MEDICAL HISTORY: As stated above. ALLERGIES: NO KNOWN DRUG ALLERGIES. MEDICATIONS AT HOME: 1. Ferrous sulfate 325 mg daily. 2. Coreg 6.25 mg b.i.d. 3. Digoxin 0.125 mg daily. 4. Lisinopril 10 mg daily. 5. Furosemide 40 mg daily p.r.n. PAST SURGICAL HISTORY: Again, he had the recent AICD placement on 06/11/2018. SOCIAL HISTORY: Again, positive smoking history, positive history of drug abuse. PHYSICAL EXAMINATION: VITAL SIGNS: T-max 101.4, pulse 103 to 109, respirations 15 to 26, blood pressure 119 to 136 systoli c over 89 to 76 diastolic, sating at 100% on room air. GENERAL: The patient is lying in bed, answering questions appropriately. No acute distress. HEENT: Pupils equal, round, react to light, intact. NECK: Supple, no thyromegaly. CHEST: The left upper chest area where the incision was made for AICD placement, appears to be clean , dry and intact. There are still Steri-Strips in place. CARDIOVASCULAR: S1, S2 heard. No rubs or gallops. LUNGS: Clear to auscultation bilaterally. ABDOMEN: Soft, nontender, nondistended. Normal bowel sounds. No rebound or guarding. MUSCULOSKELETAL: No lower extremity edema bilaterally. NEUROLOGIC: No focal deficits. LABORATORIES: CBC is normal. The comprehensive metabolic panel is normal. Troponin is negative x1. Lactic acid is 1.8. Coags are normal. We mentioned the chest x-ray findings. ASSESSMENT AND PLAN: A 42-year-old male coming in with fever and chest pain and cough for 3 days wit h a recent AICD placement performed on 06/11/2018 on his last admission signs of systemic inflammator y response syndrome. 1. Systemic inflammatory response syndrome, possible source of possible infection could be the surgi heather incision site where he had the AICD placed on 06/11/2018. Admit the patient, put on broad spectr um antibiotics. We will get cardiology and infectious disease consult. Follow up culture results. Tylenol p.r.n. pain and fevers. Check TSH, A1c, and lipid panel. 2. Smoking history. Counseled on cessation. Add nicotine patch. 3. History of IV drug abuse. Counseled on cessation of that. 4. History of severe cardiomyopathy with ____ AICD placement. Again, continue current cardiac medic ations. We will obtain cardiology consult. Dictated By: VENKATA JOLLEY Conf#: [id number] DID#: [id number]
[2018-06-15 20:40] VITALS: BP 118/78; PULSE 113; RESP 19
[2018-06-15 20:47] VITALS: PULSE 108
[2018-06-15] MEDS ORDERED: NICOTINE (14 MG/24 HR) PATCH TRANSDERM SCH (21:30)
[2018-06-15] MEDS: SOD CHLORIDE 0.45% 1,000 ML IV SCH (22:04)
[2018-06-15] MEDS: CEPASTAT LOZENGE MT PRN (22:06)
[2018-06-15] MEDS ORDERED: VANCOMYCIN HCL 1.25 GM in SOD CHLORIDE 0.9% 250 ML IVPB SCH (22:30)
[2018-06-15 23:53] VITALS: BP 124/67; PULSE 98; RESP 20
[2018-06-15] MEDS: PIPER-TAZO 3.375 GM IV (PMX) 100 ML IVPB SCH (23:55)
[2018-06-16] VITALS: PULSE 99
[2018-06-16 04:00] VITALS: BP 125/76; PULSE 76; PULSE 82; RESP 19
[2018-06-16] MEDS: CEPASTAT LOZENGE MT PRN (04:41)
[2018-06-16] MEDS: PIPER-TAZO 3.375 GM IV (PMX) 100 ML IVPB SCH (06:05)
[2018-06-16 07:13] VITALS: BP 102/59; PULSE 88; RESP 20
[2018-06-16 08:16] VITALS: PULSE 88
[2018-06-16] MEDS: SOD CHLORIDE 0.45% 1,000 ML IV SCH (08:35)
--- NOTE | 2018-06-16 08:51 | CONS ---
Assessment/Plan Assessment/Plan Hospital Course (Demo Recall) 1. Status post VF, cardiac arrest. S/P ICD 2. Fever: Rule out bacteremia. Due to the recent ICD and patient noncompliant there is a concern about the infection. Pocket so far does not appear to have any signs of infection from outside. 3. Severe nonischemic cardiomyopathy. 4. History of drug use. 5. Smoker. 6. noncompliance. 7. Congestive heart failure chronic secondary systolic heart failure appears to be stable at this point despite his noncompliance RECOMMENDATIONS: Electrolytes including potassium and magnesium will be replaced as needed. Try to keep the potassium more than 4 and magnesium more than 2. Continue with digoxin carvedilol lisinopril Antibiotic management as per internal medicine and ID recommendation. We will check echocardiogram Thank you for his referral. We will continue to follow along with you ALEX OLSEN MD [facility] Consultation Date/Type/Reason Admit Date/Time Jun 15, 2018 at 20:14 Date of Consultation: Jun 16, 2018 Type of Consult Cardiology Reason for Consultation CHF Requesting Provider: VENKATA MENDOZA Date/Time of Note DATE: 06/16/18 TIME: 08:43 Hx of Present Illness Interventional cardiology consultation note Chief complaint: Fever chest pain with coughing cough Reason for consult: Status post ICD congestive heart failure cardiomyopathy History of present illness: Thank you for this referral. History obtained from the patient review of the old chart This is a 42-year-old gentleman with history of V. fib cardiac arrest severe cardiomyopathy ejection fraction of 15% noncompliance and drug use who was recently admitted to the hospital after a V. fib cardiac arrest. Patient had multiple times signed out AGAINST MEDICAL ADVICE and came back to the hospital. He finally had a ICD placed before the discharge last week. 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 He came back to the hospital last night because he was having shortness of breath and he was having chest wall pain mostly when he was coughing and was also noted to have a fever. He has been admitted for further workup. Allergies: No known drug allergies Medications: Patient was discharged on multiple medications including Keflex antibiotic but he stated he went to the pharmacy and his insurance was not approved so he did not take any of his medications since he left the hospital Family history: Denies any early coronary artery disease to me Social history: Active smoker. Use drug including met. Denies heavy alcohol use Past medical history: V. fib cardiac arrest in May 2018 severe nonischemic cardiomyopathy ejection fracture of about 15% Past surgical history: Coronary angiography done May 2018 shows no significant obstructive coronary artery disease. ICD placed last week using a [employer] device Review of system: Patient denies all others except for above-mentioned Past Medical History Home Meds Active Scripts Ferrous Sulfate (Ferrous Sulfate) 325 Mg Tablet., 325 MG PO DAILY for 30 Days, #30 TAB 6 Refills Prov:ESTHER TABARES MD 06/13/18 Digoxin* (Digitek*) 125 Mcg Tablet, 0.125 MG PO DAILY@13 for 30 Days, #30 TAB 6 Refills Prov:ESTHER TABARES MD 06/13/18 Carvedilol* (Carvedilol*) 6.25 Mg Tablet, 6.25 MG PO BID for 30 Days, #60 TAB 6 Refills Prov:ESTHER TABARES MD 06/13/18 Furosemide* (Furosemide*) 40 Mg Tablet, 40 MG PO DAILY PRN for swelling of lower extremities for 30 Days, #30 TAB 6 Refills Prov:ESTHER TABARES MD 06/13/18 Lisinopril* (Lisinopril*) 10 Mg Tablet, 10 MG PO DAILY for 30 Days, #30 TAB Prov:ESTHER TABARES MD 06/13/18 Discontinued Reported Medications Aspirin* (Aspirin* EC) 81 Mg Tablet., 81 MG PO DAILY, TAB 06/05/18 Spironolactone* (Aldactone*) 25 Mg Tablet, 25 MG PO DAILY, #30 TAB 06/05/18 Medications Current Medications IV Flush (NS 3 ml) 3 ml PER PROTOCOL IV ; Start 06/15/18 at 19:00 Ondansetron HCl (Zofran Inj) 4 mg Q6H PRN IV NAUSEA/VOMITING; Start 06/15/18 at 19:00 Acetaminophen (Tylenol Tab) 650 mg Q6H PRN PO .PAIN 1-3 OR TEMP Last administered on 06/15/18at 23:58; Admin Dose 650 MG; Start 06/15/18 at 19:00 Acetaminophen/ Hydrocodone Bitart ([place] (5/325)) 1 tab Q6H PRN PO .MOD PAIN 4- 6 Last administered on 06/15/18at 22:05; Admin Dose 1 TAB; Start 06/15/18 at 19:00 Morphine Sulfate (morphine) 2 mg Q4H PRN IV .SEVERE PAIN 7-10; Start 06/15/18 at 19:00 Docusate Sodium (Colace) 100 mg Q12H PRN PO .CONSTIPATION; Start 06/15/18 at 19:00 Magnesium Hydroxide (Milk Of Mag) 30 ml DAILY PRN PO .CONSTIPATION; Start 06/15/18 at 19:00 Sodium Chloride 1,000 ml @ 75 mls/hr [id number] IV Last administered on 06/16/18at 08:35; Admin Dose 75 MLS/HR; Start 06/15/18 at 22:00 Lorazepam (Ativan) 0.5 mg Q6H PRN IV ANXIETY; Start 06/15/18 at 19:00 Albuterol/ Ipratropium (Duoneb) 3 ml Q4H RESP THERAPY PRN HHN SHORTNESS OF BREATH Last administered on 06/15/18at 21:39; Admin Dose 3 ML; Start 06/15/18 at 19:00 Piperacillin Sod/ Tazobactam Sod 100 ml @ 200 mls/hr Q6 IVPB Last administered on 06/16/18at 06:05; Admin Dose 200 MLS/HR; Start 06/16/18 at 00:00 Vancomycin HCl (Vanco Iv Per Pharmacy) VANCOMYCIN PER PHARMACY NOTE XX ; Start 06/15/18 at 19:00 Hydralazine HCl (Apresoline) 10 mg Q6H PRN IV ELEVATED BLOOD PRESSURE; Start 06/15/18 at 19:00 Nitroglycerin (Nitroglycerin (Sl Tab) 0.4 Mg) 1 tab Q5M PRN SL ANGINA; Start 06/15/18 at 19:00 Carvedilol (Coreg) 6.25 mg BID PO Last administered on 06/16/18at 08:35; Admin Dose 6.25 MG; Start 06/15/18 at 22:00 Digoxin (Digoxin) 0.125 mg DAILY@13 PO ; Start 06/16/18 at 13:00 Furosemide (Lasix) 40 mg DAILY PRN PO swelling of lower extremities; Start 06/15/18 at 19:00 Lisinopril (Zestril) 10 mg DAILY PO Last administered on 06/16/18at 08:34; Admin Dose 10 MG; Start 06/16/18 at 09:00 Ferrous Gluconate (Fergon) 325 mg DAILY PO ; Start 06/16/18 at 09:00 Zolpidem Tartrate (Ambien) 2.5 mg HS PRN PO INSOMNIA; Start 06/15/18 at 20:00 Nicotine (Nicoderm 14 Mg/ 24hr) 1 patch QHS TRANSDERM Last administered on 06/15/18at 22:03; Admin Dose 1 PATCH; Start 06/15/18 at 21:30 Phenol (Cepastat Lozenge) 1 lozenge Q1H PRN MT COUGH Last administered on 06/16/18at 04:41; Admin Dose 1 LOZENGE; Start 06/15/18 at 20:00 Vancomycin HCl 250 ml @ 125 mls/hr Q12H IVPB ; Start 06/16/18 at 12:00 Allergies: Coded Allergies: No Known Allergy (Unverified , 06/15/18) Past Surgical History Past Surgical Hx: other Social History Smoking Status: Current every day smoker Exam/Review of Systems Vital Signs Vitals Vital Signs Date Temp Pulse Resp B/P (MAP) Pulse Ox O2 O2 Flow FiO2 Time Delivery Rate 06/16/18 88 08:16 06/16/18 100.9 20 102/59 98 07:13 (73) 06/16/18 Room Air 04:00 06/15/18 21 21:43 06/15/18 2.0 18:47 Intake and Output 06/15/18 06/15/18 06/16/18 1515:00 23:00 07:00 IntakeIntake Total 350 ml OutputOutput Total 2 ml BalanceBalance 348 ml Exam Exam General: no acute distress HEENT: NC/AT. pupils are equal. round. NECK: NO JVD. no stridor. CV: RRR. systolic murmur; no gallop or rubs. PULM: no wheezing or rhonchi. GI: SOFT, NT, ND, no rebound or guarding Extremity: trace B/L LE edema. no clubbing. neuro: awake and alert, OX3. Psych: calm and pleasant rectal: deferred EKG shows normal sinus rhythm. Anteroseptal infarct. QRS is 110 Labs Result Diagram: 06/16/18 0645 06/16/18 0645 Results 24hrs Laboratory Tests Test 06/15/18 15:27 06/15/18 15:30 06/15/18 18:06 06/15/18 21:05 White Blood Count 6.4 # Red Blood Count 4.75 Hemoglobin 11.0 L Hematocrit 35.6 L Mean Corpuscular 74.9 L Volume Mean Corpuscular 23.2 L Hemoglobin Mean Corpuscular 30.9 L Hemoglobin Concent Red Cell 18.3 H Distribution Width Platelet Count 367 Mean Platelet 8.6 Volume Immature 0.300 Granulocytes % Neutrophils % Segmented 69 Neutrophils % (Manual) Band Neutrophils % 5 H (Manual) Lymphocytes % Lymphocytes % 9 L (Manual) Reactive 1 H Lymphocytes % (Manual) Monocytes % Monocytes % 14 H (Manual) Eosinophils % Basophils % Basophils % 2 (Manual) Nucleated Red Blood 0.0 Cells % Immature 0.020 Granulocytes # Neutrophils # Neutrophils # 4.4 (Manual) Band Neutrophils # 0.3 Lymphocytes 0.5 L (Manual) Lymphocytes # Reactive 0.0 Lymphocytes # Monocytes # Monocytes # 0.8 (Manual) Eosinophils # Basophils # Basophils # 0.1 H (Manual) Nucleated Red Blood Cells # Platelet Estimate NORMAL Polychromasia 1+ Hypochromasia 1+ Poikilocytosis 1+ Anisocytosis 2+ Microcytosis 2+ Prothrombin Time 14.0 Prothrombin Time 1.1 Ratio INR International 1.07 Normalized Ratio Activated 30.8 Partial Thromboplas t Time Sodium Level 138 Potassium Level 4.4 Chloride Level 97 Carbon Dioxide 27 Level Anion Gap 14 H Blood Urea Nitrogen 15 Creatinine 1.03 Est Glomerular > 60 Filtrat Rate mL/min Glucose Level 92 Calcium Level 9.3 Total Bilirubin 0.7 Direct Bilirubin 0.00 Indirect Bilirubin 0.7 Aspartate Amino 38 Transf (AST/SGOT) Alanine 40 Aminotransferase (A LT/SGPT) Alkaline 115 Phosphatase Troponin I 0.050 Total Protein 8.0 Albumin 4.4 Globulin 3.60 H Albumin/Globulin 1.22 Ratio Free Thyroxine 0.99 POC Venous Lactate 1.8 Bedside Urine pH 5.5 (LAB) Bedside Urine 1+ H Protein (LAB) Bedside Urine Negative Glucose (UA) Bedside Urine Negative Ketones (LAB) Bedside Urine Blood Trace-lysed H Bedside Urine Negative Nitrite (LAB) Bedside Urine Negative Leukocyte Esterase (L Lactic Acid Level 1.0 Test 06/16/18 00:42 06/16/18 02:27 06/16/18 06:43 06/16/18 06:45 Lactic Acid Level 0.7 1.1 1.2 White Blood Count 6.5 Red Blood Count 4.72 Hemoglobin 10.8 L Hematocrit 35.6 L Mean Corpuscular 75.4 L Volume Mean Corpuscular 22.9 L Hemoglobin Mean Corpuscular 30.3 L Hemoglobin Concent Red Cell 18.4 H Distribution Width Platelet Count 336 Mean Platelet 9.3 Volume Immature 0.500 H Granulocytes % Neutrophils % 60.8 Lymphocytes % 19.9 Monocytes % 17.6 H Eosinophils % 0.3 Basophils % 0.9 Nucleated Red Blood 0.0 Cells % Immature 0.030 Granulocytes # Neutrophils # 3.9 Lymphocytes # 1.3 Monocytes # 1.1 H Eosinophils # 0.0 Basophils # 0.1 Nucleated Red Blood 0.0 Cells # Sodium Level 137 Potassium Level 4.2 Chloride Level 102 Carbon Dioxide 26 Level Anion Gap 9 # Blood Urea Nitrogen 16 Creatinine 1.09 Est Glomerular > 60 Filtrat Rate mL/min Glucose Level 88 Hemoglobin A1c 5.8 Calcium Level 8.5 Phosphorus Level 4.5 Magnesium Level 2.0 Triglycerides Level 70 Cholesterol Level 124 LDL Cholesterol, 89 Calculated HDL Cholesterol 21 L Cholesterol/HDL 5.9 Ratio Thyroid Stimulating 0.834 Hormone (TSH) Medications Medications Current Medications IV Flush (NS 3 ml) 3 ml PER PROTOCOL IV ; Start 06/15/18 at 19:00 Ondansetron HCl (Zofran Inj) 4 mg Q6H PRN IV NAUSEA/VOMITING; Start 06/15/18 at 19:00 Acetaminophen (Tylenol Tab) 650 mg Q6H PRN PO .PAIN 1-3 OR TEMP Last administered on 06/15/18at 23:58; Admin Dose 650 MG; Start 06/15/18 at 19:00 Acetaminophen/ Hydrocodone Bitart ([place] (5/325)) 1 tab Q6H PRN PO .MOD PAIN 4- 6 Last administered on 06/15/18at 22:05; Admin Dose 1 TAB; Start 06/15/18 at 19:00 Morphine Sulfate (morphine) 2 mg Q4H PRN IV .SEVERE PAIN 7-10; Start 06/15/18 at 19:00 Docusate Sodium (Colace) 100 mg Q12H PRN PO .CONSTIPATION; Start 06/15/18 at 19:00 Magnesium Hydroxide (Milk Of Mag) 30 ml DAILY PRN PO .CONSTIPATION; Start 06/15/18 at 19:00 Sodium Chloride 1,000 ml @ 75 mls/hr [id number] IV Last administered on 06/16/18at 08:35; Admin Dose 75 MLS/HR; Start 06/15/18 at 22:00 Lorazepam (Ativan) 0.5 mg Q6H PRN IV ANXIETY; Start 06/15/18 at 19:00 Albuterol/ Ipratropium (Duoneb) 3 ml Q4H RESP THERAPY PRN HHN SHORTNESS OF BREATH Last administered on 06/15/18at 21:39; Admin Dose 3 ML; Start 06/15/18 at 19:00 Piperacillin Sod/ Tazobactam Sod 100 ml @ 200 mls/hr Q6 IVPB Last administered on 06/16/18at 06:05; Admin Dose 200 MLS/HR; Start 06/16/18 at 00:00 Vancomycin HCl (Vanco Iv Per Pharmacy) VANCOMYCIN PER PHARMACY NOTE XX ; Start 06/15/18 at 19:00 Hydralazine HCl (Apresoline) 10 mg Q6H PRN IV ELEVATED BLOOD PRESSURE; Start 06/15/18 at 19:00 Nitroglycerin (Nitroglycerin (Sl Tab) 0.4 Mg) 1 tab Q5M PRN SL ANGINA; Start 06/15/18 at 19:00 Carvedilol (Coreg) 6.25 mg BID PO Last administered on 06/16/18at 08:35; Admin Dose 6.25 MG; Start 06/15/18 at 22:00 Digoxin (Digoxin) 0.125 mg DAILY@13 PO ; Start 06/16/18 at 13:00 Furosemide (Lasix) 40 mg DAILY PRN PO swelling of lower extremities; Start 06/15/18 at 19:00 Lisinopril (Zestril) 10 mg DAILY PO Last administered on 06/16/18at 08:34; Admin Dose 10 MG; Start 06/16/18 at 09:00 Ferrous Gluconate (Fergon) 325 mg DAILY PO ; Start 06/16/18 at 09:00 Zolpidem Tartrate (Ambien) 2.5 mg HS PRN PO INSOMNIA; Start 06/15/18 at 20:00 Nicotine (Nicoderm 14 Mg/ 24hr) 1 patch QHS TRANSDERM Last administered on 06/15/18at 22:03; Admin Dose 1 PATCH; Start 06/15/18 at 21:30 Phenol (Cepastat Lozenge) 1 lozenge Q1H PRN MT COUGH Last administered on 06/16/18at 04:41; Admin Dose 1 LOZENGE; Start 06/15/18 at 20:00 Vancomycin HCl 250 ml @ 125 mls/hr Q12H IVPB ; Start 06/16/18 at 12:00 ALEX OLSEN MD Jun 16, 2018 08:51
[2018-06-16] MEDS ORDERED: FERROUS GLUCONATE (EC) 325 MG TAB PO SCH (09:00)
[2018-06-16] MEDS ORDERED: LISINOPRIL 10 MG TAB PO SCH (09:00)
--- NOTE | 2018-06-16 10:47 | PN ---
Date/Time of Note Date/Time of Note DATE: 06/16/18 TIME: 10:35 Assessment/Plan VTE Prophylaxis Risk score (from Ns)>0 risk: 1 SCD applied (from Ns): Yes Pharmacological prophylaxis: other Lines/Catheters IV Catheter Type (from [facility]): Peripheral IV Assessment/Plan Hospital Course S: Patient still had fever this morning 100.9. Seen by cardiology team this morning. Waiting for ID consult. Echocardiogram ordered as well this morning by cardiology team. O: VS - see below PHYSICAL EXAMINATION: GENERAL: lying in bed, answering questions appropriately. No acute distress. HEENT: Pupils equal, round, react to light, intact. NECK: Supple, no thyromegaly. CHEST: The left upper chest area where the incision was made for AICD placement, appears to be clean, dry and intact. There are still Steri-Strips in place. CARDIOVASCULAR: S1, S2 heard. No rubs or gallops. LUNGS: Clear to auscultation bilaterally. ABDOMEN: Soft, nontender, nondistended. Normal bowel sounds. No rebound or guarding. MUSCULOSKELETAL: No lower extremity edema bilaterally. NEUROLOGIC: No focal deficits. ASSESSMENT AND PLAN: 42-year-old male coming in with fever and chest pain and cough for 3 days with a recent AICD placement performed on 06/11/2018 on his last admission signs of systemic inflammatory response syndrome. 1. Systemic inflammatory response syndrome-still with fevers, white blood cell count normal- possible source of possible infection could be the surgical incision site where he had the AICD placed on 06/11/2018. Patient still having fever this morning. -Continue broad spectrum antibiotics -Follow recommendations from cardiology and infectious disease consult. -Follow-up results of repeat echocardiogram follow up culture results. -Tylenol p.r.n. pain and fevers. 2. Smoking history: - Counseled on cessation. - nicotine patch. 3. History of IV drug abuse - Counseled on cessation of that. - fruit worker consult obtained as well 4. History of severe cardiomyopathy with AICD placement. - Again, continue current cardiac medications, f/u cardiology consult rec's including repeat ECHO Result Diagram: 06/16/18 0645 06/16/18 0645 Results 24hrs Laboratory Tests Test 06/15/18 15:27 06/15/18 15:30 06/15/18 18:06 06/15/18 21:05 White Blood Count 6.4 # Red Blood Count 4.75 Hemoglobin 11.0 L Hematocrit 35.6 L Mean Corpuscular 74.9 L Volume Mean Corpuscular 23.2 L Hemoglobin Mean Corpuscular 30.9 L Hemoglobin Concent Red Cell 18.3 H Distribution Width Platelet Count 367 Mean Platelet 8.6 Volume Immature 0.300 Granulocytes % Neutrophils % Segmented 69 Neutrophils % (Manual) Band Neutrophils % 5 H (Manual) Lymphocytes % Lymphocytes % 9 L (Manual) Reactive 1 H Lymphocytes % (Manual) Monocytes % Monocytes % 14 H (Manual) Eosinophils % Basophils % Basophils % 2 (Manual) Nucleated Red Blood 0.0 Cells % Immature 0.020 Granulocytes # Neutrophils # Neutrophils # 4.4 (Manual) Band Neutrophils # 0.3 Lymphocytes 0.5 L (Manual) Lymphocytes # Reactive 0.0 Lymphocytes # Monocytes # Monocytes # 0.8 (Manual) Eosinophils # Basophils # Basophils # 0.1 H (Manual) Nucleated Red Blood Cells # Platelet Estimate NORMAL Polychromasia 1+ Hypochromasia 1+ Poikilocytosis 1+ Anisocytosis 2+ Microcytosis 2+ Prothrombin Time 14.0 Prothrombin Time 1.1 Ratio INR International 1.07 Normalized Ratio Activated 30.8 Partial Thromboplas t Time Sodium Level 138 Potassium Level 4.4 Chloride Level 97 Carbon Dioxide 27 Level Anion Gap 14 H Blood Urea Nitrogen 15 Creatinine 1.03 Est Glomerular > 60 Filtrat Rate mL/min Glucose Level 92 Calcium Level 9.3 Total Bilirubin 0.7 Direct Bilirubin 0.00 Indirect Bilirubin 0.7 Aspartate Amino 38 Transf (AST/SGOT) Alanine 40 Aminotransferase (A LT/SGPT) Alkaline 115 Phosphatase Troponin I 0.050 Total Protein 8.0 Albumin 4.4 Globulin 3.60 H Albumin/Globulin 1.22 Ratio Free Thyroxine 0.99 POC Venous Lactate 1.8 Bedside Urine pH 5.5 (LAB) Bedside Urine 1+ H Protein (LAB) Bedside Urine Negative Glucose (UA) Bedside Urine Negative Ketones (LAB) Bedside Urine Blood Trace-lysed H Bedside Urine Negative Nitrite (LAB) Bedside Urine Negative Leukocyte Esterase (L Lactic Acid Level 1.0 Test 06/16/18 00:42 06/16/18 02:27 06/16/18 06:43 06/16/18 06:45 Lactic Acid Level 0.7 1.1 1.2 White Blood Count 6.5 Red Blood Count 4.72 Hemoglobin 10.8 L Hematocrit 35.6 L Mean Corpuscular 75.4 L Volume Mean Corpuscular 22.9 L Hemoglobin Mean Corpuscular 30.3 L Hemoglobin Concent Red Cell 18.4 H Distribution Width Platelet Count 336 Mean Platelet 9.3 Volume Immature 0.500 H Granulocytes % Neutrophils % 60.8 Lymphocytes % 19.9 Monocytes % 17.6 H Eosinophils % 0.3 Basophils % 0.9 Nucleated Red Blood 0.0 Cells % Immature 0.030 Granulocytes # Neutrophils # 3.9 Lymphocytes # 1.3 Monocytes # 1.1 H Eosinophils # 0.0 Basophils # 0.1 Nucleated Red Blood 0.0 Cells # Sodium Level 137 Potassium Level 4.2 Chloride Level 102 Carbon Dioxide 26 Level Anion Gap 9 # Blood Urea Nitrogen 16 Creatinine 1.09 Est Glomerular > 60 Filtrat Rate mL/min Glucose Level 88 Hemoglobin A1c 5.8 Calcium Level 8.5 Phosphorus Level 4.5 Magnesium Level 2.0 Triglycerides Level 70 Cholesterol Level 124 LDL Cholesterol, 89 Calculated HDL Cholesterol 21 L Cholesterol/HDL 5.9 Ratio Thyroid Stimulating 0.834 Hormone (TSH) Exam/Review of Systems Exam Vitals Vital Signs Date Temp Pulse Resp B/P (MAP) Pulse Ox O2 O2 Flow FiO2 Time Delivery Rate 06/16/18 Room Air 09:10 06/16/18 88 08:16 06/16/18 100.9 20 102/59 98 07:13 (73) 06/15/18 21 21:43 06/15/18 2.0 18:47 Intake and Output 06/15/18 06/15/18 06/16/18 1515:00 23:00 07:00 IntakeIntake Total 350 ml OutputOutput Total 2 ml BalanceBalance 348 ml Results Results 24hrs Laboratory Tests Test 06/15/18 15:27 06/15/18 15:30 06/15/18 18:06 06/15/18 21:05 White Blood Count 6.4 # Red Blood Count 4.75 Hemoglobin 11.0 L Hematocrit 35.6 L Mean Corpuscular 74.9 L Volume Mean Corpuscular 23.2 L Hemoglobin Mean Corpuscular 30.9 L Hemoglobin Concent Red Cell 18.3 H Distribution Width Platelet Count 367 Mean Platelet 8.6 Volume Immature 0.300 Granulocytes % Neutrophils % Segmented 69 Neutrophils % (Manual) Band Neutrophils % 5 H (Manual) Lymphocytes % Lymphocytes % 9 L (Manual) Reactive 1 H Lymphocytes % (Manual) Monocytes % Monocytes % 14 H (Manual) Eosinophils % Basophils % Basophils % 2 (Manual) Nucleated Red Blood 0.0 Cells % Immature 0.020 Granulocytes # Neutrophils # Neutrophils # 4.4 (Manual) Band Neutrophils # 0.3 Lymphocytes 0.5 L (Manual) Lymphocytes # Reactive 0.0 Lymphocytes # Monocytes # Monocytes # 0.8 (Manual) Eosinophils # Basophils # Basophils # 0.1 H (Manual) Nucleated Red Blood Cells # Platelet Estimate NORMAL Polychromasia 1+ Hypochromasia 1+ Poikilocytosis 1+ Anisocytosis 2+ Microcytosis 2+ Prothrombin Time 14.0 Prothrombin Time 1.1 Ratio INR International 1.07 Normalized Ratio Activated 30.8 Partial Thromboplas t Time Sodium Level 138 Potassium Level 4.4 Chloride Level 97 Carbon Dioxide 27 Level Anion Gap 14 H Blood Urea Nitrogen 15 Creatinine 1.03 Est Glomerular > 60 Filtrat Rate mL/min Glucose Level 92 Calcium Level 9.3 Total Bilirubin 0.7 Direct Bilirubin 0.00 Indirect Bilirubin 0.7 Aspartate Amino 38 Transf (AST/SGOT) Alanine 40 Aminotransferase (A LT/SGPT) Alkaline 115 Phosphatase Troponin I 0.050 Total Protein 8.0 Albumin 4.4 Globulin 3.60 H Albumin/Globulin 1.22 Ratio Free Thyroxine 0.99 POC Venous Lactate 1.8 Bedside Urine pH 5.5 (LAB) Bedside Urine 1+ H Protein (LAB) Bedside Urine Negative Glucose (UA) Bedside Urine Negative Ketones (LAB) Bedside Urine Blood Trace-lysed H Bedside Urine Negative Nitrite (LAB) Bedside Urine Negative Leukocyte Esterase (L Lactic Acid Level 1.0 Test 06/16/18 00:42 06/16/18 02:27 06/16/18 06:43 06/16/18 06:45 Lactic Acid Level 0.7 1.1 1.2 White Blood Count 6.5 Red Blood Count 4.72 Hemoglobin 10.8 L Hematocrit 35.6 L Mean Corpuscular 75.4 L Volume Mean Corpuscular 22.9 L Hemoglobin Mean Corpuscular 30.3 L Hemoglobin Concent Red Cell 18.4 H Distribution Width Platelet Count 336 Mean Platelet 9.3 Volume Immature 0.500 H Granulocytes % Neutrophils % 60.8 Lymphocytes % 19.9 Monocytes % 17.6 H Eosinophils % 0.3 Basophils % 0.9 Nucleated Red Blood 0.0 Cells % Immature 0.030 Granulocytes # Neutrophils # 3.9 Lymphocytes # 1.3 Monocytes # 1.1 H Eosinophils # 0.0 Basophils # 0.1 Nucleated Red Blood 0.0 Cells # Sodium Level 137 Potassium Level 4.2 Chloride Level 102 Carbon Dioxide 26 Level Anion Gap 9 # Blood Urea Nitrogen 16 Creatinine 1.09 Est Glomerular > 60 Filtrat Rate mL/min Glucose Level 88 Hemoglobin A1c 5.8 Calcium Level 8.5 Phosphorus Level 4.5 Magnesium Level 2.0 Triglycerides Level 70 Cholesterol Level 124 LDL Cholesterol, 89 Calculated HDL Cholesterol 21 L Cholesterol/HDL 5.9 Ratio Thyroid Stimulating 0.834 Hormone (TSH) Medications Medication Current Medications IV Flush (NS 3 ml) 3 ml PER PROTOCOL IV ; Start 06/15/18 at 19:00 Ondansetron HCl (Zofran Inj) 4 mg Q6H PRN IV NAUSEA/VOMITING; Start 06/15/18 at 19:00 Acetaminophen (Tylenol Tab) 650 mg Q6H PRN PO .PAIN 1-3 OR TEMP Last adm inistered on 06/15/18at 23:58; Admin Dose 650 MG; Start 06/15/18 at 19:00 Acetaminophen/ Hydrocodone Bitart ([place] (5/325)) 1 tab Q6H PRN PO .MOD PAIN 4- 6 Last administered on 06/15/18at 22:05; Admin Dose 1 TAB; Start 06/15/18 at 19:00 Morphine Sulfate (morphine) 2 mg Q4H PRN IV .SEVERE PAIN 7-10; Start 06/15/18 at 19:00 Docusate Sodium (Colace) 100 mg Q12H PRN PO .CONSTIPATION; Start 06/15/18 at 19:00 Magnesium Hydroxide (Milk Of Mag) 30 ml DAILY PRN PO .CONSTIPATION; Start 06/15/18 at 19:00 Sodium Chloride 1,000 ml @ 75 mls/hr [id number] IV Last administered on 06/16/18at 08:35; Admin Dose 75 MLS/HR; Start 06/15/18 at 22:00 Lorazepam (Ativan) 0.5 mg Q6H PRN IV ANXIETY; Start 06/15/18 at 19:00 Albuterol/ Ipratropium (Duoneb) 3 ml Q4H RESP THERAPY PRN HHN SHORTNESS OF BREATH Last administered on 06/15/18at 21:39; Admin Dose 3 ML; Start 06/15/18 at 19:00 Piperacillin Sod/ Tazobactam Sod 100 ml @ 200 mls/hr Q6 IVPB Last administered on 06/16/18at 06:05; Admin Dose 200 MLS/HR; Start 06/16/18 at 00:00 Vancomycin HCl (Vanco Iv Per Pharmacy) VANCOMYCIN PER PHARMACY NOTE XX ; Start 06/15/18 at 19:00 Hydralazine HCl (Apresoline) 10 mg Q6H PRN IV ELEVATED BLOOD PRESSURE; Start 06/15/18 at 19:00 Nitroglycerin (Nitroglycerin (Sl Tab) 0.4 Mg) 1 tab Q5M PRN SL ANGINA; Start 06/15/18 at 19:00 Carvedilol (Coreg) 6.25 mg BID PO Last administered on 06/16/18at 08:35; Admin Dose 6.25 MG; Start 06/15/18 at 22:00 Digoxin (Digoxin) 0.125 mg DAILY@13 PO ; Start 06/16/18 at 13:00 Furosemide (Lasix) 40 mg DAILY PRN PO swelling of lower extremities; Start 06/15/18 at 19:00 Lisinopril (Zestril) 10 mg DAILY PO Last administered on 06/16/18at 08:34; Admin Dose 10 MG; Start 06/16/18 at 09:00 Ferrous Gluconate (Fergon) 325 mg DAILY PO ; Start 06/16/18 at 09:00 Zolpidem Tartrate (Ambien) 2.5 mg HS PRN PO INSOMNIA; Start 06/15/18 at 20:00 Nicotine (Nicoderm 14 Mg/ 24hr) 1 patch QHS TRANSDERM Last administered on 06/15/18at 22:03; Admin Dose 1 PATCH; Start 06/15/18 at 21:30 Phenol (Cepastat Lozenge) 1 lozenge Q1H PRN MT COUGH Last administered on 06/16/18at 04:41; Admin Dose 1 LOZENGE; Start 06/15/18 at 20:00 Vancomycin HCl 250 ml @ 125 mls/hr Q12H IVPB ; Start 06/16/18 at 12:00 VENKATA MENDOZA Jun 16, 2018 10:45
--- NOTE | 2018-06-16 11:31 | DS ---
Date/Time of Note Date/Time of Note DATE: 06/16/18 TIME: 11:31 Discharge Summary Admission/Discharge Info Admit Date/Time Jun 15, 2018 at 20:14 Discharge Date/Time Jun 16, 2018 at 11:08 Discharge Diagnosis SIRS: patient left AMA Patient Condition: Critical Hospital Course S: Patient still had fever this morning 100.9. Seen by cardiology team this morning. Waiting for ID consult. Echocardiogram ordered as well this morning by cardiology team. O: VS - see below PHYSICAL EXAMINATION: GENERAL: lying in bed, answering questions appropriately. No acute distress. HEENT: Pupils equal, round, react to light, intact. NECK: Supple, no thyromegaly. CHEST: The left upper chest area where the incision was made for AICD placement , appears to be clean, dry and intact. There are still Steri-Strips in place. CARDIOVASCULAR: S1, S2 heard. No rubs or gallops. LUNGS: Clear to auscultation bilaterally. ABDOMEN: Soft, nontender, nondistended. Normal bowel sounds. No rebound or guarding. MUSCULOSKELETAL: No lower extremity edema bilaterally. NEUROLOGIC: No focal deficits. ASSESSMENT AND PLAN: 42-year-old male coming in with fever and chest pain and cough for 3 days with a recent AICD placement performed on 06/11/2018 on his l ast admission signs of systemic inflammatory response syndrome. 1. Systemic inflammatory response syndrome-still with fevers, white blood cell count normal- possible source of possible infection could be the surgical incision site where he had the AICD placed on 06/11/2018. Patient still having fever this morning. -Continue broad spectrum antibiotics -Follow recommendations from cardiology and infectious disease consult. -Follow-up results of repeat echocardiogram follow up culture results. -Tylenol p.r.n. pain and fevers. 2. Smoking history: - Counseled on cessation. - nicotine patch. 3. History of IV drug abuse - Counseled on cessation of that. - machine worker consult obtained as well 4. History of severe cardiomyopathy with AICD placement. - Again, continue current cardiac medications, f/u cardiology consult rec's including repeat ECHO Home Meds Active Scripts Ferrous Sulfate (Ferrous Sulfate) 325 Mg Tablet., 325 MG PO DAILY for 30 Days, #30 TAB 6 Refills Prov:ESTHER TABARES MD 06/13/18 Digoxin* (Digitek*) 125 Mcg Tablet, 0.125 MG PO DAILY@13 for 30 Days, #30 TAB 6 Refills Prov:ESTHER TABARES MD 06/13/18 Carvedilol* (Carvedilol*) 6.25 Mg Tablet, 6.25 MG PO BID for 30 Days, #60 TAB 6 Refills Prov:ESTHER TABARES MD 06/13/18 Furosemide* (Furosemide*) 40 Mg Tablet, 40 MG PO DAILY PRN for swelling of lower extremities for 30 Days, #30 TAB 6 Refills Prov:ESTHER TABARES MD 06/13/18 Lisinopril* (Lisinopril*) 10 Mg Tablet, 10 MG PO DAILY for 30 Days, #30 TAB Prov:ESTHER TABARES MD 06/13/18 Discontinued Reported Medications Aspirin* (Aspirin* EC) 81 Mg Tablet.dr, 81 MG PO DAILY, TAB 06/05/18 Spironolactone* (Aldactone*) 25 Mg Tablet, 25 MG PO DAILY, #30 TAB 06/05/18 Primary Care Provider [facility] Time spent on discharge: < 30 minutes Pending Labs Laboratory Tests Test 06/15/18 15:27 06/15/18 15:30 06/15/18 18:06 06/15/18 21:05 White Blood 6.4 Count 10^3/ul (4.8-10 .8) Red Blood 4.75 Count 10^6/ul (4.70-6 .10) Hemoglobin 11.0 g/dl (14.0-18.0 ) Hematocrit 35.6 % (42.0-52.0) Mean 74.9 Corpuscular fl (82.0-101.0) Volume Mean 23.2 Corpuscular pg (29.0-33.0) Hemoglobin Mean 30.9 Corpuscular g/dl (32.0-37.0 Hemoglobin Conc ) ent Red Cell 18.3 Distribution % (11.5-14.5) Width Platelet Count 367 10^3/UL (140-41 5) Mean Platelet 8.6 Volume fl (7.4-10.4) Immature 0.300 Granulocytes % % (0.001-0.429) Neutrophils % % (39.0-77.0) Segmented 69 % (39-77) Neutrophils % (Manual) Band 5 % (0-4) Neutrophils % (Manual) Lymphocytes % % (15.0-51.0) Lymphocytes % 9 % (15-51) (Manual) Reactive 1 % (0-0) Lymphocytes % (Manual) Monocytes % % (0.0-11.0) Monocytes % 14 % (0-11) (Manual) Eosinophils % % (0.0-7.0) Basophils % % (0.0-2.0) Basophils % 2 % (0-2) (Manual) Nucleated Red 0.0 Blood Cells % /100WBC (0.0-0. 0) Immature 0.020 Granulocytes # 10^3/ul (0.0-0. 031) Neutrophils # 10^3/ul (1.6-7. 5) Neutrophils # 4.4 (Manual) 10^3/ul (1.6-7. 5) Band 0.3 Neutrophils # 10^3/ul (0.0-0. 6) Lymphocytes 0.5 (Manual) 10^3/ul (0.8-2. 9) Lymphocytes # 10^3/ul (0.8-2. 9) Reactive 0.0 Lymphocytes # 10^3/ul (0.0-0. 0) Monocytes # 10^3/ul (0.3-0. 9) Monocytes # 0.8 (Manual) 10^3/ul (0.3-0. 9) Eosinophils # 10^3/ul (0.0-0. 5) Basophils # 10^3/ul (0.0-0. 1) Basophils # 0.1 (Manual) 10^3/ul (0.0-0. 0) Nucleated Red 10^3/ul (0.0-0. Blood Cells # 0) Platelet NORMAL Estimate Polychromasia 1+ (0-0) Hypochromasia 1+ (0-0) Poikilocytosis 1+ (0-0) Anisocytosis 2+ (0-0) Microcytosis 2+ (0-0) Prothrombin 14.0 Time Sec (11.9-14.9) Prothrombin 1.1 Time Ratio INR 1.07 International Normalized Rati o Activated 30.8 Partial Thrombo Sec (23.0-35.0) plast Time Sodium Level 138 mmol/L (135-144 ) Potassium 4.4 Level mmol/L (3.5-5.1 ) Chloride Level 97 mmol/L (97-110) Carbon Dioxide 27 Level mmol/L (21-31) Anion Gap 14 (5-13) Blood Urea 15 mg/dl (7-20) Nitrogen Creatinine 1.03 mg/dl (0.61-1.2 4) Est Glomerular > 60 Filtrat mL/min (>60) Rate mL/min Glucose Level 92 mg/dl (70-220) Calcium Level 9.3 mg/dl (8.4-10.2 ) Total 0.7 Bilirubin mg/dl (0.2-1.3) Direct 0.00 Bilirubin mg/dl (0.00-0.2 0) Indirect 0.7 Bilirubin mg/dl (0-1.1) Aspartate Amino 38 IU/L (15-46) Transf (AST/SGO T) Alanine 40 IU/L (13-69) Aminotransferas e (ALT/SGPT) Alkaline 115 Phosphatase IU/L (42-121) Troponin I 0.050 ng/ml (0.000-0. 120) Total Protein 8.0 g/dl (6.1-8.1) Albumin 4.4 g/dl (3.3-4.9) Globulin 3.60 g/dl (1.3-3.2) Albumin/Globuli 1.22 n Ratio Free Thyroxine 0.99 ng/dl (0.64-1.7 9) POC Venous 1.8 Lactate mmol/L (0.5-2. 0) Bedside Urine 5.5 (5.0-8.5) pH (LAB) Bedside Urine 1+ (NEGATIVE) Protein (LAB) Bedside Urine Negative (NEGA Glucose (UA) TIVE) Bedside Urine Negative (NEGA Ketones (LAB) TIVE) Bedside Urine Trace-lysed (N Blood EGATIVE) Bedside Urine Negative (NEGA Nitrite (LAB) TIVE) Bedside Urine Negative (NEGA Leukocyte Emely TIVE) ase (L Lactic Acid 1.0 Level mmol/L (0.5-2. 0) Test 06/16/18 00:42 06/16/18 02:27 06/16/18 06:43 06/16/18 06:45 Lactic Acid 0.7 1.1 1.2 Level mmol/L (0.5-2.0 mmol/L (0.5-2. mmol/L (0.5-2. ) 0) 0) White Blood 6.5 Count 10^3/ul (4.8-1 0.8) Red Blood 4.72 Count 10^6/ul (4.70- 6.10) Hemoglobin 10.8 g/dl (14.0-18. 0) Hematocrit 35.6 % (42.0-52.0) Mean 75.4 Corpuscular fl (82.0-101.0 Volume ) Mean 22.9 Corpuscular pg (29.0-33.0) Hemoglobin Mean 30.3 Corpuscular g/dl (32.0-37. Hemoglobin Conc 0) ent Red Cell 18.4 Distribution % (11.5-14.5) Width Platelet Count 336 10^3/UL (140-4 15) Mean Platelet 9.3 Volume fl (7.4-10.4) Immature 0.500 Granulocytes % % (0.001-0.429 ) Neutrophils % 60.8 % (39.0-77.0) Lymphocytes % 19.9 % (15.0-51.0) Monocytes % 17.6 % (0.0-11.0) Eosinophils % 0.3 % (0.0-7.0) Basophils % 0.9 % (0.0-2.0) Nucleated Red 0.0 Blood Cells % /100WBC (0.0-0 .0) Immature 0.030 Granulocytes # 10^3/ul (0.0-0 .031) Neutrophils # 3.9 10^3/ul (1.6-7 .5) Lymphocytes # 1.3 10^3/ul (0.8-2 .9) Monocytes # 1.1 10^3/ul (0.3-0 .9) Eosinophils # 0.0 10^3/ul (0.0-0 .5) Basophils # 0.1 10^3/ul (0.0-0 .1) Nucleated Red 0.0 Blood Cells # 10^3/ul (0.0-0 .0) Sodium Level 137 mmol/L (135-14 4) Potassium 4.2 Level mmol/L (3.5-5. 1) Chloride Level 102 mmol/L (97-110 ) Carbon Dioxide 26 Level mmol/L (21-31) Anion Gap 9 (5-13) Blood Urea 16 Nitrogen mg/dl (7-20) Creatinine 1.09 mg/dl (0.61-1. 24) Est Glomerular > 60 Filtrat mL/min (>60) Rate mL/min Glucose Level 88 mg/dl (70-220) Hemoglobin A1c 5.8 % (0-5.9) Calcium Level 8.5 mg/dl (8.4-10. 2) Phosphorus 4.5 Level mg/dl (2.5-4.9 ) Magnesium 2.0 Level mg/dl (1.7-2.5 ) Triglycerides 70 Level mg/dl (0-149) Cholesterol 124 Level mg/dl (100-200 ) LDL 89 mg/dl Cholesterol, Calculated HDL 21 Cholesterol mg/dl (27-67) Cholesterol/HDL 5.9 RATIO Ratio Thyroid 0.834 Stimulating MIU/L (0.465-4 Hormone (TSH) .680) Microbiology Date/Time Source Procedure Growth Status 06/15/18 16:29 Nasopharyngeal Influenza Types A,B Direct EIA - Final Complete VENKATA MENDOZA Jun 16, 2018 11:31
[2018-06-16] MEDS ORDERED: VANCOMYCIN 1 GM 250 ML IVPB SCH (12:00)
[2018-06-16] MEDS ORDERED: DIGOXIN 0.125 MG TAB PO SCH (13:00)
--- NOTE | 2018-06-17 00:20 | ERD ---
ER Documentation Chief Complaint Chief Complaint coughing,fever HPI The patient is a 42-year-old male, presenting to the ER because of fever and cough with chest wall pain with coughing. Has neck pain, chest pain with vomiting/radiation/exertion/diaphoresis, dyspnea, abdominal pain, vomiting, dysuria, diarrhea. He smokes, denies drinking, does illicit drug, denies any history of IV drug abuse Past medical history: Hypertension, CAD, cardiomyopathy, history of cardiac arrest due to V. fib, anemia, history of CHF Past surgical history: AICD implanted on June 11, 2018 ROS All systems reviewed and are negative except as per history of present illness. Medications Home Meds Active Scripts Ferrous Sulfate (Ferrous Sulfate) 325 Mg Tablet., 325 MG PO DAILY for 30 Days, #30 TAB 6 Refills Prov:ESTHER TABARES MD 06/13/18 Digoxin* (Digitek*) 125 Mcg Tablet, 0.125 MG PO DAILY@13 for 30 Days, #30 TAB 6 Refills Prov:ESTHER TABARES MD 06/13/18 Carvedilol* (Carvedilol*) 6.25 Mg Tablet, 6.25 MG PO BID for 30 Days, #60 TAB 6 Refills Prov:ESTHER TABARES MD 06/13/18 Furosemide* (Furosemide*) 40 Mg Tablet, 40 MG PO DAILY PRN for swelling of lower extremities for 30 Days, #30 TAB 6 Refills Prov:ESTHER TABARES MD 06/13/18 Lisinopril* (Lisinopril*) 10 Mg Tablet, 10 MG PO DAILY for 30 Days, #30 TAB Prov:ESTHER TABARES MD 06/13/18 Discontinued Reported Medications Aspirin* (Aspirin* EC) 81 Mg Tablet., 81 MG PO DAILY, TAB 06/05/18 Spironolactone* (Aldactone*) 25 Mg Tablet, 25 MG PO DAILY, #30 TAB 06/05/18 Allergies Allergies: Coded Allergies: No Known Allergy (Unverified , 06/15/18) PMhx/Soc History of Surgery: Yes (AICD) Anesthesia Reaction: No Hx Neurological Disorder: No Hx Respiratory Disorders: No Hx Cardiac Disorders: Yes (cardiomyopathy, cardiac arrest, chf) Hx Psychiatric Problems: No Hx Miscellaneous Medical Probl: Yes (smoker, drug abuse) Hx Alcohol Use: No Hx Substance Use: Yes (meth) Hx Tobacco Use: Yes Smoking Status: Current every day smoker Physical Exam Vitals Vital Signs Date Temp Pulse Resp B/P (MAP) Pulse Ox O2 O2 Flow FiO2 Time Delivery Rate 06/15/18 109 21 136/76 98 Nasal 2.0 18:47 (96) Cannula 06/15/18 107 26 130/70 100 Room Air 18:16 (90) 06/15/18 100.2 106 18 136/86 Room Air 17:26 (103) 06/15/18 103 15 119/89 100 Nasal 2.0 16:03 (99) Cannula 06/15/18 101.4 16:01 06/15/18 Nasal 2 15:38 Cannula 06/15/18 101.6 103 22 115/72 100 15:12 (86) Physical Exam Const: No acute distress. Head: Atraumatic. Eyes: Normal Conjunctiva. ENT: Normal External Ears, Nose and Mouth. Bilateral tympanic membranes and oropharynx are within normal limit Neck: Full range of motion. No meningismus. Resp: Clear to auscultation bilaterally. Cardio: Regular tachycardic Abd: Soft, non distended, normal bowel sounds, non tender. Skin: No petechiae or rashes. Back: No midline or flank tenderness. Ext: No cyanosis, or edema. Neur: Awake and alert. No focal deficit Psych: Normal Mood and Affect. Result Diagram: 06/16/1845 06/16/18 0645 Results 24 hrs Laboratory Tests Test 06/15/18 15:27 06/15/18 15:30 06/15/18 18:06 White Blood Count 6.4 10^3/ul Red Blood Count 4.75 10^6/ul Hemoglobin 11.0 g/dl Hematocrit 35.6 % Mean Corpuscular Volume 74.9 fl Mean Corpuscular Hemoglobin 23.2 pg Mean Corpuscular Hemoglobin Concent 30.9 g/dl Red Cell Distribution Width 18.3 % Platelet Count 367 10^3/UL Mean Platelet Volume 8.6 fl Immature Granulocytes % 0.300 % Neutrophils % % Segmented Neutrophils % (Manual) 69 % Band Neutrophils % (Manual) 5 % Lymphocytes % % Lymphocytes % (Manual) 9 % Reactive Lymphocytes % (Manual) 1 % Monocytes % % Monocytes % (Manual) 14 % Eosinophils % % Basophils % % Basophils % (Manual) 2 % Nucleated Red Blood Cells % 0.0 /100WBC Immature Granulocytes # 0.020 10^3/ul Neutrophils # 10^3/ul Neutrophils # (Manual) 4.4 10^3/ul Band Neutrophils # 0.3 10^3/ul Lymphocytes (Manual) 0.5 10^3/ul Lymphocytes # 10^3/ul Reactive Lymphocytes # 0.0 10^3/ul Monocytes # 10^3/ul Monocytes # (Manual) 0.8 10^3/ul Eosinophils # 10^3/ul Basophils # 10^3/ul Basophils # (Manual) 0.1 10^3/ul Nucleated Red Blood Cells # 10^3/ul Platelet Estimate NORMAL Polychromasia 1+ Hypochromasia 1+ Poikilocytosis 1+ Anisocytosis 2+ Microcytosis 2+ Prothrombin Time 14.0 Sec Prothrombin Time Ratio 1.1 INR International Normalized Ratio 1.07 Activated Partial Thromboplast Time 30.8 Sec Sodium Level 138 mmol/L Potassium Level 4.4 mmol/L Chloride Level 97 mmol/L Carbon Dioxide Level 27 mmol/L Anion Gap 14 Blood Urea Nitrogen 15 mg/dl Creatinine 1.03 mg/dl Est Glomerular Filtrat Rate mL/min > 60 mL/min Glucose Level 92 mg/dl Calcium Level 9.3 mg/dl Total Bilirubin 0.7 mg/dl Direct Bilirubin 0.00 mg/dl Indirect Bilirubin 0.7 mg/dl Aspartate Amino Transf (AST/SGOT) 38 IU/L Alanine Aminotransferase (ALT/SGPT) 40 IU/L Alkaline Phosphatase 115 IU/L Troponin I 0.050 ng/ml Total Protein 8.0 g/dl Albumin 4.4 g/dl Globulin 3.60 g/dl Albumin/Globulin Ratio 1.22 Free Thyroxine 0.99 ng/dl POC Venous Lactate 1.8 mmol/L Bedside Urine pH (LAB) 5.5 Bedside Urine Protein (LAB) 1+ Bedside Urine Glucose (UA) Negative Bedside Urine Ketones (LAB) Negative Bedside Urine Blood Trace-lysed Bedside Urine Nitrite (LAB) Negative Bedside Urine Leukocyte Esterase (L Negative Current Medications Medications Dose Sig/Love Start Time Status Last (Trade) Ordered Route PRN Stop Time Admin Dose Reason Admin Sodium 2,050 ml BOLUS OVER 2 06/15/18 Cancel Chloride HOURS STAT 15:20 06/15/18 (NS) IV* 15:21 650 mg ONCE ONCE 06/15/18 DC 06/15/18 Acetaminophen PO 15:30 06/15/18 16:01 (Tylenol 15:31 Tab) Ceftriaxone 50 ml @ ONCE ONCE 06/15/18 DC 06/15/18 Sodium 100 mls/hr IVPB 18:30 06/15/18 18:35 18:59 IV Flush 3 ml PER 06/15/18 DC (NS 3 ml) PROTOCOL IV 19:00 06/16/18 11:27 Ondansetron 4 mg Q6H PRN 06/15/18 DC HCl (Zofran IV 19:00 Inj) NAUSEA/VOMITI 06/16/18 11:27 NG 650 mg Q6H PRN 06/15/18 DC 06/15/18 Acetaminophen PO .PAIN 1-3 19:00 23:58 (Tylenol OR TEMP 06/16/18 11:27 Tab) 1 tab Q6H PRN 06/15/18 DC 06/15/18 Acetaminophen PO .MOD PAIN 19:00 22:05 / 4-6 06/16/18 11:27 Hydrocodone Bitart ([place] (5/325)) Morphine 2 mg Q4H PRN 06/15/18 DC Sulfate IV .SEVERE 19:00 (morphine) PAIN 7-10 06/16/18 11:27 Docusate 100 mg Q12H PRN 06/15/18 DC Sodium PO 19:00 (Colace) .CONSTIPATION 06/16/18 11:27 Magnesium 30 ml DAILY PRN 06/15/18 DC Hydroxide PO 19:00 (Milk Of Mag) .CONSTIPATION 06/16/18 11:27 Lorazepam 0.5 mg Q6H PRN 06/15/18 DC (Ativan) IV ANXIETY 19:00 06/16/18 11:27 Albuterol/ 3 ml Q4H RESP 06/15/18 DC 06/15/18 Ipratropium THERAPY PRN 19:00 21:39 (Duoneb) HHN 06/16/18 11:27 SHORTNESS OF BREATH Vancomycin VANCOMYCIN NOTE XX 06/15/18 DC HCl (Vanco PER PHARMACY 19:00 Iv Per 06/16/18 11:27 Pharmacy) Hydralazine 10 mg Q6H PRN 06/15/18 DC HCl IV ELEVATED 19:00 (Apresoline) BLOOD 06/16/18 11:27 PRESSURE 1 tab Q5M PRN 06/15/18 DC Nitroglycerin SL ANGINA 19:00 06/16/18 11:27 (Nitroglyceri n (Sl Tab) 0.4 Mg) Furosemide 40 mg DAILY PRN 06/15/18 DC (Lasix) PO swelling 19:00 of lower 06/16/18 11:27 extremities Zolpidem 2.5 mg HS PRN PO 06/15/18 DC Tartrate INSOMNIA 20:00 (Ambien) 06/16/18 11:27 Phenol 1 lozenge Q1H PRN 06/15/18 DC 06/16/18 (Cepastat MT COUGH 20:00 04:41 Lozenge) 06/16/18 11:27 Procedures/[place] [address] Radiology Main Line: [phone] DIAGNOSTIC IMAGING REPORT Patient: MIAH ENCARNACION : 1975 Age: 42 Sex: M MR #: [id number] DOS: 06/15/18 1520 Ordering MD: EDEL LAMAS MD Location: E/R Room/Bed: PROCEDURE: XR Chest 1 View CLINICAL INDICATION: Chest pain TECHNIQUE: Frontal view of the chest was obtained COMPARISON: 06/11/2018 FINDINGS: Left chest pulse generator with intact lead(s). Heart is enlarged. Mediastinum is unremarkable. Lungs are clear. No effusion or pneumothorax. No acute osseous abnormality. IMPRESSION: Cardiomegaly. Endotracheal tube terminates cm above the serenity. RPTAT: [facility] Physician Allen Date Time Electronically viewed and signed by Cecil Palma Physician on 06/15/2018 15:54 ME/ CC: EDEL LAMAS MD [phone] MEDICAL MAKING DECISION: The patient is a 42-year-old male, presenting with acute SIRS unclear etiology, was treated with Tylenol for fever and Rocephin 1 g IV empirically The differential diagnoses considered include but are not limited to endocarditis, AICD site of cellulitis/abscess, pneumonia, UTI, osteomyelitis Departure Diagnosis: Primary Impression: SIRS (systemic inflammatory response syndrome) Additional Impression: Anemia Condition: Stable Comments I discussed the findings with the patient. I discussed the patient with Dr Pressley at 6:45 p , who was made aware of the lab, the treatment, the patient condition. The patient is admitted to [facility] Disclaimer: Inadvertent spelling and grammatical errors are likely due to EHR/dictation software use and do not reflect on the overall quality of patient care. Also, please note that the electronic time recorded on this note does not necessarily reflect the actual time of the patient encounter. EDEL LAMAS MD Jun 17, 2018 00:20
== END 2018-06-16 11:08 | disposition left against medical advice (07) | DRG 864 ==
LOC: E/R 14:43 → TEL 20:14
PROVIDERS: ADMIT Hospitalist; ATTEND Hospitalist
DX: R50.9 Fever, unspecified (principal); R65.10 Systemic inflammatory response syndrome (SIRS) of non-infectious origin without acute organ dysfunction; I42.9 Cardiomyopathy, unspecified; I25.2 Old myocardial infarction; Z72.0 Tobacco use; Z95.810 Presence of automatic (implantable) cardiac defibrillator; F15.10 Other stimulant abuse, uncomplicated
CPT/HCPCS: 36415; 71045; 80048; 80053; 80061; 81003; 83036; 83605; 83735; 84100; 84439; 84443; 84484; 85025; 85610; 85730; 87081; 87400; 93005; 94664; 96374; J0696; J2405; J2543; J3370; J7030; J7050

== ENCOUNTER 2018-09-20 23:48 | Inpatient (IN) | payer OTHER ==
[~2018-09-20] VITALS: Ht 170.2 cm; Wt 68.0 kg
[2018-09-21] MEDS ORDERED: FUROSEMIDE 20 MG INJ IV STA (00:01)
[2018-09-21] MEDS ORDERED: ACETAMINOPHEN 325 MG TAB PO PRN ×2 (02:00→04:30)
[2018-09-21] MEDS ORDERED: ONDANSETRON 4 MG INJ IV PRN ×2 (02:00→04:30)
--- NOTE | 2018-09-21 02:36 | ERD ---
ER Documentation Chief Complaint Chief Complaint SOB w/ cough x 3 days, had AICD implanted 2.5 mo ago, ran out of lasix HPI This is a 42-year-old male shortness with cough for 3 days. He is been out of his Lasix feels like he is getting progressively more short of breath. Denies fevers chills nausea vomiting. Denies chest pain. Denies any other current complaints. ROS All systems reviewed and are negative except as per history of present illness. Medications Home Meds Active Scripts Ferrous Sulfate (Ferrous Sulfate) 325 Mg Tablet.dr, 325 MG PO DAILY for 30 Days, #30 TAB 6 Refills Prov:ESTHER TABARES MD 06/13/18 Digoxin* (Digitek*) 125 Mcg Tablet, 0.125 MG PO DAILY@13 for 30 Days, #30 TAB 6 Refills Prov:ESTHER TABARES MD 06/13/18 Carvedilol* (Carvedilol*) 6.25 Mg Tablet, 6.25 MG PO BID for 30 Days, #60 TAB 6 Refills Prov:ESTHER TABARES MD 06/13/18 Furosemide* (Furosemide*) 40 Mg Tablet, 40 MG PO DAILY PRN for swelling of lower extremities for 30 Days, #30 TAB 6 Refills Prov:ESTHER TABARES MD 06/13/18 Lisinopril* (Lisinopril*) 10 Mg Tablet, 10 MG PO DAILY for 30 Days, #30 TAB Prov:ESTHER TABARES MD 06/13/18 Allergies Allergies: Coded Allergies: No Known Allergy (Unverified , 06/15/18) PMhx/Soc History of Surgery: Yes (AICD) Anesthesia Reaction: No Hx Neurological Disorder: No Hx Respiratory Disorders: No Hx Cardiac Disorders: Yes (cardiomyopathy, cardiac arrest, chf) Hx Psychiatric Problems: No Hx Miscellaneous Medical Probl: Yes (smoker, drug abuse) Hx Alcohol Use: No Hx Substance Use: Yes (meth) Hx Tobacco Use: Yes Smoking Status: Current every day smoker Physical Exam Vitals Vital Signs Date Temp Pulse Resp B/P (MAP) Pulse Ox O2 O2 Flow FiO2 Time Delivery Rate 09/21/18 120 29 137/110 99 Nasal 3.0 02:15 (119) Cannula 09/21/18 Nasal 2.0 00:31 Cannula 09/21/18 Nasal 3 00:29 Cannula 09/20/18 97.9 115 21 134/99 100 23:51 (111) Physical Exam Const: No acute distress Head: Atraumatic Eyes: Normal Conjunctiva ENT: Normal External Ears, Nose and Mouth. Neck: Full range of motion. No meningismus. Resp: Clear to auscultation bilaterally Cardio: Regular rate and rhythm, no murmurs Abd: Soft, non tender, non distended. Normal bowel sounds Skin: No petechiae or rashes Back: No midline or flank tenderness Ext: No cyanosis, or edema Neur: Awake and alert Psych: Normal Mood and Affect Result Diagram: 09/21/18 0005 09/21/18 0005 Results 24 hrs Laboratory Tests Test 09/21/18 00:05 White Blood Count 9.4 10^3/ul Red Blood Count 5.42 10^6/ul Hemoglobin 13.5 g/dl Hematocrit 43.8 % Mean Corpuscular Volume 80.8 fl Mean Corpuscular Hemoglobin 24.9 pg Mean Corpuscular Hemoglobin Concent 30.8 g/dl Red Cell Distribution Width 18.3 % Platelet Count 300 10^3/UL Mean Platelet Volume 9.2 fl Immature Granulocytes % 0.300 % Neutrophils % 66.4 % Lymphocytes % 24.1 % Monocytes % 4.4 % Eosinophils % 4.1 % Basophils % 0.7 % Nucleated Red Blood Cells % 0.0 /100WBC Immature Granulocytes # 0.030 10^3/ul Neutrophils # 6.2 10^3/ul Lymphocytes # 2.3 10^3/ul Monocytes # 0.4 10^3/ul Eosinophils # 0.4 10^3/ul Basophils # 0.1 10^3/ul Nucleated Red Blood Cells # 0.0 10^3/ul Sodium Level 142 mmol/L Potassium Level 4.5 mmol/L Chloride Level 107 mmol/L Carbon Dioxide Level 26 mmol/L Anion Gap 9 Blood Urea Nitrogen 21 mg/dl Creatinine 1.25 mg/dl Est Glomerular Filtrat Rate mL/min > 60 mL/min Glucose Level 104 mg/dl Calcium Level 9.2 mg/dl Total Bilirubin 1.6 mg/dl Direct Bilirubin 0.00 mg/dl Indirect Bilirubin 1.6 mg/dl Aspartate Amino Transf (AST/SGOT) 28 IU/L Alanine Aminotransferase (ALT/SGPT) 33 IU/L Alkaline Phosphatase 116 IU/L Troponin I 0.070 ng/ml B-Type Natriuretic Peptide 3780 PG/ML Total Protein 7.9 g/dl Albumin 4.1 g/dl Globulin 3.80 g/dl Albumin/Globulin Ratio 1.07 Current Medications Medications Dose Sig/Love Start Time Status Last (Trade) Ordered Route PRN Stop Time Admin Dose Reason Admin Furosemide 60 mg ONCE STAT 09/21/18 DC 09/21/18 (Lasix) IV 00:01 00:21 09/21/18 00:03 Ondansetron 4 mg ER BRIDGE 09/21/18 HCl (Zofran PRN IV 02:00 Inj) NAUSEA/VOMITI 09/22/18 01:59 NG 650 mg ER BRIDGE 09/21/18 Acetaminophen PRN PO 02:00 (Tylenol .MILD PAIN 09/22/18 01:59 Tab) 1-3 OR TEMP Procedures/MDM EKG: Rate/Rhythm: [Normal Sinus Rhythm] QRS, ST, T-waves: [No changes consistent w/ acute ischemia] Impression: [No evidence of ischemia or arrhythmia] Chest X-ray 1V Interpreted by me: Soft Tissue: No acute abnormalities Bones: No acute abnormalities Mediastinum/Cardiac Silhouette/Lungs: [No acute abnormalities] Patient's heart failure symptoms is concerning for acute decompensation and will require inpatient workup and monitoring. Further w/u for ischemia, arrhythmia, PE or dissection will be deferred to the inpatient team. Accepting Care Team: Current data and ongoing care discussed. Time: 2:15 AM Primary Provider: Hospitalist Consulting: [XOXOXO] Outstanding Data: none Departure Diagnosis: Primary Impression: Shortness of breath Condition: Serious JOSE GUADALUPE BUI Sep 21, 2018 02:36
[2018-09-21] MEDS ORDERED: NITROGLYCERIN (SL) 0.4 MG TAB SL PRN (04:30)
[2018-09-21] MEDS ORDERED: NACL 0.9% 3 ML SYG IV SCH (04:30)
[2018-09-21] MEDS ORDERED: ALBUTEROL/IPRATROPIUM (NEB) 3 ML AMP HHN PRN (04:30)
[2018-09-21] MEDS ORDERED: FUROSEMIDE 40 MG TAB PO PRN (04:30)
[2018-09-21 05:46] VITALS: Ht 170.2 cm; Wt 68.0 kg
[2018-09-21 06:15] VITALS: BP 145/97; PULSE 112; RESP 18
[2018-09-21 07:32] VITALS: BP 143/92; PULSE 104; RESP 19
--- NOTE | 2018-09-21 08:24 | HP ---
Date/Time of Note Date/Time of Note DATE: 09/21/18 TIME: 08:21 Assessment/Plan VTE Prophylaxis Pharmacological prophylaxis: heparin Lines/Catheters IV Catheter Type (from Nrs): Saline Lock Assessment/Plan Assessment/Plan 1. Acute on chronic systolic and diastolic CHF -will diurese -Continue cardiac medications 2. Cardiomyopathy with EF of 15% in stage IIIIV diastolic dysfunction -See #1 3. Hypertension: Adjust antihypertensive as needed 4. PEDRO -Check a.m. lab -Additional work-up including renal ultrasound and nephrology consult as needed 5. History of IV drug use Result Diagram: 09/21/18 0430 09/21/18 0005 Results 24hrs Laboratory Tests Test 09/21/18 00:05 09/21/18 04:30 White Blood Count 9.4 # 9.0 Red Blood Count 5.42 5.74 Hemoglobin 13.5 #L 14.1 Hematocrit 43.8 # 45.7 Mean Corpuscular Volume 80.8 L 79.6 L Mean Corpuscular Hemoglobin 24.9 L 24.6 L Mean Corpuscular Hemoglobin Concent 30.8 L 30.9 L Red Cell Distribution Width 18.3 H 18.2 H Platelet Count 300 318 Mean Platelet Volume 9.2 9.1 Immature Granulocytes % 0.300 0.300 Neutrophils % 66.4 69.5 Lymphocytes % 24.1 21.2 Monocytes % 4.4 3.9 Eosinophils % 4.1 4.2 Basophils % 0.7 0.9 Nucleated Red Blood Cells % 0.0 0.0 Immature Granulocytes # 0.030 0.030 Neutrophils # 6.2 6.3 Lymphocytes # 2.3 1.9 Monocytes # 0.4 0.4 Eosinophils # 0.4 0.4 Basophils # 0.1 0.1 Nucleated Red Blood Cells # 0.0 0.0 Sodium Level 142 Potassium Level 4.5 Chloride Level 107 Carbon Dioxide Level 26 Anion Gap 9 Blood Urea Nitrogen 21 H Creatinine 1.25 H Est Glomerular Filtrat Rate mL/min > 60 Glucose Level 104 Calcium Level 9.2 Total Bilirubin 1.6 H Direct Bilirubin 0.00 Indirect Bilirubin 1.6 H Aspartate Amino Transf (AST/SGOT) 28 Alanine Aminotransferase (ALT/SGPT) 33 Alkaline Phosphatase 116 Troponin I 0.070 0.072 B-Type Natriuretic Peptide 3780 H Total Protein 7.9 Albumin 4.1 Globulin 3.80 H Albumin/Globulin Ratio 1.07 Creatine Kinase 77 Creatine Kinase Index 3.0 Creatinine Kinase MB (Mass) 2.31 HPI/ROS Admit Date/Time Admit Date/Time Sep 21, 2018 at 01:59 Hx of Present Illness Patient is a 50-year-old male with a history of hypertension, cardiomyopathy was systolic dysfunction with EF of 15% status post AICD, IV drug use. Patient presented to ER complaining of shortness of breath. He has chronic shortness of breath, which has recently been progressively getting worse. Reported occasional chest pain. When he presented to the ER chest x-ray shows no acute findings. BNP 3800. Creatinine 1.25. PMH/Family/Social Past Medical History Past Surgical Hx: other (see HPI) Family History Significant Family History: no pertinent family hx Social History Alcohol Use: none Smoking Status: Never smoker Drug Use: none Exam Constitutional: No acute distress Head: normocephalic, atraumatic Eyes: EOMI, PERRL Respiratory: no distress Cardiovascular: regular rate and rhythm Gastrointestinal: soft Extremities: normal pulses Medications Current Medications IV Flush (NS 3 ml) 3 ml PER PROTOCOL IV ; Start 09/21/18 at 04:30 Ondansetron HCl (Zofran Inj) 4 mg Q6H PRN IV NAUSEA/VOMITING; Start 09/21/18 at 04:30 Nitroglycerin (Nitroglycerin (Sl Tab) 0.4 Mg) 1 tab Q5M PRN SL .CHEST PAIN; Start 09/21/18 at 04:30 Acetaminophen (Tylenol Tab) 650 mg Q6H PRN PO .PAIN 1-3 OR TEMP; Start 09/21/18 at 04:30 Heparin Sodium (Porcine) (Heparin (5000 Units/1ml)) 5,000 unit Q12 SC ; Start 09/21/18 at 09:00 Albuterol/ Ipratropium (Duoneb) 3 ml Q2H RESP THERAPY PRN HHN SHORTNESS OF BREATH; Start 09/21/18 at 04:30 Carvedilol (Coreg) 6.25 mg BID PO ; Start 09/21/18 at 09:00 Digoxin (Digoxin) 0.125 mg DAILY@13 PO ; Start 09/21/18 at 13:00 Furosemide (Lasix) 40 mg DAILY PRN PO swelling of lower extremities; Start 09/06 08/25 at 04:30 Lisinopril (Zestril) 10 mg DAILY PO ; Start 09/21/18 at 09:00 Ferrous Sulfate (Ferrous Sulfate (Ec)) 325 mg DAILY PO ; Start 09/21/18 at 09:00 Coded Allergies: No Known Allergy (Unverified , 06/15/18) Past Surgical History Past Surgical Hx: other Family History Significant Family History: no pertinent family hx Social History Smoking Status: Current every day smoker Exam/Review of Systems Vital Signs Vitals Vital Signs Date Temp Pulse Resp B/P (MAP) Pulse Ox O2 O2 Flow FiO2 Time Delivery Rate 09/21/18 98.2 104 19 143/92 96 Nasal 2.0 07:32 (109) Cannula JOSE GUADALUPE IBARRA MD Sep 21, 2018 08:24
[2018-09-21] MEDS ORDERED: LISINOPRIL 10 MG TAB PO SCH (09:00)
[2018-09-21] MEDS ORDERED: FERROUS SULFATE (EC) 325 MG TAB PO SCH (09:00)
[2018-09-21] MEDS: HEPARIN 5,000 UNIT/1 ML VIAL SC SCH ×2 (09:09→20:31)
[2018-09-21 11:25] VITALS: BP 132/99; PULSE 98; RESP 18
--- NOTE | 2018-09-21 12:10 | PN ---
Date/Time of Note Date/Time of Note DATE: 09/21/18 TIME: 12:02 Assessment/Plan VTE Prophylaxis Risk score (from Ns)>0 risk: 1 [place] [facility] SCD contraindicated: other Pharmacological prophylaxis: heparin Lines/Catheters IV Catheter Type (from [facility]): Saline Lock Assessment/Plan Hospital Course S: Patient states less shortness of breath now. Waiting to be seen by cardiol ogy team. O: VS- see below PE: Gen: Lying in bed, no acute distress Head: Atraumatic Eyes: Normal Conjunctiva ENT: Normal External Ears, Nose and Mouth. Neck: Full range of motion. No meningismus. Resp: Clear to auscultation bilaterally Cardio: Regular rate and rhythm, no murmurs Abd: Soft, non tender, non distended. Normal bowel sounds Ext: No bilateral lower extremity edema Neuro: No focal deficits Assessment/Plan: 42-year-old male who presents with: 1. Acute on chronic systolic and diastolic CHF; symptoms previous slowly improving after patient got IV Lasix in the ER -For now continue to diurese -Continue cardiac medications, follow-up cardiology recommendations 2. Cardiomyopathy with EF of 15% in stage IIIIV diastolic dysfunction -See #1 3. Hypertension: Presently stable -Monitor, adjust antihypertensive as needed 4. PEDRO: Creatinine minimally elevated -Monitor, check a.m. lab -Additional work-up including renal ultrasound and nephrology consult as needed 5. History of IV drug use: Counseled on cessation Result Diagram: 09/21/18 0430 09/21/18 0430 Results 24hrs Laboratory Tests Test 09/21/18 00:05 09/21/18 04:30 White Blood Count 9.4 # 9.0 Red Blood Count 5.42 5.74 Hemoglobin 13.5 #L 14.1 Hematocrit 43.8 # 45.7 Mean Corpuscular Volume 80.8 L 79.6 L Mean Corpuscular Hemoglobin 24.9 L 24.6 L Mean Corpuscular Hemoglobin Concent 30.8 L 30.9 L Red Cell Distribution Width 18.3 H 18.2 H Platelet Count 300 318 Mean Platelet Volume 9.2 9.1 Immature Granulocytes % 0.300 0.300 Neutrophils % 66.4 69.5 Lymphocytes % 24.1 21.2 Monocytes % 4.4 3.9 Eosinophils % 4.1 4.2 Basophils % 0.7 0.9 Nucleated Red Blood Cells % 0.0 0.0 Immature Granulocytes # 0.030 0.030 Neutrophils # 6.2 6.3 Lymphocytes # 2.3 1.9 Monocytes # 0.4 0.4 Eosinophils # 0.4 0.4 Basophils # 0.1 0.1 Nucleated Red Blood Cells # 0.0 0.0 Sodium Level 142 143 Potassium Level 4.5 4.5 Chloride Level 107 106 Carbon Dioxide Level 26 23 Anion Gap 9 14 H Blood Urea Nitrogen 21 H 23 H Creatinine 1.25 H 1.15 Est Glomerular Filtrat Rate mL/min > 60 > 60 Glucose Level 104 106 Calcium Level 9.2 9.8 Total Bilirubin 1.6 H 1.6 H Direct Bilirubin 0.00 0.00 Indirect Bilirubin 1.6 H 1.6 H Aspartate Amino Transf (AST/SGOT) 28 70 #H Alanine Aminotransferase (ALT/SGPT) 33 32 Alkaline Phosphatase 116 135 H Troponin I 0.070 0.072 B-Type Natriuretic Peptide 3780 H Total Protein 7.9 8.8 H Albumin 4.1 4.6 Globulin 3.80 H 4.20 H Albumin/Globulin Ratio 1.07 1.09 Magnesium Level 2.1 Creatine Kinase 77 Creatine Kinase Index 3.0 Creatinine Kinase MB (Mass) 2.31 Exam/Review of Systems Exam Vitals Vital Signs Date Temp Pulse Resp B/P (MAP) Pulse Ox O2 O2 Flow FiO2 Time Delivery Rate 09/21/18 98.2 98 18 132/99 97 Nasal 2.0 11:25 (110) Cannula Results Results 24hrs Laboratory Tests Test 09/21/18 00:05 09/21/18 04:30 White Blood Count 9.4 # 9.0 Red Blood Count 5.42 5.74 Hemoglobin 13.5 #L 14.1 Hematocrit 43.8 # 45.7 Mean Corpuscular Volume 80.8 L 79.6 L Mean Corpuscular Hemoglobin 24.9 L 24.6 L Mean Corpuscular Hemoglobin Concent 30.8 L 30.9 L Red Cell Distribution Width 18.3 H 18.2 H Platelet Count 300 318 Mean Platelet Volume 9.2 9.1 Immature Granulocytes % 0.300 0.300 Neutrophils % 66.4 69.5 Lymphocytes % 24.1 21.2 Monocytes % 4.4 3.9 Eosinophils % 4.1 4.2 Basophils % 0.7 0.9 Nucleated Red Blood Cells % 0.0 0.0 Immature Granulocytes # 0.030 0.030 Neutrophils # 6.2 6.3 Lymphocytes # 2.3 1.9 Monocytes # 0.4 0.4 Eosinophils # 0.4 0.4 Basophils # 0.1 0.1 Nucleated Red Blood Cells # 0.0 0.0 Sodium Level 142 143 Potassium Level 4.5 4.5 Chloride Level 107 106 Carbon Dioxide Level 26 23 Anion Gap 9 14 H Blood Urea Nitrogen 21 H 23 H Creatinine 1.25 H 1.15 Est Glomerular Filtrat Rate mL/min > 60 > 60 Glucose Level 104 106 Calcium Level 9.2 9.8 Total Bilirubin 1.6 H 1.6 H Direct Bilirubin 0.00 0.00 Indirect Bilirubin 1.6 H 1.6 H Aspartate Amino Transf (AST/SGOT) 28 70 #H Alanine Aminotransferase (ALT/SGPT) 33 32 Alkaline Phosphatase 116 135 H Troponin I 0.070 0.072 B-Type Natriuretic Peptide 3780 H Total Protein 7.9 8.8 H Albumin 4.1 4.6 Globulin 3.80 H 4.20 H Albumin/Globulin Ratio 1.07 1.09 Magnesium Level 2.1 Creatine Kinase 77 Creatine Kinase Index 3.0 Creatinine Kinase MB (Mass) 2.31 Medications Medication Current Medications IV Flush (NS 3 ml) 3 ml PER PROTOCOL IV ; Start 09/21/18 at 04:30 Ondansetron HCl (Zofran Inj) 4 mg Q6H PRN IV NAUSEA/VOMITING; Start 09/21/18 at 04:30 Nitroglycerin (Nitroglycerin (Sl Tab) 0.4 Mg) 1 tab Q5M PRN SL .CHEST PAIN; Start 09/21/18 at 04:30 Acetaminophen (Tylenol Tab) 650 mg Q6H PRN PO .PAIN 1-3 OR TEMP; Start 09/21/18 at 04:30 Heparin Sodium (Porcine) (Heparin (5000 Units/1ml)) 5,000 unit Q12 SC Last administered on 09/21/18at 09:09; Admin Dose 5,000 UNIT; Start 09/21/18 at 09:00 Albuterol/ Ipratropium (Duoneb) 3 ml Q2H RESP THERAPY PRN HHN SHORTNESS OF BREATH; Start 09/21/18 at 04:30 Carvedilol (Coreg) 6.25 mg BID PO Last administered on 09/21/18 08:22; Admin Dose 6.25 MG; Start 09/21/18 at 09:00 Digoxin (Digoxin) 0.125 mg DAILY@13 PO ; Start 09/21/18 at 13:00 Furosemide (Lasix) 40 mg DAILY PRN PO swelling of lower extremities; Start 09/21/18 at 04:30 Lisinopril (Zestril) 10 mg DAILY PO Last administered on 09/21/18at 08:22; Admin Dose 10 MG; Start 09/21/18 at 09:00 Ferrous Sulfate (Ferrous Sulfate (Ec)) 325 mg DAILY PO Last administered on 09/21/18at 08:22; Admin Dose 325 MG; Start 09/21/18 at 09:00 VENKATA MENDOZA Sep 21, 2018 12:10
[2018-09-21] MEDS ORDERED: DIGOXIN 0.125 MG TAB PO SCH (13:00)
[2018-09-21] MEDS: FUROSEMIDE 20 MG INJ IV SCH ×2 (13:16→20:25)
[2018-09-21 15:10] VITALS: BP 140/89; PULSE 102; RESP 16
[2018-09-21 20:06] VITALS: BP 130/90; PULSE 98; RESP 18
[2018-09-22 00:01] VITALS: BP 100/57; PULSE 82; RESP 18
[2018-09-22 04:44] VITALS: BP 125/86; PULSE 104; RESP 18
[2018-09-22] MEDS: FUROSEMIDE 20 MG INJ IV SCH (05:06)
[2018-09-22 07:15] VITALS: BP 130/90; PULSE 96; RESP 20
--- NOTE | 2018-09-22 08:52 | DS ---
Date/Time of Note Date/Time of Note DATE: 09/22/18 TIME: 08:52 Discharge Summary Admission/Discharge Info Admit Date/Time Sep 21, 2018 at 01:59 Discharge Date/Time Discharge Diagnosis pt left AMA Patient Condition: Serious Hospital Course S: Patient states less shortness of breath now. Waiting to be seen by cardiology team. O: VS- see below PE: Gen: Lying in bed, no acute distress Head: Atraumatic Eyes: Normal Conjunctiva ENT: Normal External Ears, Nose and Mouth. Neck: Full range of motion. No meningismus. Resp: Clear to auscultation bilaterally Cardio: Regular rate and rhythm, no murmurs Abd: Soft, non tender, non distended. Normal bowel sounds Ext: No bilateral lower extremity edema Neuro: No focal deficits Assessment/Plan: 42-year-old male who presents with: 1. Acute on chronic systolic and diastolic CHF; symptoms previous slowly improving after patient got IV Lasix in the ER -For now continue to diurese -Continue cardiac medications, follow-up cardiology recommendations 2. Cardiomyopathy with EF of 15% in stage IIIIV diastolic dysfunction -See #1 3. Hypertension: Presently stable -Monitor, adjust antihypertensive as needed 4. PEDRO: Creatinine minimally elevated -Monitor, check a.m. lab -Additional work-up including renal ultrasound and nephrology consult as needed 5. History of IV drug use: Counseled on cessation Home Meds Active Scripts Ferrous Sulfate (Ferrous Sulfate) 325 Mg Tablet.dr, 325 MG PO DAILY for 30 Days, #30 TAB 6 Refills Prov:ESTHER TABARES MD 06/13/18 Digoxin* (Digitek*) 125 Mcg Tablet, 0.125 MG PO DAILY@13 for 30 Days, #30 TAB 6 Refills Prov:ESTHER TABARES MD 06/13/18 Carvedilol* (Carvedilol*) 6.25 Mg Tablet, 6.25 MG PO BID for 30 Days, #60 TAB 6 Refills Prov:ESTHER TABARES MD 06/13/18 Furosemide* (Furosemide*) 40 Mg Tablet, 40 MG PO DAILY PRN for swelling of lower extremities for 30 Days, #30 TAB 6 Refills Prov:ESTHER TABARES MD 06/13/18 Lisinopril* (Lisinopril*) 10 Mg Tablet, 10 MG PO DAILY for 30 Days, #30 TAB Prov:ESTHER TABARES MD 06/13/18 Primary Care Provider [facility] Time spent on discharge: < 30 minutes VENKATA MENDOZA Sep 22, 2018 08:52
== END 2018-09-22 08:00 | disposition left against medical advice (07) | DRG 292 ==
LOC: E/R 23:48 → TEL 09-21 01:59
PROVIDERS: ADMIT Internal Medicine; ATTEND Hospitalist
DX: I11.0 Hypertensive heart disease with heart failure (principal); N17.9 Acute kidney failure, unspecified; I50.43 Acute on chronic combined systolic (congestive) and diastolic (congestive) heart failure; I42.9 Cardiomyopathy, unspecified; Z95.810 Presence of automatic (implantable) cardiac defibrillator; F17.200 Nicotine dependence, unspecified, uncomplicated
CPT/HCPCS: 36415; 71045; 80053; 82550; 82553; 83735; 83880; 84484; 85025; 93005; 96374; J1644; J1940

== ENCOUNTER 2018-09-30 21:52 | Inpatient (IN) | payer OTHER ==
[~2018-09-30] VITALS: Ht 167.6 cm; Wt 68.2 kg
[2018-09-30] MEDS ORDERED: ALBUTEROL 0.5% (NEB) 2.5 MG/0.5 ML AMP INH STA (22:20)
--- NOTE | 2018-09-30 22:27 | ERD ---
ER Documentation Chief Complaint Chief Complaint CHEST PAIN, WHEEZING, COUGHING, GAGGING STARTED 1300; DEFIB PLACED 2MONTHS HPI 42-year-old male with a history of severe cardiomyopathy with EF of 50%, V. fib cardiac arrest status post ICD placement, IV drug abuse and noncompliance presents the ED complaining of acute onset of shortness of breath and sharp, generalized, nonradiating chest pain since 1 PM. Productive cough but no hemoptysis. Mild orthopnea but no exertional dyspnea or PND. No other relieving or exacerbating factors. No URI symptoms, odynophagia or rhinorrhea. No abdominal pain, nausea, vomiting or diarrhea. No fevers or chills. ROS All systems reviewed and are negative except as per history of present illness. Medications Home Meds Active Scripts Ferrous Sulfate (Ferrous Sulfate) 325 Mg Tablet.dr, 325 MG PO DAILY for 30 Days, #30 TAB 6 Refills Prov:ESTHER TABARES MD 06/13/18 Digoxin* (Digitek*) 125 Mcg Tablet, 0.125 MG PO DAILY@13 for 30 Days, #30 TAB 6 Refills Prov:ESTHER TABARES MD 06/13/18 Carvedilol* (Carvedilol*) 6.25 Mg Tablet, 6.25 MG PO BID for 30 Days, #60 TAB 6 Refills Prov:ESTHER TABARES MD 06/13/18 Furosemide* (Furosemide*) 40 Mg Tablet, 40 MG PO DAILY PRN for swelling of lower extremities for 30 Days, #30 TAB 6 Refills Prov:ESTHER TABARES MD 06/13/18 Lisinopril* (Lisinopril*) 10 Mg Tablet, 10 MG PO DAILY for 30 Days, #30 TAB Prov:ESTHER TABARES MD 06/13/18 Allergies Allergies: Coded Allergies: No Known Allergy (Unverified , 06/15/18) PMhx/Soc History of Surgery: Yes (AICD) Anesthesia Reaction: No Hx Neurological Disorder: No Hx Respiratory Disorders: No Hx Cardiac Disorders: Yes (AICD) Hx Psychiatric Problems: No (anxiety) Hx Miscellaneous Medical Probl: No Hx Alcohol Use: Yes Hx Substance Use: No Hx Tobacco Use: Yes FmHx No family history relevant to presenting complaint Physical Exam Vitals Vital Signs Date Temp Pulse Resp B/P (MAP) Pulse Ox O2 O2 Flow FiO2 Time Delivery Rate 10/01/18 98.9 105 19 130/113 100 BIPAP 00:00 (119) 09/30/18 101 100 40 22:34 09/30/18 98.9 109 19 112/90 94 Non 15.0 22:10 (97) Rebreather 09/30/18 Non 15 22:10 Rebreather 09/30/18 98.9 94 19 112/90 94 22:02 (97) Physical Exam Const: No acute distress Head: Atraumatic Eyes: Normal Conjunctiva ENT: Normal External Ears, Nose and Mouth. Neck: Full range of motion. No meningismus. Resp: Clear to auscultation bilaterally Cardio: Regular rate and rhythm, no murmurs Abd: Soft, non tender, non distended. Normal bowel sounds Skin: No petechiae or rashes Back: No midline or flank tenderness Ext: No cyanosis, or edema Neur: Awake and alert Psych: Normal Mood and Affect Result Diagram: 10/01/18 0500 10/01/18 0500 Results 24 hrs Laboratory Tests Test 09/30/18 22:30 White Blood Count 7.1 10^3/ul Red Blood Count 4.96 10^6/ul Hemoglobin 12.9 g/dl Hematocrit 40.8 % Mean Corpuscular Volume 82.3 fl Mean Corpuscular Hemoglobin 26.0 pg Mean Corpuscular Hemoglobin Concent 31.6 g/dl Red Cell Distribution Width 17.7 % Platelet Count 293 10^3/UL Mean Platelet Volume 9.7 fl Immature Granulocytes % 0.300 % Neutrophils % 54.6 % Lymphocytes % 35.3 % Monocytes % 6.5 % Eosinophils % 2.3 % Basophils % 1.0 % Nucleated Red Blood Cells % 0.0 /100WBC Immature Granulocytes # 0.020 10^3/ul Neutrophils # 3.9 10^3/ul Lymphocytes # 2.5 10^3/ul Monocytes # 0.5 10^3/ul Eosinophils # 0.2 10^3/ul Basophils # 0.1 10^3/ul Nucleated Red Blood Cells # 0.0 10^3/ul Prothrombin Time 14.5 Sec Prothrombin Time Ratio 1.1 INR International Normalized Ratio 1.12 Activated Partial Thromboplast Time 31.5 Sec Sodium Level 140 mmol/L Potassium Level 4.0 mmol/L Chloride Level 103 mmol/L Carbon Dioxide Level 27 mmol/L Anion Gap 10 Blood Urea Nitrogen 19 mg/dl Creatinine 1.52 mg/dl Est Glomerular Filtrat Rate mL/min 51 mL/min Glucose Level 101 mg/dl Calcium Level 9.1 mg/dl Troponin I 0.042 ng/ml Digoxin Level < 0.4 ng/ml Ethyl Alcohol Level < 10.0 mg/dl Current Medications Medications Dose Sig/Love Start Time Status Last (Trade) Ordered Route PRN Stop Time Admin Dose Reason Admin Albuterol 10 mg ONCE STAT 09/30/18 DC 09/30/18 (Proventil INH 22:20 22:41 0.5% (Neb)) 09/30/18 22:25 Furosemide 40 mg ONCE ONCE 09/30/18 DC 09/30/18 (Lasix) IV 22:30 22:45 09/30/18 22:31 Aspirin 325 mg ONCE ONCE 10/01/18 DC 10/01/18 (Aspirin) PO 00:00 00:40 10/01/18 00:10 Procedures/MDM DOCUMENTS REVIEWED: ED nurse, prior ED, prior records EKG: Time: 2158. Sinus rhythm. Normal MD interval. Prolonged QRS of 126 ms. Nonspecific intraventricular block. No acute ST segment elevation or depression. No ectopy. Unchanged from prior. My Interpretation IMAGING: Chest AP portable: Cardiomegaly. Cardiac rhythm device with wires intact. No effusions or infiltrates. No mediastinal widening. Critical Care Time: 35 minutes Treatments/Evaluations: Close monitoring and treatment of unstable vital signs, cardiorespiratory, and neurologic status, while maintaining tight balance of fluid, respiratory, and cardiac interventions. This time includes discussing the case with the patient. This time does not include all procedures stated elsewhere in this record. This time also includes reviewing old records, labs and radiological studies. This time includes examining and re-examining the patient. Additionally, this time also includes arranging for admission and ongoing care with the admitting physician. [employer] DECISION MAKIN-year-old male with a history of severe cardiomyopathy with EF of 50%, V. fib cardiac arrest status post ICD placement, IV drug abuse and noncompliance presents the ED complaining of acute onset of shortness of breath and sharp, generalized, nonradiating chest pain since 1 PM. CBC reveals borderline anemia but no leukocytosis or thrombocytopenia. Chemistry remarkable for elevated creatinine consistent with prior results but no electrolyte abnormalities or hyperglycemia. Troponin is mildly elevated at 0.042 which is actually improved from 0.072 during his previous admission. Chest x-ray is unremarkable for CHF or pneumonia. EKG is unchanged from prior without evidence of acute ischemia or dysrhythmia. Patient treated aggressively with BiPAP and diuretics with good response. Ongoing chest pain of uncertain etiology. Presentation not consistent with pulmonary embolism or aortic dissection and CT angiography is not indicated at this point. There are decision-making with the patient and the decision has been made to admit the patient for further evaluation and management. Counseled patient regarding diagnostic workup, diagnosis and need for followup. Understands to return to ED if symptoms recur, worsen or any other concerns. Departure Diagnosis: Primary Impression: Acute on chronic systolic CHF (congestive heart failure) Additional Impressions: Chest pain Chest pain type: unspecified Qualified Codes: R07.9 - Chest pain, unspecified Elevated troponin Cardiomyopathy Cardiomyopathy type: unspecified Qualified Codes: I42.9 - Cardiomyopathy, unspecified AICD (automatic cardioverter/defibrillator) present Condition: Serious GYPSY AGGARWAL MD Sep 30, 2018 22:27
[2018-09-30] MEDS ORDERED: FUROSEMIDE 40 MG INJ IV ONE (22:30)
[2018-10-01] MEDS ORDERED: ASPIRIN 325 MG TAB PO ONE
[2018-10-01] MEDS ORDERED: ONDANSETRON 4 MG INJ IV PRN ×2 (00:30→01:00)
[2018-10-01] MEDS ORDERED: ACETAMINOPHEN 325 MG TAB PO PRN ×2 (00:30→01:00)
[2018-10-01] MEDS ORDERED: DOCUSATE SODIUM 100 MG CAP PO PRN (01:00)
[2018-10-01] MEDS ORDERED: NACL 0.9% 3 ML SYG IV SCH (01:00)
[2018-10-01] MEDS ORDERED: NITROGLYCERIN (SL) 0.4 MG TAB SL PRN (01:00)
[2018-10-01] MEDS ORDERED: FUROSEMIDE 40 MG TAB PO PRN (01:00)
[2018-10-01] MEDS ORDERED: morphine 2 MG INJ IV PRN (01:00)
[2018-10-01] MEDS: HEPARIN 5,000 UNIT/1 ML VIAL SC SCH ×5 (01:00→21:01)
[2018-10-01] MEDS ORDERED: BISACODYL (EC) 5 MG TAB PO PRN (01:00)
[2018-10-01 02:43] VITALS: Ht 167.6 cm; Wt 68.2 kg
[2018-10-01 02:51] VITALS: BP 115/82; PULSE 97; RESP 20
[2018-10-01 04:00] VITALS: BP 141/96; PULSE 94; RESP 17
--- NOTE | 2018-10-01 04:58 | HP ---
Date/Time of Note Date/Time of Note DATE: 10/01/18 TIME: 04:49 Assessment/Plan VTE Prophylaxis Pharmacological prophylaxis: heparin Lines/Catheters IV [facility] Saline Lock Urinary Cath still in place: No Assessment/Plan Hospital Course This is a 41 mm being admitted to the telemetry floor for: 1. Acute respiratory distress: Secondary to underlying CHF. Currently on BiPAP. Will titrate as indicated. 2. chest pain: Rule out ACS versus CHF exacerbation: Patient does not appear to be overtly volume overloaded, he does have rales at the bases. He was placed on BiPAP. Was also given a dose of Lasix with good response. Will trend cardiac enzymes x3, the first that was negative. Previous echocardiogram in May 2018 showed an ejection fraction of 15% with severe diastolic dysfunction. We will continue patient's prescribed medications and though he does not take them at home. Will consult cardiology 3. Mild acute on chronic systolic/diastolic CHF exacerbation: History of 15% ejection fraction with severe diastolic dysfunction. He does not appear to be overtly volume overloaded but he does have crackles at the bases. He did receive a dose of Lasix in the emergency department. Will resume his home Lasix in the morning. And reassess may need additional IV doses. There is also concern the patient may have also used illicit drugs though he states it was a few days ago. Will check urine drug screen and ethanol. Will resume patient's previously prescribed medications of beta-lucille/digoxin/COURTNEY inhibitor. Will check a dig level 4. Hypertension: Resume previously prescribed meds and adjust as needed 5. PEDRO: Possibly secondary to hemodynamics. He does have some crackles at the bases however the rest of his body he does appear to be intravascularly depleted. He did receive Lasix in the ED. Will monitor renal function. He may need actual gentle hydration once his exacerbation is under control. 6. History of illicit drug use: Patient reports that he last used methamphetamine a few days ago. He is still a smoker. Encourage cessation. LA N Ativan for withdrawal. Will check urine drug screen ethanol level. 7: DVT GI prophylaxis: Heparin subcu, no GI prophylaxis indicated Further treatment strategy will be implemented as per the clinical course Result Diagram: 09/30/18222909/30/182229 Results 24hrs Laboratory Tests Test 09/30/18 22:30 White Blood Count 7.1 # Red Blood Count 4.96 Hemoglobin 12.9 L Hematocrit 40.8 L Mean Corpuscular Volume 82.3 Mean Corpuscular Hemoglobin 26.0 L Mean Corpuscular Hemoglobin Concent 31.6 L Red Cell Distribution Width 17.7 H Platelet Count 293 Mean Platelet Volume 9.7 Immature Granulocytes % 0.300 Neutrophils % 54.6 Lymphocytes % 35.3 Monocytes % 6.5 Eosinophils % 2.3 Basophils % 1.0 Nucleated Red Blood Cells % 0.0 Immature Granulocytes # 0.020 Neutrophils # 3.9 Lymphocytes # 2.5 Monocytes # 0.5 Eosinophils # 0.2 Basophils # 0.1 Nucleated Red Blood Cells # 0.0 Prothrombin Time 14.5 Prothrombin Time Ratio 1.1 INR International Normalized Ratio 1.12 Activated Partial Thromboplast Time 31.5 Sodium Level 140 Potassium Level 4.0 Chloride Level 103 Carbon Dioxide Level 27 Anion Gap 10 Blood Urea Nitrogen 19 Creatinine 1.52 H Est Glomerular Filtrat Rate mL/min 51 L Glucose Level 101 Calcium Level 9.1 Troponin I 0.042 Digoxin Level < 0.4 L HPI/ROS Admit Date/Time Admit Date/Time Oct 01, 2018 at 00:18 Hx of Present Illness Chief complaint: Chest pain, shortness of breath 42-year-old male with a history of severe cardiomyopathy with EF of 15%, V. fib cardiac arrest status post ICD placement, illicit drug abuse and noncompliance with medications presents the ED complaining of acute onset of shortness of breath and sharp, generalized, nonradiating chest pain since 1 PM. Productive cough but no hemoptysis. Mild orthopnea but no exertional dyspnea or PND. No other relieving or exacerbating factors. No URI symptoms, odynophagia or rhinorrhea. No abdominal pain, nausea, vomiting or diarrhea. No fevers or c hills. He does use methamphetamine but he states that he last used it a few days ago. Allergies: NKDA Medications: Patient is noncompliant with medications his previous medications are below Carvedilol 6.25 mg p.o. twice daily Digoxin 125 mcg p.o. daily Ferrous sulfate 325 mg p.o. daily Lasix 40 mg p.o. daily Lisinopril 10 mg p.o. daily medications ROS As per HPI const: Negative for fever, chills, weight gain or weight loss, fatigue, or diaphoresis Eyes : No pain discharge or redness or change in visual acuity ENT: No pain, sore throat, congestion, congestion, dysphagia or discharge Respiratory: As per HPI Cardiovascular: As per HPI GI : no change in appetite, abdominal pain, nausea, vomiting, diarrhea, constipation, or change in the color his stool Genitourinary: No dysuria, hematuria, flank pain , discharge or CVA tenderness Musculoskeletal: No joint pain, back pain, neck pain, restricted range of motion in neck or joints Skin: No rash, bruising or hives Neuro: No headache, dizziness, syncope, seizure, focal weakness Endocrine: No polyuria, polydipsia, temperature intolerance Psych: No hallucination, depression, anxiety or suicidal ideation PMH/Family/Social Past Medical History hypertension, cardiomyopathy was systolic dysfunction with EF of 15% status post AICD, illicit drug use, history of V. fib cardiac arrest Medications Current Medications Ondansetron HCl (Zofran Inj) 4 mg ER BRIDGE PRN IV NAUSEA/VOMITING; Start 10/01/18 at 00:30; Stop 10/02/18 at 00:29 Acetaminophen (Tylenol Tab) 650 mg ER BRIDGE PRN PO .MILD PAIN 1-3 OR TEMP; Start 10/01/18 at 00:30; Stop 10/02/18 at 00:29 IV Flush (NS 3 ml) 3 ml PER PROTOCOL IV ; Start 10/01/18 at 01:00 Lorazepam (Ativan) 1 mg Q4 PRN IV CONTROL WITHDRAWAL SYMPTOMS; Start 10/01/18 at 01:00 Ondansetron HCl (Zofran Inj) 4 mg Q6H PRN IV NAUSEA/VOMITING; Start 10/01/18 at 01:00 Aspirin (Aspirin) 81 mg DAILY PO ; Start 10/01/18 at 09:00 Nitroglycerin (Nitroglycerin (Sl Tab) 0.4 Mg) 1 tab Q5M PRN SL .CHEST PAIN; Start 10/01/18 at 01:00 Acetaminophen (Tylenol Tab) 650 mg Q6H PRN PO .PAIN 1-3 OR TEMP; Start 10/01/18 at 01:00 Morphine Sulfate (morphine) 2 mg Q4H PRN IV .PAIN 7-10; Start 10/01/18 at 01:00 Docusate Sodium (Colace) 100 mg Q12H PRN PO .CONSTIPATION; Start 10/01/18 at 01:00 Bisacodyl (Dulcolax) 5 mg DAILY PRN PO .CONSTIPATION; Start 10/01/18 at 01:00 Heparin Sodium (Porcine) (Heparin (5000 Units/1ml)) 5,000 unit Q8 SC ; Start 10/01/18 at 01:00 Digoxin (Digoxin) 0.125 mg DAILY@13 PO ; Start 10/01/18 at 13:00 Furosemide (Lasix) 40 mg DAILY@0600 PRN PO swelling of lower extremities; Start 10/01/18 at 01:00 Lisinopril (Zestril) 10 mg DAILY PO ; Start 10/01/18 at 09:00 Ferrous Sulfate (Ferrous Sulfate (Ec)) 325 mg DAILY PO ; Start 10/01/18 at 09:00 Coded Allergies: No Known Allergy (Unverified , 06/15/18) Past Surgical History ICD placement Past Surgical Hx: other Family History Significant Family History: no pertinent family hx Social History Methamphetamine use Smoking Status: Current every day smoker Drug Use: other (Methamphetamine) Exam/Review of Systems Vital Signs Vitals Vital Signs Date Temp Pulse Resp B/P (MAP) Pulse Ox O2 O2 Flow FiO2 Time Delivery Rate 10/01/18 98.6 94 17 141/96 97 Room Air 04:00 (111) 10/01/18 00:00 09/30/18 40 22:34 Intake and Output 09/30/18 09/30/18 10/01/18 1515:00 23:00 07:00 IntakeIntake Total 120 ml BalanceBalance 120 ml Exam Exam General: Currently sitting upright in bed on BiPAP HEENT: Atraumatic, normocephalic. The pupils are equal, round and reactive. Extraocular motor are intact Neck: Supple with full range of motion. No rigidity or meningismus Chest: Nontender Lungs: Questionable rales at the bases bilaterally, mild increased work of breathing Heart: Normal S1-S2, Regular rhythm and rate. No murmur, S3, or S4 Abdomen: Soft , nontender, nondistended , bowel sounds are present. No guarding no rebound tenderness , No masses or organomegaly. No costovertebral temporal angle mass Extremities: Normal to inspection, no edema no cyanosis Neurologic: Normal mental status, speech normal, cranial nerves II through XII are intact, motor and sensory are intact, no focal weakness Additional Comments EKG: Sinus rhythm. Normal LA interval. Prolonged QRS of 126 ms. Nonspecific intraventricular block. No acute ST segment elevation or depression. No ectopy. Conclusions: Normal left ventricular wall thickness. Severe enlargement of left ventricle cavity. Severe left ventricular systolic dysfunction. Ejection fraction is visually estimated at 15 %. Tissue Doppler/Mitral Doppler indices are consistent with restrictive physiology with markedly elevated left atrial pressure (Stage III-IV diastolic dysfunction). E/E'= 30. There is mild enlargement of left atrium. LA Volume Index= 45. Mitral valve leaflets appear mildly thickened. Mild to moderate mitral valve regurgitation. No significant aortic stenosis or insufficiency. Normal trileaflet aortic valve structure. Aortic cusps appear mildly calcified. Normal appearance of the tricuspid valve. Estimated peak PA systolic pressure 51 mmHg. There is mild to moderate tricuspid regurgitation. Electronically Signed By: Jarek Mejia 2018-06-05 14:01:30 CALEB WATT Oct 01, 2018 04:58
[2018-10-01 07:21] VITALS: BP 131/98; PULSE 95; RESP 16
[2018-10-01] MEDS: ASPIRIN 81 MG TAB PO SCH (08:05)
[2018-10-01] MEDS: FERROUS SULFATE (EC) 325 MG TAB PO SCH (08:06)
[2018-10-01] MEDS: LISINOPRIL 10 MG TAB PO SCH (08:06)
--- NOTE | 2018-10-01 10:48 | PN ---
Date/Time of Note Date/Time of Note DATE: 10/01/18 TIME: 10:47 Assessment/Plan VTE Prophylaxis Risk score (from Ns)>0 risk: 1 SCD applied (from Ns): No SCD contraindicated: other Pharmacological prophylaxis: NA/contraindicated Pharm contraindication: low risk/ambulating Lines/Catheters [facility] Peripheral IV Urinary Cath still in place: No Assessment/Plan Hospital Course SUBJECTIVE: Denies any dyspnea or chest pain at this time. OBJECTIVE: Physical Exam General: Adequately build 42 year-old male lying in bed in no apparent distress. HEENT: Normocephalic, atraumatic. Eyes: Anicteric sclerae, conjunctivae clear. ENT: Nasal septum midline, oral mucosa moist. Neck supple. Respiratory: Bilaterally diminished breath sounds. No use of accessory muscles of respiration. No adventitious breath sounds. Cardiovascular: S1, S2 heard. No murmurs or gallops. Abdomen: Soft, nontender, and nondistended. Bowel sounds positive in all 4 quadrants. Genitourinary: Deferred. Extremities: No cyanosis, no clubbing, no edema. Peripheral pulses palpable. Neurologic: Cranial nerves II through XII grossly intact. The patient is awake, alert, and oriented. Skin: Normal skin turgor. No skin rashes. Labs & Vitals per chart ASSESSMENT & PLAN 42-year-old male past medical history of cardiomyopathy with ejection fraction of 15%, V. fib cardiac arrest, status post AICD placement, pulmonary hypertension, and substance abuse who presented to the emergency room with chief complaint of chest pain and dyspnea, who was admitted to inpatient setting for further treatment and evaluation. 1. Acute on chronic congestive heart failure exacerbation, systolic dysfuncti on. Continue diuresis while carefully monitoring renal function. Continue supplemental oxygen as needed. 2. Cardiomyopathy with ejection fraction of 15%. Status post AICD placement. Continue COURTNEY inhibitors, beta-blockers, and digoxin. 3. Pulmonary hypertension. Most probably secondary to left-sided heart disease. Continue supplemental oxygen as needed. Continue diuretic therapy. 4. Microcytic, hypochromic anemia. The patient already on iron supplements. 5. Substance abuse. Urine drug screen negative for any amphetamines. Cessation advised. 6. Fluids, electrolytes, and nutrition. Low-cholesterol diet. 7. DVT prophylaxis. Bilateral SCDs. 8. Plan. Continue diuretic therapy while carefully monitor renal function. Await cardiology evaluation. The patient was seen in collaboration with Dr. Malagon. Result Diagram: 10/01/18 0500 10/01/18 0500 Results 24hrs Laboratory Tests Test 09/30/18 22:30 10/01/18 01:28 10/01/18 04:59 10/01/18 05:00 White Blood Count 7.1 # 6.8 Red Blood Count 4.96 5.00 Hemoglobin 12.9 L 12.8 L Hematocrit 40.8 L 40.2 L Mean Corpuscular 82.3 80.4 L Volume Mean Corpuscular 26.0 L 25.6 L Hemoglobin Mean Corpuscular 31.6 L 31.8 L Hemoglobin Concent Red Cell 17.7 H 18.0 H Distribution Width Platelet Count 293 299 Mean Platelet Volume 9.7 9.4 Immature 0.300 0.100 Granulocytes % Neutrophils % 54.6 60.6 Lymphocytes % 35.3 30.6 Monocytes % 6.5 5.1 Eosinophils % 2.3 2.6 Basophils % 1.0 1.0 Nucleated Red Blood 0.0 0.0 Cells % Immature 0.020 0.010 Granulocytes # Neutrophils # 3.9 4.1 Lymphocytes # 2.5 2.1 Monocytes # 0.5 0.4 Eosinophils # 0.2 0.2 Basophils # 0.1 0.1 Nucleated Red Blood 0.0 0.0 Cells # Prothrombin Time 14.5 Prothrombin Time 1.1 Ratio INR International 1.12 Normalized Ratio Activated 31.5 Partial Thromboplast Time Sodium Level 140 140 Potassium Level 4.0 3.7 Chloride Level 103 105 Carbon Dioxide Level 27 24 Anion Gap 10 11 Blood Urea Nitrogen 19 21 H Creatinine 1.52 H 1.31 H Est Glomerular 51 L > 60 Filtrat Rate mL/min Glucose Level 101 98 Calcium Level 9.1 9.2 Troponin I 0.042 0.057 Digoxin Level < 0.4 L Ethyl Alcohol Level < 10.0 H Urine Opiates Screen Negative Urine Barbiturates Negative Urine Amphetamines Negative Screen Urine Negative Benzodiazepines Screen Urine Cocaine Screen Negative Urine Cannabinoids Negative Creatine Kinase 61 Creatine Kinase 2.4 Index Creatinine Kinase MB 1.47 (Mass) Hemoglobin A1c 5.3 Magnesium Level 2.0 Total Bilirubin 1.5 H Direct Bilirubin 0.00 Indirect Bilirubin 1.5 H Aspartate Amino 33 Transf (AST/SGOT) Alanine 45 Aminotransferase (AL T/SGPT) Alkaline Phosphatase 121 Total Protein 7.5 Albumin 3.9 Globulin 3.60 H Albumin/Globulin 1.08 Ratio Triglycerides Level 104 Cholesterol Level 184 LDL Cholesterol, 141 Calculated HDL Cholesterol 22 L Cholesterol/HDL 8.3 Ratio Thyroid Stimulating 1.100 Hormone (TSH) Test 10/01/18 09:38 Creatine Kinase 56 Creatine Kinase 2.9 Index Creatinine Kinase MB 1.60 (Mass) Troponin I 0.053 Exam/Review of Systems Exam Vitals Vital Signs Date Temp Pulse Resp B/P (MAP) Pulse Ox O2 O2 Flow FiO2 Time Delivery Rate 10/01/18 97.9 95 16 131/98 96 Room Air 07:21 (109) 10/01/18 00:00 09/30/18 40 22:34 Intake and Output 09/30/18 09/30/18 10/01/18 1414:59 22:59 06:59 IntakeIntake Total 120 ml BalanceBalance 120 ml Results Results 24hrs Laboratory Tests Test 09/30/18 22:30 10/01/18 01:28 10/01/18 04:59 10/01/18 05:00 White Blood Count 7.1 # 6.8 Red Blood Count 4.96 5.00 Hemoglobin 12.9 L 12.8 L Hematocrit 40.8 L 40.2 L Mean Corpuscular 82.3 80.4 L Volume Mean Corpuscular 26.0 L 25.6 L Hemoglobin Mean Corpuscular 31.6 L 31.8 L Hemoglobin Concent Red Cell 17.7 H 18.0 H Distribution Width Platelet Count 293 299 Mean Platelet Volume 9.7 9.4 Immature 0.300 0.100 Granulocytes % Neutrophils % 54.6 60.6 Lymphocytes % 35.3 30.6 Monocytes % 6.5 5.1 Eosinophils % 2.3 2.6 Basophils % 1.0 1.0 Nucleated Red Blood 0.0 0.0 Cells % Immature 0.020 0.010 Granulocytes # Neutrophils # 3.9 4.1 Lymphocytes # 2.5 2.1 Monocytes # 0.5 0.4 Eosinophils # 0.2 0.2 Basophils # 0.1 0.1 Nucleated Red Blood 0.0 0.0 Cells # Prothrombin Time 14.5 Prothrombin Time 1.1 Ratio INR International 1.12 Normalized Ratio Activated 31.5 Partial Thromboplast Time Sodium Level 140 140 Potassium Level 4.0 3.7 Chloride Level 103 105 Carbon Dioxide Level 27 24 Anion Gap 10 11 Blood Urea Nitrogen 19 21 H Creatinine 1.52 H 1.31 H Est Glomerular 51 L > 60 Filtrat Rate mL/min Glucose Level 101 98 Calcium Level 9.1 9.2 Troponin I 0.042 0.057 Digoxin Level < 0.4 L Ethyl Alcohol Level < 10.0 H Urine Opiates Screen Negative Urine Barbiturates Negative Urine Amphetamines Negative Screen Urine Negative Benzodiazepines Screen Urine Cocaine Screen Negative Urine Cannabinoids Negative Creatine Kinase 61 Creatine Kinase 2.4 Index Creatinine Kinase MB 1.47 (Mass) Hemoglobin A1c 5.3 Magnesium Level 2.0 Total Bilirubin 1.5 H Direct Bilirubin 0.00 Indirect Bilirubin 1.5 H Aspartate Amino 33 Transf (AST/SGOT) Alanine 45 Aminotransferase (AL T/SGPT) Alkaline Phosphatase 121 Total Protein 7.5 Albumin 3.9 Globulin 3.60 H Albumin/Globulin 1.08 Ratio Triglycerides Level 104 Cholesterol Level 184 LDL Cholesterol, 141 Calculated HDL Cholesterol 22 L Cholesterol/HDL 8.3 Ratio Thyroid Stimulating 1.100 Hormone (TSH) Test 10/01/18 09:38 Creatine Kinase 56 Creatine Kinase 2.9 Index Creatinine Kinase MB 1.60 (Mass) Troponin I 0.053 Medications Medication Current Medications Ondansetron HCl (Zofran Inj) 4 mg ER BRIDGE PRN IV NAUSEA/VOMITING; Start 10/01/18 at 00:30; Stop 10/02/18 at 00:29 Acetaminophen (Tylenol Tab) 650 mg ER BRIDGE PRN PO .MILD PAIN 1-3 OR TEMP; Start 10/01/18 at 00:30; Stop 10/02/18 at 00:29 IV Flush (NS 3 ml) 3 ml PER PROTOCOL IV ; Start 10/01/18 at 01:00 Lorazepam (Ativan) 1 mg Q4 PRN IV CONTROL WITHDRAWAL SYMPTOMS; Start 10/01/18 at 01:00 Ondansetron HCl (Zofran Inj) 4 mg Q6H PRN IV NAUSEA/VOMITING; Start 10/01/18 at 01:00 Aspirin (Aspirin) 81 mg DAILY PO Last administered on 10/01/18at 08:05; Admin Dose 81 MG; Start 10/01/18 at 09:00 Nitroglycerin (Nitroglycerin (Sl Tab) 0.4 Mg) 1 tab Q5M PRN SL .CHEST PAIN; Start 10/01/18 at 01:00 Acetaminophen (Tylenol Tab) 650 mg Q6H PRN PO .PAIN 1-3 OR TEMP; Start 10/01/18 at 01:00 Morphine Sulfate (morphine) 2 mg Q4H PRN IV .PAIN 7-10; Start 10/01/18 at 01:00 Docusate Sodium (Colace) 100 mg Q12H PRN PO .CONSTIPATION; Start 10/01/18 at 0 1:00 Bisacodyl (Dulcolax) 5 mg DAILY PRN PO .CONSTIPATION; Start 10/01/18 at 01:00 Heparin Sodium (Porcine) (Heparin (5000 Units/1ml)) 5,000 unit Q8 SC ; Start 10/01/18 at 01:00 Digoxin (Digoxin) 0.125 mg DAILY@13 PO ; Start 10/01/18 at 13:00 Furosemide (Lasix) 40 mg DAILY@0600 PRN PO swelling of lower extremities; Start 10/01/18 at 01:00 Lisinopril (Zestril) 10 mg DAILY PO Last administered on 10/01/18at 08:06; Admin Dose 10 MG; Start 10/01/18 at 09:00 Ferrous Sulfate (Ferrous Sulfate (Ec)) 325 mg DAILY PO Last administered on 10/01/18at 08:06; Admin Dose 325 MG; Start 10/01/18 at 09:00 Carvedilol (Coreg) 6.25 mg BID PO Last administered on 10/01/18at 08:06; Admin Dose 6.25 MG; Start 10/01/18 at 09:00 PAPI BERUMEN NP Oct 01, 2018 10:48
[2018-10-01 11:06] VITALS: BP 128/86; PULSE 98; RESP 18
[2018-10-01] MEDS ORDERED: DIGOXIN 0.125 MG TAB PO SCH (13:00)
[2018-10-01 15:14] VITALS: BP 142/103; PULSE 99; RESP 18
--- NOTE | 2018-10-01 17:29 | RADRPT ---
Echocardiogram Report Patient Name: MIAH ENCARNACIONPatient ID: [id number] : 1975 (42y 10m)Study Date: 10/01/2018 10:24:29 AM Gender: MAccession #: [id number] Tech: Moy Weinberg [facility] Location: [facility] Ref.Physician: CALEB PAIGE Height(Cm): BSA: Weight(Kg): Quality: AdequateOrder Physician: CALEB PAIGE Account #: Procedures: Echocardiographic Report: Transthoracic echocardiogram with complete 2D, M-Mode, and doppler examination. Indications: Congestive Heart Failure, Meth use. Measurements: 2D/M Mode Doppler Measurement Value Normal Range Measurement Value Normal Range LVIDd 2D 7.2 [ 4.2 - 5.8 ] cm AV Peak Edy 1.0 [ 100.0 - 170.0 ] cm/sec LVIDs 2D 6.4 [ 2.5 - 4.0 ] cm AV Peak PG 4.0 [ 2.0 - 9.0 ] mmHg LVPWd 2D 1.0 [ 0.6 - 1.0 ] cm LVOT Peak Edy 0.6 [ 70.0 - 110.0 ] cm/sec IVSd 2D 1.0 [ 0.6 - 1.0 ] cm LVOT Peak PG 1.0 [ 2.0 - 6.0 ] mmHg AoR Diam 2D 2.8 [ 2.6 - 3.4 ] cm MV E Peak Edy 1.2 [ 60.0 - 130.0 ] cm/sec EDV 2D 271.0 [ 62.0 - 150.0 ] ml MV Decel Time 187 [ 104 - 258 ] msec ESV 2D 210.0 [ 21.0 - 61.0 ] ml TR Peak Edy 3.6 [ 100.0 - 280.0 ] cm/sec EF 2D 22.5 [ 52.0 - 72.0 ] percent TR Peak PG 53.0 mmHg LA Dimen 2D 4.2 [ 3.0 - 4.0 ] cm RVSP 63.0 [ 10.0 - 36.0 ] mmHg Findings: Left Ventricle: Normal left ventricular wall thickness. Severe enlargement of left ventricle cavity. Severe left ventricular systolic dysfunction. Ejection fraction is visually estimated at 15 %. Tissue Doppler/Mitral Doppler indices are consistent with restrictive physiology with markedly elevated left atrial pressure (Stage III-IV diastolic dysfunction). Right Ventricle: Normal right ventricular size. Normal right ventricular systolic function. Linear artifact in right ventricle suggestive of catheter, pacer lead, or ICD lead. Left Atrium: There is mild enlargement of left atrium. Right Atrium: There is mild enlargement of right atrium. Mitral Valve: Mild mitral leaflet calcification. Mild mitral annular calcification. Moderate mitral valve regurgitation. The regurgitation jet is eccentrically directed which may underestimate the severity of mitral regurgitation. Aortic Valve: No significant aortic stenosis or insufficiency. Aortic cusps appear mildly calcified. Tricuspid Valve: The estimated Peak RVSP is 63 mmHg. Tricuspid valve appears mildly thickened. There is mild tricuspid regurgitation. Pericardium: Normal pericardium with no significant pericardial effusion. Aorta: Normal aortic root. IVC: Dilated IVC with poor respiratory collapse consistent with elevated right atrial pressure. Conclusions: Normal left ventricular wall thickness. Severe enlargement of left ventricle cavity. Severe left ventricular systolic dysfunction. Ejection fraction is visually estimated at 15 %. Tissue Doppler/Mitral Doppler indices are consistent with restrictive physiology with markedly elevated left atrial pressure (Stage III-IV diastolic dysfunction). There is mild enlargement of left atrium. Mild mitral leaflet calcification. Mild mitral annular calcification. Moderate mitral valve regurgitation. The regurgitation jet is eccentrically directed which may underestimate the severity of mitral regurgitation. No significant aortic stenosis or insufficiency. Aortic cusps appear mildly calcified. The estimated Peak RVSP is 63 mmHg. Tricuspid valve appears mildly thickened. There is mild tricuspid regurgitation. Dilated IVC with poor respiratory collapse consistent with elevated right atrial pressure. Electronically Signed By: Jarek Mejia 2018-10-01 17:28:23 PDT
[2018-10-01] MEDS: LORAZEPAM 2 MG INJ IV PRN (19:09)
--- NOTE | 2018-10-01 19:20 | CONS ---
Assessment/Plan Assessment/Plan Hospital Course (Demo Recall) 1. Congestive heart failure acute on chronic secondary to severe systolic LV dysfunction and noncompliance and drug use 2. Pulmonary hypertension 3. Severe nonischemic cardiomyopathy 4. Hypertension 5. History of drug use including methamphetamine use and smoker 6. Noncompliance Recommendations: Important compliant with the medication was emphasized to the patient. Patient has been already placed on appropriate medical therapy including beta-lucille COURTNEY inhibitor. We will try to interrogate the device tomorrow if patient does not sign out AMA Thank you for his referral. We will continue follow along with you ALEX OLSEN MD [facility] Consultation Date/Type/Reason Admit Date/Time Oct 01, 2018 at 00:18 Date of Consultation: Oct 01, 2018 Type of Consult Cardiology Reason for Consultation CHF Requesting Provider: CALEB PAIGE Date/Time of Note DATE: 10/01/18 TIME: 19:16 Hx of Present Illness Interventional cardiology consultation note Chief complaint: Shortness of breath Reason for consult: CHF, cardiomyopathy History of present illness: Thank you for this referral. History was informed the patient discussion with staff and physician review of the old chart patient also noted on previous admission to the hospital This is a 42-year-old gentleman with history of severe nonischemic cardiomyopathy ejection fraction of 15%, history of V. fib cardiac arrest requ iring ICD placement who presented to emergency room with increasing shortness of breath. Patient has a history of drug use including methamphetamine use. He continues to use drugs and his last use was a couple of days ago. Came in this morning with increasing shortness of breath. He said he might be anxiety. Coronary breathing has resolved not feeling better. Patient is taking his medication but his report but apparently is not very compliant with them. Allergies: No known drug allergies Medications as per medical reconciliation sheet. Patient has been noncompliant at home with his medications Family history: Denies any early coronary artery disease to me Social history: Active smoker. Use drug including methamphetamine. Denies heavy alcohol use Past medical history: V. fib cardiac arrest in May 2018 severe nonischemic cardiomyopathy ejection fracture of about 15% Allergies: No known drug allergies Review of system: Patient denies all others except for above-mentioned Past Medical History Home Meds Active Scripts Ferrous Sulfate (Ferrous Sulfate) 325 Mg Tablet., 325 MG PO DAILY for 30 Days, #30 TAB 6 Refills Prov:ESTHER TABARES MD 06/13/18 Digoxin* (Digitek*) 125 Mcg Tablet, 0.125 MG PO DAILY@13 for 30 Days, #30 TAB 6 Refills Prov:ESTHER TABARES MD 06/13/18 Carvedilol* (Carvedilol*) 6.25 Mg Tablet, 6.25 MG PO BID for 30 Days, #60 TAB 6 Refills Prov:ESTHER TABARES MD 06/13/18 Furosemide* (Furosemide*) 40 Mg Tablet, 40 MG PO DAILY PRN for swelling of lower extremities for 30 Days, #30 TAB 6 Refills Prov:ESTHER TABARES MD 06/13/18 Lisinopril* (Lisinopril*) 10 Mg Tablet, 10 MG PO DAILY for 30 Days, #30 TAB Prov:ESTHER TABARES MD 06/13/18 Medications Current Medications Ondansetron HCl (Zofran Inj) 4 mg ER BRIDGE PRN IV NAUSEA/VOMITING; Start 10/01/18 at 00:30; Stop 10/02/18 at 00:29 Acetaminophen (Tylenol Tab) 650 mg ER BRIDGE PRN PO .MILD PAIN 1-3 OR TEMP; Start 10/01/18 at 00:30; Stop 10/02/18 at 00:29 IV Flush (NS 3 ml) 3 ml PER PROTOCOL IV ; Start 10/01/18 at 01:00 Lorazepam (Ativan) 1 mg Q4 PRN IV CONTROL WITHDRAWAL SYMPTOMS Last administered on 10/01/18at 19:09; Admin Dose 1 MG; Start 10/01/18 at 01:00 Ondansetron HCl (Zofran Inj) 4 mg Q6H PRN IV NAUSEA/VOMITING; Start 10/01/18 at 01:00 Aspirin (Aspirin) 81 mg DAILY PO Last administered on 10/01/18at 08:05; Admin Dose 81 MG; Start 10/01/18 at 09:00 Nitroglycerin (Nitroglycerin (Sl Tab) 0.4 Mg) 1 tab Q5M PRN SL .CHEST PAIN; Start 10/01/18 at 01:00 Acetaminophen (Tylenol Tab) 650 mg Q6H PRN PO .PAIN 1-3 OR TEMP; Start 10/01/18 at 01:00 Morphine Sulfate (morphine) 2 mg Q4H PRN IV .PAIN 7-10; Start 10/01/18 at 01:00 Docusate Sodium (Colace) 100 mg Q12H PRN PO .CONSTIPATION; Start 10/01/18 at 01:00 Bisacodyl (Dulcolax) 5 mg DAILY PRN PO .CONSTIPATION; Start 10/01/18 at 01:00 Heparin Sodium (Porcine) (Heparin (5000 Units/1ml)) 5,000 unit Q8 SC ; Start 10/01/18 at 01:00 Digoxin (Digoxin) 0.125 mg DAILY@13 PO ; Start 10/01/18 at 13:00 Furosemide (Lasix) 40 mg DAILY@0600 PRN PO swelling of lower extremities; Start 10/01/18 at 01:00 Lisinopril (Zestril) 10 mg DAILY PO Last administered on 10/01/18at 08:06; Admin Dose 10 MG; Start 10/01/18 at 09:00 Ferrous Sulfate (Ferrous Sulfate (Ec)) 325 mg DAILY PO Last administered on 10/01/18at 08:06; Admin Dose 325 MG; Start 10/01/18 at 09:00 Carvedilol (Coreg) 6.25 mg BID PO Last administered on 10/01/18at 08:06; Admin Dose 6.25 MG; Start 10/01/18 at 09:00 Allergies: Coded Allergies: No Known Allergy (Unverified , 06/15/18) Past Surgical History Past Surgical Hx: other Social History Smoking Status: Current every day smoker Drug Use: other (Methamphetamine) Exam/Review of Systems Vital Signs Vitals Vital Signs Date Temp Pulse Resp B/P (MAP) Pulse Ox O2 O2 Flow FiO2 Time Delivery Rate 10/01/18 98.3 99 18 142/103 96 Room Air 15:14 (116) 10/01/18 00:00 09/30/18 40 22:34 Intake and Output 09/30/18 09/30/18 10/01/18 1515:00 23:00 07:00 IntakeIntake Total 120 ml BalanceBalance 120 ml Exam Exam General: no acute distress HEENT: NC/AT. pupils are equal. round. NECK: NO JVD. no stridor. Chest: Status post ICD in the left side no bleeding or hematoma CV: RRR. systolic murmur; no gallop or rubs. PULM: no wheezing or rhonchi. GI: SOFT, NT, ND, no rebound or guarding Extremity: trace B/L LE edema. no clubbing. neuro: awake and alert, OX3. Psych: calm and pleasant rectal: deferred : normal Echo reviewed showed ejection fraction of 15% with severely dilated left ventricle Labs Result Diagram: 10/01/18 0500 10/01/18 0500 Results 24hrs Laboratory Tests Test 09/30/18 22:30 10/01/18 01:28 10/01/18 04:59 10/01/18 05:00 White Blood Count 7.1 # 6.8 Red Blood Count 4.96 5.00 Hemoglobin 12.9 L 12.8 L Hematocrit 40.8 L 40.2 L Mean Corpuscular 82.3 80.4 L Volume Mean Corpuscular 26.0 L 25.6 L Hemoglobin Mean Corpuscular 31.6 L 31.8 L Hemoglobin Concent Red Cell 17.7 H 18.0 H Distribution Width Platelet Count 293 299 Mean Platelet Volume 9.7 9.4 Immature 0.300 0.100 Granulocytes % Neutrophils % 54.6 60.6 Lymphocytes % 35.3 30.6 Monocytes % 6.5 5.1 Eosinophils % 2.3 2.6 Basophils % 1.0 1.0 Nucleated Red Blood 0.0 0.0 Cells % Immature 0.020 0.010 Granulocytes # Neutrophils # 3.9 4.1 Lymphocytes # 2.5 2.1 Monocytes # 0.5 0.4 Eosinophils # 0.2 0.2 Basophils # 0.1 0.1 Nucleated Red Blood 0.0 0.0 Cells # Prothrombin Time 14.5 Prothrombin Time 1.1 Ratio INR International 1.12 Normalized Ratio Activated 31.5 Partial Thromboplast Time Sodium Level 140 140 Potassium Level 4.0 3.7 Chloride Level 103 105 Carbon Dioxide Level 27 24 Anion Gap 10 11 Blood Urea Nitrogen 19 21 H Creatinine 1.52 H 1.31 H Est Glomerular 51 L > 60 Filtrat Rate mL/min Glucose Level 101 98 Calcium Level 9.1 9.2 Troponin I 0.042 0.057 Digoxin Level < 0.4 L Ethyl Alcohol Level < 10.0 H Urine Opiates Screen Negative Urine Barbiturates Negative Urine Amphetamines Negative Screen Urine Negative Benzodiazepines Screen Urine Cocaine Screen Negative Urine Cannabinoids Negative Creatine Kinase 61 Creatine Kinase 2.4 Index Creatinine Kinase MB 1.47 (Mass) Hemoglobin A1c 5.3 Magnesium Level 2.0 Total Bilirubin 1.5 H Direct Bilirubin 0.00 Indirect Bilirubin 1.5 H Aspartate Amino 33 Transf (AST/SGOT) Alanine 45 Aminotransferase (AL T/SGPT) Alkaline Phosphatase 121 Total Protein 7.5 Albumin 3.9 Globulin 3.60 H Albumin/Globulin 1.08 Ratio Triglycerides Level 104 Cholesterol Level 184 LDL Cholesterol, 141 Calculated HDL Cholesterol 22 L Cholesterol/HDL 8.3 Ratio Thyroid Stimulating 1.100 Hormone (TSH) Test 10/01/18 09:38 Creatine Kinase 56 Creatine Kinase 2.9 Index Creatinine Kinase MB 1.60 (Mass) Troponin I 0.053 B-Type Natriuretic 6890 H Peptide Medications Medications Current Medications Ondansetron HCl (Zofran Inj) 4 mg ER BRIDGE PRN IV NAUSEA/VOMITING; Start 10/01/18 at 00:30; Stop 10/02/18 at 00:29 Acetaminophen (Tylenol Tab) 650 mg ER BRIDGE PRN PO .MILD PAIN 1-3 OR TEMP; Start 10/01/18 at 00:30; Stop 10/02/18 at 00:29 IV Flush (NS 3 ml) 3 ml PER PROTOCOL IV ; Start 10/01/18 at 01:00 Lorazepam (Ativan) 1 mg Q4 PRN IV CONTROL WITHDRAWAL SYMPTOMS Last administered on 10/01/18at 19:09; Admin Dose 1 MG; Start 10/01/18 at 01:00 Ondansetron HCl (Zofran Inj) 4 mg Q6H PRN IV NAUSEA/VOMITING; Start 10/01/18 at 01:00 Aspirin (Aspirin) 81 mg DAILY PO Last administered on 10/01/18at 08:05; Admin Dose 81 MG; Start 10/01/18 at 09:00 Nitroglycerin (Nitroglycerin (Sl Tab) 0.4 Mg) 1 tab Q5M PRN SL .CHEST PAIN; Start 10/01/18 at 01:00 Acetaminophen (Tylenol Tab) 650 mg Q6H PRN PO .PAIN 1-3 OR TEMP; Start 10/01/18 at 01:00 Morphine Sulfate (morphine) 2 mg Q4H PRN IV .PAIN 7-10; Start 10/01/18 at 01:00 Docusate Sodium (Colace) 100 mg Q12H PRN PO .CONSTIPATION; Start 7/26/19 at 01:00 Bisacodyl (Dulcolax) 5 mg DAILY PRN PO .CONSTIPATION; Start 10/01/18 at 01:00 Heparin Sodium (Porcine) (Heparin (5000 Units/1ml)) 5,000 unit Q8 SC ; Start 10/01/18 at 01:00 Digoxin (Digoxin) 0.125 mg DAILY@13 PO ; Start 10/01/18 at 13:00 Furosemide (Lasix) 40 mg DAILY@0600 PRN PO swelling of lower extremities; Start 10/01/18 at 01:00 Lisinopril (Zestril) 10 mg DAILY PO Last administered on 10/01/18at 08:06; Admin Dose 10 MG; Start 10/01/18 at 09:00 Ferrous Sulfate (Ferrous Sulfate (Ec)) 325 mg DAILY PO Last administered on 10/01/18at 08:06; Admin Dose 325 MG; Start 10/01/18 at 09:00 Carvedilol (Coreg) 6.25 mg BID PO Last administered on 10/01/18at 08:06; Admin Dose 6.25 MG; Start 10/01/18 at 09:00 ALEX OLSEN MD Oct 01, 2018 19:20
[2018-10-01 20:54] VITALS: BP 144/104; PULSE 108; RESP 20
[2018-10-02 00:38] VITALS: BP 125/78; PULSE 98; RESP 20
[2018-10-02] MEDS: LORAZEPAM 2 MG INJ IV PRN (03:15)
[2018-10-02 03:24] VITALS: BP 130/100; PULSE 95; RESP 20
[2018-10-02] MEDS: HEPARIN 5,000 UNIT/1 ML VIAL SC SCH (05:23)
[2018-10-02 07:26] VITALS: BP 150/100; PULSE 99; RESP 20
[2018-10-02] MEDS: ASPIRIN 81 MG TAB PO SCH (08:20)
[2018-10-02] MEDS: FERROUS SULFATE (EC) 325 MG TAB PO SCH (08:21)
[2018-10-02] MEDS: LISINOPRIL 10 MG TAB PO SCH (08:21)
--- NOTE | 2018-10-02 11:02 | PDOCDIS ---
PAPI BERUMEN NP Oct 02, 2018 11:02
--- NOTE | 2018-10-02 13:07 | DS ---
Date/Time of Note Date/Time of Note DATE: 10/02/18 TIME: 13:04 Discharge Summary Admission/Discharge Info Admit Date/Time Oct 02, 2018 at 07:17 Discharge Date/Time Left AGAINST MEDICAL ADVICE Discharge Diagnosis 1. Acute on chronic congestive heart failure exacerbation, systolic dysfunction. 2. Cardiomyopathy with ejection fraction of 15%. 3. Pulmonary hypertension. 4. Microcytic, hypochromic anemia. 5. Methamphetamine abuse. 6. Noncompliance with medications and medical advice. Patient Condition: Guarded Consults 1. Jarek Mejia MD, Cardiology. Procedures 2D Echocardiogram Conclusions: Normal left ventricular wall thickness. Severe enlargement of left ventricle cavity. Severe left ventricular systolic dysfunction. Ejection fraction is visually estimated at 15 %. Tissue Doppler/Mitral Doppler indices are consistent with restrictive physiology with markedly elevated left atrial pressure (Stage III-IV diastolic dysfunction). There is mild enlargement of left atrium. Mild mitral leaflet calcification. Mild mitral annular calcification. Moderate mitral valve regurgitation. The regurgitation jet is eccentrically directed which may underestimate the severity of mitral regurgitation. No significant aortic stenosis or insufficiency. Aortic cusps appear mildly calcified. The estimated Peak RVSP is 63 mmHg. Tricuspid valve appears mildly thickened. There is mild tricuspid regurgitation. Dilated IVC with poor respiratory collapse consistent with elevated right atrial pressure. Hx of Present Illness This is a 42-year-old male past medical history of cardiomyopathy with ejection fraction of 15%, V. fib cardiac arrest, status post AICD placement, pulmonary hypertension, and substance abuse who presented to the emergency room with chief complaint of chest pain and dyspnea, who was admitted to inpatient setting for further treatment and evaluation. Hospital Course The patient was monitored on telemetry floor. The patient was diuresed while carefully monitoring renal function. A cardiology consult was obtained, provided the patient's extensive cardiac history. The patient underwent a repeat 2D echocardiogram that was showing ejection fraction of 15% and evidence of stage III to stage IV diastolic dysfunction. Patient has a history of V. fib cardiac arrest and he is status post AICD placement. The patient was evaluated by cardiology and recommended current medical management. The patient's AICD was interrogated by [facility] and documented functioning AICD and multiple episodes of nonsustained ventricular tachycardia. The patient's 2D echocardiogram also revealed evidence of pulmonary hypertension with PA systolic pressure of 63 mmHg. The patient's pulmonary hypertension could be most probably secondary to his left-sided heart disease. The patient has underlying microcytic, hypochromic anemia. The patient was maintained on iron supplements. The patient is a current methamphetamine abuser. The patient was advised on cessation. The patient has documented noncompliance by being noncompliant with medications and medical advice. On 10/02/2018, the patient wanted to leave the hospital. The patient was instructed to wait for the education paraprofessional to evaluate him before getting discharge. Nevertheless, the patient left the hospital with out signing the AMA form. No follow-up plan could be confirmed since the patient left the hospital AGAINST MEDICAL ADVICE. At this time I would like to thank Dr. Mejia for seeing the patient in providing clinical recommendations. The patient was seen in collaboration with Dr. Mercer. Home Meds Active Scripts Ferrous Sulfate (Ferrous Sulfate) 325 Mg Tablet.dr, 325 MG PO DAILY for 30 Days, #30 TAB 6 Refills Prov:ESTHER TABARES MD 06/13/18 Digoxin* (Digitek*) 125 Mcg Tablet, 0.125 MG PO DAILY@13 for 30 Days, #30 TAB 6 Refills Prov:ESTHER TABARES MD 06/13/18 Carvedilol* (Carvedilol*) 6.25 Mg Tablet, 6.25 MG PO BID for 30 Days, #60 TAB 6 Refills Prov:ESTHER TABARES MD 06/13/18 Furosemide* (Furosemide*) 40 Mg Tablet, 40 MG PO DAILY PRN for swelling of lower extremities for 30 Days, #30 TAB 6 Refills Prov:ESTHER TABARES MD 06/13/18 Lisinopril* (Lisinopril*) 10 Mg Tablet, 10 MG PO DAILY for 30 Days, #30 TAB Prov:ESTHER TABARES MD 06/13/18 Follow-up Plan No follow-up plan could be confirmed since the patient left the hospital AGAINST MEDICAL ADVICE. Primary Care Provider [facility] Time spent on discharge: < 30 minutes Pending Labs Laboratory Tests Test 10/02/18 05:18 White Blood Count 7.3 10^3/ul (4.8-10.8) Red Blood Count 5.01 10^6/ul (4.70-6.10) Hemoglobin 12.8 g/dl (14.0-18.0) Hematocrit 40.5 % (42.0-52.0) Mean Corpuscular Volume 80.8 fl (82.0-101.0) Mean Corpuscular Hemoglobin 25.5 pg (29.0-33.0) Mean Corpuscular Hemoglobin Concent 31.6 g/dl (32.0-37.0) Red Cell Distribution Width 17.6 % (11.5-14.5) Platelet Count 306 10^3/UL (140-415) Mean Platelet Volume 9.6 fl (7.4-10.4) Immature Granulocytes % 0.300 % (0.001-0.429) Neutrophils % 62.9 % (39.0-77.0) Lymphocytes % 26.6 % (15.0-51.0) Monocytes % 5.8 % (0.0-11.0) Eosinophils % 3.4 % (0.0-7.0) Basophils % 1.0 % (0.0-2.0) Nucleated Red Blood Cells % 0.0 /100WBC (0.0-0.0) Immature Granulocytes # 0.020 10^3/ul (0.0-0.031) Neutrophils # 4.6 10^3/ul (1.6-7.5) Lymphocytes # 1.9 10^3/ul (0.8-2.9) Monocytes # 0.4 10^3/ul (0.3-0.9) Eosinophils # 0.3 10^3/ul (0.0-0.5) Basophils # 0.1 10^3/ul (0.0-0.1) Nucleated Red Blood Cells # 0.0 10^3/ul (0.0-0.0) Sodium Level 140 mmol/L (135-144) Potassium Level 4.2 mmol/L (3.5-5.1) Chloride Level 106 mmol/L (97-110) Carbon Dioxide Level 25 mmol/L (21-31) Anion Gap 9 (5-13) Blood Urea Nitrogen 25 mg/dl (7-20) Creatinine 1.15 mg/dl (0.61-1.24) Est Glomerular Filtrat Rate mL/min > 60 mL/min (>60) Glucose Level 106 mg/dl (70-220) Calcium Level 9.1 mg/dl (8.4-10.2) Phosphorus Level 4.3 mg/dl (2.5-4.9) Magnesium Level 2.0 mg/dl (1.7-2.5) Total Bilirubin 1.1 mg/dl (0.2-1.3) Direct Bilirubin 0.00 mg/dl (0.00-0.20) Indirect Bilirubin 1.1 mg/dl (0-1.1) Aspartate Amino Transf (AST/SGOT) 26 IU/L (15-46) Alanine Aminotransferase (ALT/SGPT) 30 IU/L (13-69) Alkaline Phosphatase 100 IU/L (42-121) B-Type Natriuretic Peptide 7300 PG/ML (0-125) Total Protein 6.7 g/dl (6.1-8.1) Albumin 3.4 g/dl (3.3-4.9) Globulin 3.30 g/dl (1.3-3.2) Albumin/Globulin Ratio 1.03 PAPI BERUMEN NP Oct 02, 2018 13:07
== END 2018-10-02 20:24 | disposition left against medical advice (07) | DRG 293 ==
LOC: E/R 21:52 → 6WM 10-01 00:18 → OBSVTOIN 10-02 07:17
PROVIDERS: ADMIT Family Medicine; ATTEND Family Medicine
DX: I11.0 Hypertensive heart disease with heart failure (principal); I27.20 Pulmonary hypertension, unspecified; I42.9 Cardiomyopathy, unspecified; D50.9 Iron deficiency anemia, unspecified; F15.10 Other stimulant abuse, uncomplicated; F17.200 Nicotine dependence, unspecified, uncomplicated; I50.23 Acute on chronic systolic (congestive) heart failure; F41.9 Anxiety disorder, unspecified; Z91.14 Patient's other noncompliance with medication regimen; Z79.82 Long term (current) use of aspirin; Z95.810 Presence of automatic (implantable) cardiac defibrillator; Z53.21 Procedure and treatment not carried out due to patient leaving prior to being seen by health care provider
CPT/HCPCS: 36415; 71045; 80048; 80053; 80061; 80162; 80307; 82306; 82550; 82553; 83036; 83735; 83880; 84100; 84443; 84484; 85025; 85610; 85730; 93005; 93306; 94644; 94660; 96374; G0378; J1644; J1940; J2060

== ENCOUNTER 2018-12-31 15:37 | Inpatient (IN) | payer OTHER ==
[~2018-12-31] VITALS: Ht 167.6 cm; Wt 68.8 kg
[~2018-12-31 15:37] MED LIST changes: +CARV25TA79 PO; +CARV6.25 PO; +FER325 PO; +SPIR25TA PO; +[UNRECOGNIZED DRUG - CODE] PO
[2018-12-31] MEDS ORDERED: ASPIRIN 81 MG TAB PO STA (15:43)
[2018-12-31] MEDS ORDERED: ONDANSETRON 4 MG INJ IV PRN ×2 (17:00→18:00)
[2018-12-31] MEDS ORDERED: ACETAMINOPHEN 325 MG TAB PO PRN ×2 (17:00→18:00)
[2018-12-31] MEDS ORDERED: LORAZEPAM 2 MG INJ IV ONE ×2 (17:30→21:30)
[2018-12-31] MEDS ORDERED: LORAZEPAM 0.5 MG TAB PO PRN (18:00)
[2018-12-31] MEDS ORDERED: HYDROCODONE/APAP (5/325) TAB PO PRN (18:00)
[2018-12-31] MEDS ORDERED: NACL 0.9% 3 ML SYG IV SCH (18:00)
[2018-12-31] MEDS ORDERED: NITROGLYCERIN (SL) 0.4 MG TAB SL PRN (18:00)
[2018-12-31 20:00] VITALS: Ht 167.6 cm; Wt 68.8 kg
[2018-12-31 20:27] VITALS: BP 182/105; PULSE 55
[2018-12-31 21:00] VITALS: BP 163/111; PULSE 58; RESP 25
[2018-12-31] MEDS: NICOTINE (21 MG/24 HR) PATCH TRANSDERM SCH (22:34)
[2019-01-01] MEDS ORDERED: HALOPERIDOL 5 MG INJ IM ONE (00:30)
[2019-01-01] MEDS ORDERED: DIPHENHYDRAMINE 50 MG INJ IV ONE (00:30)
[2019-01-01 03:02] VITALS: BP 173/115; PULSE 59; RESP 30
[2019-01-01 07:36] VITALS: PULSE 114; RESP 20
[2019-01-01 08:11] VITALS: BP 154/103; PULSE 110; RESP 20
[2019-01-01] MEDS: LISINOPRIL 10 MG TAB PO SCH (08:14)
[2019-01-01] MEDS: NICOTINE (21 MG/24 HR) PATCH TRANSDERM SCH (08:15)
[2019-01-01] MEDS: ESCITALOPRAM 10 MG TAB PO SCH (10:04)
[2019-01-01 11:44] VITALS: BP 149/98; PULSE 110; RESP 20
[2019-01-01] MEDS: LORAZEPAM 1 MG TAB PO PRN (14:07)
[2019-01-01] MEDS: DIGOXIN 0.125 MG TAB PO SCH (14:10)
[2019-01-01 16:01] VITALS: BP 139/95; PULSE 111; RESP 21
[2019-01-01] MEDS ORDERED: FUROSEMIDE 40 MG INJ IV SCH (18:00)
[2019-01-01 19:01] VITALS: BP 140/87; PULSE 11; PULSE 111; RESP 20
[2019-01-02] VITALS (7 sets, daily range): BP systolic 112–138; BP diastolic 59–89; PULSE 66–110; RESP 20–24
[2019-01-02] MEDS: LORAZEPAM 1 MG TAB PO PRN ×3 (04:24→23:02)
[2019-01-02] MEDS: ESCITALOPRAM 10 MG TAB PO SCH (08:55)
[2019-01-02] MEDS: NICOTINE (21 MG/24 HR) PATCH TRANSDERM SCH (08:55)
[2019-01-02] MEDS: LISINOPRIL 10 MG TAB PO SCH (08:58)
[2019-01-02] MEDS: PIPER-TAZO 3.375 GM IV (PMX) 100 ML IVPB SCH ×2 (11:45→18:15)
[2019-01-02] MEDS: DIGOXIN 0.125 MG TAB PO SCH (12:52)
[2019-01-02] MEDS: FUROSEMIDE 40 MG TAB PO SCH (18:14)
[2019-01-03] MEDS: PIPER-TAZO 3.375 GM IV (PMX) 100 ML IVPB SCH ×2 (01:09→06:29)
[2019-01-03 04:20] VITALS: BP 133/69; PULSE 63; RESP 19
[2019-01-03] MEDS: FUROSEMIDE 40 MG TAB PO SCH (06:30)
[2019-01-03 07:21] VITALS: BP 116/75; PULSE 89; RESP 20
[2019-01-03] MEDS: NICOTINE (21 MG/24 HR) PATCH TRANSDERM SCH (08:30)
[2019-01-03] MEDS: ESCITALOPRAM 10 MG TAB PO SCH (08:31)
[2019-01-03] MEDS: LISINOPRIL 10 MG TAB PO SCH (08:31)
== END 2019-01-03 10:10 | disposition left against medical advice (07) | DRG 292 ==
LOC: E/R 15:37 → TEL 16:40 → OBSVTOIN 01-01 09:42 → TEL 01-01 09:57 → 6WM 01-01 11:37
PROVIDERS: ADMIT Internal Medicine; ATTEND Internal Medicine
DX: I11.0 Hypertensive heart disease with heart failure (principal); F33.2 Major depressive disorder, recurrent severe without psychotic features; I50.23 Acute on chronic systolic (congestive) heart failure; I27.20 Pulmonary hypertension, unspecified; I42.0 Dilated cardiomyopathy; F15.10 Other stimulant abuse, uncomplicated; F17.200 Nicotine dependence, unspecified, uncomplicated; K13.79 Other lesions of oral mucosa; Z91.14 Patient's other noncompliance with medication regimen; Z95.810 Presence of automatic (implantable) cardiac defibrillator
CPT/HCPCS: 70490; 71045; 80048; 80053; 80061; 80307; 82550; 82553; 82962; 83036; 83735; 84100; 84443; 84484; 85025; 93005; G0378; J1200; J1630; J1940; J2060; J2543